=== PATIENT | male | born 1995 | race Caucasian/White ===

== ENCOUNTER 2022-07-11 14:46 | Outpatient (OUT) | payer BC, SELFPAY ==
[2022-07-11 15:29] LABS: Chol HDL Ratio 2.6; Cholesterol 165 mg/dL (<=200); HDL Cholesterol 64 mg/dL (40-60); Thyroid Stimulating Hormone 5.663 uIU/mL (0.358-3.740); Triglycerides 115 mg/dL (<=150)
[2022-07-11 15:39] LABS: Estimated Average Glucose 88 mg/dL; Glycohemoglobin A1C 4.7 % (4.5-6.2)
== END 2022-07-11 14:47 ==
PROVIDERS: PCP Internal Medicine; Visit Provider Internal Medicine
DX: F32.A Depression, unspecified (principal); F41.9 Anxiety disorder, unspecified; Z13.220 Encounter for screening for lipoid disorders; Z13.1 Encounter for screening for diabetes mellitus
CPT/HCPCS: 36415; 80061; 83036; 84443

== ENCOUNTER 2024-03-17 15:34 | Emergency (ER) | payer BC, SELFPAY ==
[2024-03-17 15:44] VITALS: BP 142/84; PULSE 80; PULSE 82; TEMP 36.4; O2SAT 98; O2SAT 99; BMI 37.3
--- NOTE | 2024-03-17 15:51 | ECG_ITS ---
[facility] Test Date: 2024-03-17 Pat Name: JENNIFER VERAS Department: Room: - Gender: Male Color Expert: : 1995 Requested By: SHAIKH EKATERINA Order Number: [id number] Reading MD: DION TINOCO Measurements Intervals [place] Rate: 81 P: 49 VA: 148 QRS: 42 QRSD: 82 T: 57 QT: 366 QTc: 403 Interpretive Statements 1100 Sinus rhythm 9110 normal ECG Compared to ECG 10/22/2021 21:52:03 Sinus bradycardia no longer present Electronically Signed On 03-17-2024 20:23:12 EST by DION TINOCO
--- NOTE | 2024-03-17 15:52 | ED_ITS ---
HPI - Chest Pain General Chief Complaint: Chest Pain Stated Complaint: HEART RACING, DISCOMFORT/PAIN Time Seen by Provider: 03/17/24 15:36 Source: patient Mode of arrival: walk-in Limitations: no limitations History of Present Illness HPI narrative: Patient is a 28-year-old male who presents to the emergency department for evaluation of chest discomfort and palpitations that occurred 2 nights ago. He states he was woken up by multiple episodes of feeling discomfort in his chest and feeling his heart racing. He states it happened several times during the night, he had no symptoms yesterday and today he states he has had headache and some diarrhea. No fevers, cough or congestion. He has no active chest pain, palpitations or shortness of breath. He is noted to be with normal vital signs on arrival. He has no history of heart or lung problems. No sick contacts in the home. He is a former smoker. He denies any peripheral edema, abdominal pain or vomiting. Related Data Home Medications ?Medication ?Instructions ?Recorded ?Confirmed buspirone 30 mg tablet 30 mg PO DAILY 03/17/24 03/17/24 mirtazapine 15 mg tablet 15 mg PO DAILY 03/17/24 03/17/24 omeprazole 40 mg capsule,delayed 40 mg PO DAILY 03/17/24 03/17/24 release Allergies Allergy/AdvReac Type Severity Reaction Status Date / Time No Known Drug Allergies Allergy Verified 03/17/24 15:42 Review of Systems ROS Constitutional Denies: fever or chills Ears, nose, mouth, and throat Denies: throat pain or nasal congestion Cardiovascular Reports: chest pain and palpitations; Denies: edema or swelling of feet/ankles Respiratory Denies: shortness of breath or cough Gastrointestinal Reports: nausea and diarrhea; Denies: vomiting Integumentary/Breast Denies: rash Neurological Reports: headache; Denies: numbness in extremities or weakness in extremities Hematologic/Lymphatic Denies: easy bruising or easy bleeding PFSH PFSH Social History Little interest or pleasure in doing things: not at all Feeling down, depressed, or hopeless: not at all Exam Narrative Exam Narrative: Gen.: Awake, alert, in no distress Head: Normocephalic, atraumatic ENT: Moist mucous membranes Respiratory: No respiratory distress, lungs clear bilaterally Cardio: Regular rate and rhythm Gastrointestinal: Abdomen is soft, nondistended and nontender to palpation Extremities: Moves extremities equally, no pedal edema Psych: Normal mood and affect Neuro: No focal neuro deficit Skin: Warm, dry, intact Constitutional Vital Signs, click to edit/add: Last Vital Signs Temp 97.6 F 03/17/24 15:44 Pulse 77 03/17/24 17:00 Resp 14 03/17/24 17:00 BP 118/69 03/17/24 17:00 Pulse Ox 93 L 03/17/24 17:00 O2 Del Method Room Air 03/17/24 15:44 Course Vital Signs Vital signs: Vital Signs Temperature 97.6 F 03/17/24 15:44 Pulse Rate 82 03/17/24 15:44 Respiratory Rate 16 03/17/24 15:44 Blood Pressure 142/84 H 03/17/24 15:44 Pulse Oximetry 99 03/17/24 15:44 Oxygen Delivery Method Room Air 03/17/24 15:44 Temperature 97.6 F 03/17/24 15:44 Pulse Rate 77 03/17/24 17:00 Respiratory Rate 14 03/17/24 17:00 Blood Pressure 118/69 03/17/24 17:00 Pulse Oximetry 93 L 03/17/24 17:00 Oxygen Delivery Method Room Air 03/17/24 15:44 MDM - Chest Pain MDM Narrative Medical decision making narrative: Laboratory studies reviewed and noted within normal limits including D-dimer and troponin. No EKG changes. Chest x-ray is stable. Patient was given education and reassurance and discharged home to follow-up with primary care. Return to the ER if symptoms change or worsen SUPERVISED APC VISIT, PHYSICIAN ATTESTATION: Based on the medical record the care appears appropriate. ? Medical Records Data Attestation: I reviewed the patient's medical records. Lab Data Attestation: I reviewed the patient's lab results. Labs: Lab Results 03/17/24 Range/Units 15:50 WBC 6.5 (4.0-11.0) 10^3/uL RBC 5.19 (4.70-6.10) 10^6/uL Hgb 16.0 (14.0-18.0) g/dL Hct 46.2 (42.0-54.0) % MCV 89.0 (80.0-94.0) fL MCH 30.8 (25.9-34.0) pg MCHC 34.6 (29.9-35.2) g/dL RDW 12.0 (11.0-15.0) % Plt Count 299 (150-450) 10^3/uL MPV 8.9 L (9.5-13.5) fL Neut % (Auto) 55.2 (43.0-75.0) % Lymph % (Auto) 34.4 (20.5-60.0) % [place] % (Auto) 7.8 (1.7-12.0) % Eos % (Auto) 2.0 (0.9-7.0) % Baso % (Auto) 0.3 (0.2-2.0) % Neut # (Auto) 3.6 (1.4-6.5) 10^3/uL Lymph # (Auto) 2.3 (1.2-3.8) 10^3/uL [place] # (Auto) 0.5 (0.3-0.8) 10^3/uL Eos # (Auto) 0.1 (0.0-0.7) 10^3/uL Baso # (Auto) 0.0 (0.0-0.1) 10^3/uL Abs Immat Gran (auto) 0.02 (0.00-0.03) 10^3/uL Imm/Tot Granulo (auto) 0.3 (0.0-0.5) % D-Dimer <0.19 (<=0.59) mg/L FEU Sodium 141 (136-145) mmol/L Potassium 3.9 (3.5-5.1) mmol/L Chloride 103 (98-107) mmol/L Carbon Dioxide 29.7 (21.0-32.0) mmol/L Anion Gap 12.2 BUN 10.0 (7.0-18.0) mg/dL Creatinine 1.04 (0.70-1.30) mg/dL Est GFR ( Amer) >60 (>=60 mL/min/1.73m^2) Est GFR (Non-Af Amer) >60 (>=60 mL/min/1.73m^2) BUN/Creatinine Ratio 9.6 Glucose 96 (74-106) mg/dL Calcium 9.6 (8.5-10.1) mg/dL Total Bilirubin 1.5 H (0.2-1.0) mg/dL AST 21 (15-37) U/L ALT 55 (16-63) U/L Alkaline Phosphatase 43 L (46-116) U/L Troponin I High Sens 6.9 (4.0-76.1) pg/mL NT-Pro-B Natriuret Pep 28.0 (<=450.0) pg/mL Total Protein 7.4 (6.4-8.2) g/dL Albumin 4.0 (3.4-5.0) g/dL Globulin 3.4 g/dL Albumin/Globulin Ratio 1.2 TSH 2.229 (0.358-3.740) uIU/mL Imaging Data Chest x-ray: Attestation: I have reviewed the pertinent imaging results. ECG Data Attestation: I personally reviewed and interpreted this ECG as follows: (Normal sinus rhythm at a rate of 81, no acute ST elevation or ectopy. EKG reviewed by attending physician) Heart Score History: Slightly/Non-Suspicious ECG: Normal Age: <45 years Risk Factors: 1 or 2 Risk Factors Troponin: <Normal Limit Total Heart Score Recommendations & Risks:: 1 Discharge Plan Discharge Chief Complaint: Chest Pain Clinical Impression: Chest pain Patient Disposition: Home, Self-Care Time of Disposition Decision: 17:09 Condition: Good Prescriptions / Home Meds: No Action buspirone 30 mg tablet 30 mg PO DAILY mirtazapine 15 mg tablet 15 mg PO DAILY omeprazole 40 mg capsule,delayed release(DR/EC) 40 mg PO DAILY Print Language: Austrian Instructions: Noncardiac Chest Pain (ED) Referrals: Shaikh Lehman MD [Primary Care Provider] - 1 week
--- NOTE | 2024-03-17 15:56 | PC.NURSE ---
Patient reports chest pain 2 nights ago, denies chest pain at this time.
[2024-03-17 16:00] VITALS: BP 117/75; PULSE 75; O2SAT 94
[2024-03-17 16:26] LABS: Basophils Percent Auto 0.3 % (0.2-2.0); Eosinophils Absolute Auto 0.1 10^3/uL (0.0-0.7); Hematocrit 46.2 % (42.0-54.0); Immature Granulocytes Abs Auto 0.02 10^3/uL (0.00-0.03); Immature Granulocytes Pct Auto 0.3 % (0.0-0.5); Lymphocytes Absolute Auto 2.3 10^3/uL (1.2-3.8); Lymphocytes Percent Auto 34.4 % (20.5-60.0); Mean Corpuscular HGB Conc 34.6 g/dL (29.9-35.2); Mean Corpuscular Hemoglobin 30.8 pg (25.9-34.0); Mean Platelet Volume 8.9 fL (9.5-13.5); Monocytes Absolute Auto 0.5 10^3/uL (0.3-0.8); Monocytes Percent Auto 7.8 % (1.7-12.0); Neutrophils Absolute Auto 3.6 10^3/uL (1.4-6.5); Neutrophils Percent Auto 55.2 % (43.0-75.0); Platelet Count 299 10^3/uL (150-450); Red Blood Count 5.19 10^6/uL (4.70-6.10); White Blood Count 6.5 10^3/uL (4.0-11.0)
[2024-03-17 16:30] VITALS: BP 133/83; PULSE 75; O2SAT 93
[2024-03-17 16:48] LABS: Alanine Aminotransferase 55 U/L (16-63); Albumin Globulin Ratio 1.2; Alkaline Phosphatase 43 U/L (46-116); Anion Gap 12.2; Aspartate Amino Transferase 21 U/L (15-37); BUN Creatinine Ratio 9.6; Bilirubin Total 1.5 mg/dL (0.2-1.0); Calcium 9.6 mg/dL (8.5-10.1); Carbon Dioxide 29.7 mmol/L (21.0-32.0); Chloride 103 mmol/L (98-107); D Dimer <0.19 mg/L FEU (<=0.59); Estimated GFR (African America >60 (>=60 mL/min/1.73m^2); Estimated GFR (Non-African Ame >60 (>=60 mL/min/1.73m^2); Globulin 3.4 g/dL; Glucose 96 mg/dL (74-106); Potassium 3.9 mmol/L (3.5-5.1); Sodium 141 mmol/L (136-145); Thyroid Stimulating Hormone 2.229 uIU/mL (0.358-3.740); Total Protein 7.4 g/dL (6.4-8.2); Troponin I High Sensitivity 6.9 pg/mL (4.0-76.1)
--- NOTE | 2024-03-17 16:51 | XR_ITS ---
The [address] [address] Patient Name: JENNIFER VERAS MRN: [id number] date: 1995 Sex: M Assigned Patient Location: ER Current Patient Location: ED.MAIN Accession/Order Number: [id number] Exam Date: 03/17/2024 17:00 Report Date: 03/17/2024 18:37 At the request of: ROWENA STRICKLAND Procedure: XR chest 1V EXAM: XR chest 1V HISTORY: Chest pain COMPARISON: 10/22/2021 TECHNIQUE: Chest X-ray AP, 1 view FINDINGS: Support devices: None. Lungs/pleura: No consolidation, effusion, or pneumothorax. Heart and mediastinum: Normal contours. Bones: No acute abnormality identified. XR/XR chest 1V Impression: No radiographic evidence of acute cardiopulmonary process. Electronically authenticated by: JORY GRIFFITH Date: 03/17/2024 18:37
[2024-03-17 17:00] VITALS: BP 118/69; PULSE 77; O2SAT 93
== END 2024-03-17 17:17 | disposition home or self-care (01) ==
PROVIDERS: Physician Assistant; Emergency Provider Emergency Medicine
DX: R07.9 Chest pain, unspecified (principal); Z87.891 Personal history of nicotine dependence; R00.2 Palpitations
CPT/HCPCS: 36415; 71045; 80053; 83880; 84443; 84484; 85025; 85378; 93005; 99285

== ENCOUNTER 2024-05-09 15:21 | Outpatient (OUT) | payer BC, SELFPAY ==
[2024-05-09 15:35] LABS: Basophils Percent Auto 0.5 % (0.2-2.0); Eosinophils Absolute Auto 0.1 10^3/uL (0.0-0.7); Eosinophils Percent Auto 1.2 % (0.9-7.0); Hematocrit 46.7 % (42.0-54.0); Hemoglobin 16.4 g/dL (14.0-18.0); Immature Granulocytes Abs Auto 0.01 10^3/uL (0.00-0.03); Immature Granulocytes Pct Auto 0.2 % (0.0-0.5); Lymphocytes Absolute Auto 2.4 10^3/uL (1.2-3.8); Lymphocytes Percent Auto 36.3 % (20.5-60.0); Mean Corpuscular HGB Conc 35.1 g/dL (29.9-35.2); Mean Corpuscular Hemoglobin 31.1 pg (25.9-34.0); Mean Corpuscular Volume 88.6 fL (80.0-94.0); Mean Platelet Volume 8.9 fL (9.5-13.5); Monocytes Absolute Auto 0.6 10^3/uL (0.3-0.8); Monocytes Percent Auto 8.8 % (1.7-12.0); Neutrophils Absolute Auto 3.5 10^3/uL (1.4-6.5); Platelet Count 306 10^3/uL (150-450); Red Blood Count 5.27 10^6/uL (4.70-6.10); White Blood Count 6.5 10^3/uL (4.0-11.0)
[2024-05-09 16:25] LABS: Alanine Aminotransferase 54 U/L (16-63); Albumin Globulin Ratio 1.2; Albumin Level 4.1 g/dL (3.4-5.0); Alkaline Phosphatase 46 U/L (46-116); Anion Gap 12.3; Aspartate Amino Transferase 21 U/L (15-37); BUN Creatinine Ratio 8.7; Bilirubin Total 1.6 mg/dL (0.2-1.0); Calcium 9.7 mg/dL (8.5-10.1); Chloride 102 mmol/L (98-107); Chol HDL Ratio 2.5; Cholesterol 141 mg/dL (<=200); Estimated GFR (African America >60 (>=60 mL/min/1.73m^2); Estimated GFR (Non-African Ame >60 (>=60 mL/min/1.73m^2); Globulin 3.3 g/dL; Glucose 93 mg/dL (74-106); HDL Cholesterol 57 mg/dL (40-60); LDL Cholesterol Calculated 61.2 mg/dL; Potassium 4.3 mmol/L (3.5-5.1); Sodium 139 mmol/L (136-145); Thyroid Stimulating Hormone 2.541 uIU/mL (0.358-3.740); Total Protein 7.4 g/dL (6.4-8.2); Triglycerides 114 mg/dL (<=150); VLDL CHOLESTEROL 22.8 mg/dL
== END 2024-05-09 15:22 | disposition home or self-care (01) ==
LOC: LAB 15:21
PROVIDERS: PCP Nurse Practitioner; Visit Provider Nurse Practitioner
DX: Z00.00 Encounter for general adult medical examination without abnormal findings (principal)
CPT/HCPCS: 36415; 80053; 80061; 84443; 85025

== ENCOUNTER 2024-05-12 15:04 | Outpatient (REF) | payer BC, SELFPAY ==
[2024-05-12 15:48] LABS: Bilirubin Urine NEGATIVE (NEGATIVE); Blood Urine NEGATIVE (NEGATIVE); Clarity Urine CLEAR (CLEAR); Color Urine LT. YELLOW (YELLOW); Glucose Urine UA NEGATIVE (NEGATIVE); Ketones Urine NEGATIVE (NEGATIVE); Leukocyte Esterase Urine NEGATIVE (NEGATIVE); Nitrite Urine NEGATIVE (NEGATIVE); Protein Urine NEGATIVE (NEG/TRACE); Specific Gravity Urine 1.015 (1.005-1.025); Urobilinogen Urine 0.2 EU/dL (0.2-1.0)
[2024-05-12 15:50] LABS: Urine Microscopic Indicated NO
== END 2024-05-12 15:05 | disposition home or self-care (01) ==
LOC: LAB 15:04
PROVIDERS: PCP Nurse Practitioner; Visit Provider Nurse Practitioner
DX: Z00.00 Encounter for general adult medical examination without abnormal findings (principal)
CPT/HCPCS: 81003

== ENCOUNTER 2024-10-18 15:52 | Emergency (ER) | payer OTHER, BC, SELFPAY ==
--- OUTSIDE RECORDS SUMMARY | 2017-12-31 10:00 | XMS_ITS | Continuity of Care Document ---
Author Organization [facility] Address [address] [place] [address] Phone Care Team Providers Care Artillery Officer Name Role Phone Marco A River Unavailable Unavailable Allergies, Adverse Reactions, Alerts Substance Reaction Status Criticality HYDROCODONE BITARTRATE Active No In formation HOMATROPINE METHYLBROMIDE Active No Information homatropine Active No Information Medications Medication Instructions Dosage Effective Dates (start - stop) Status Comments sertraline 100 mg tablet take 1.5 tablet by oral route every day 150 MG - Active Vistaril 50 mg capsule take 1 capsule by oral route 4 times every day - Active Problems Condition Type Effective Dates (start - stop) Clini tono Status Comments No Known Problems Procedures Procedure Date Prophylaxis Adult Oral Hygiene Instruction Nut[employer] [place] Dis Dec Oral Hygiene Instruction Resin Composite 1s; Posterior 8 Resin Composite 1s; Posterior 8 Oral Hygiene Instruction Oral Hygiene Instruction Resin Composite 2s; Posterior 8 Oral Hygiene Instruction Amalgam 2 Surf Prim/perm IMMUNIZATION ADMIN HPV 9 Valent UDS Exempt Prophylaxis Adult Bitewings Four Films Periodic Oral Eval Estab Patient 2017 [employer] [place] Dis June Oral Hygiene Instruction Resin Composite 2s; Posterior 7 Resin Composite 1s; Posterior 7 Oral Hygiene Instruction Prophylaxis Adult OFFICE/OUTPATIENT VISIT, EST GLYCOSYLATED HEMOGLOBIN TEST URINALYSIS NONAUTO W/O SCOPE OFFICE/OUTPATIENT VISIT, NEW Resin Composite 3s; Posterior 6 Resin Composite 2s; Posterior 6 Prophylaxis Adult Periodic Oral Eval Estab Patient 2015 Bitewings Four Films Prophylaxis Adult Topical Sven Of Flouride Varnish 015 Tobacco Counseling Oral Hygiene Instruction Comp Oral Eval New/estab Patient 2013 Intraoral-complete Series (bw) 14 Prophylaxis Adult Advance Directives Directive Yes / No Effective Date File Name No Information Encounters Encounter Description Practice Location Reason(s) For Visit Diagnoses Date Provider Providers Copied on Encounter [facility], [address] [place] [address], [id number] , tel:[phone] Dental Clinic Encounter for screening for dental disorders 8 Perico Strickland. [address] [place] [address], [id number], [place]. tel:[phone] [address] [place] [address], [address] [place] [address], [id number] , tel:[phone] [facility] Sertraline refill (chief complaint) Body mass index (BMI) 40.0-44.9, adultAnxietyWei ght gain 8 Genesis Acevedo. [address] [place] [address], [id number], [place]. tel:[phone] [address] [place] [address], [address] [place] [address], [id number] , tel:[phone] Dental Clinic filling (chief complaint) Encounter for screening for dental disorders 8 Shiloh DMD Sushaen. [address] [place], [address], [place]. tel:[phone] [facility], [address] [place], [place], [id number] , [place] tel:[phone] Dental Clinic filling (chief complaint) Encounter for screening for dental disorders 8 Shiloh DMD Sushaen. [address] [place], [address], [place]. tel:[phone] [facility], [address] [place], [place], [id number] , [place] tel:[phone] Dental Clinic filling (chief complaint) Encounter for screening for dental disorders 8 Shiloh DMD Sushaen. [address] [place], [address], [place]. tel:[phone] [facility], [address] [place] [address], [id number] , [place] tel:[phone] [facility] No Information 8 Chava Guillen. [address] [place], [place], [id number], [place]. tel:[phone] [facility], [address] [place] [address], [id number] , [place] tel:[phone] Dental Clinic prophy (chief complaint) Encounter for screening for dental disorders 8 Santy pleitez DMD Deepasulochana . [address] [place], [address], [place]. tel:[phone] [facility], [address] [place] [address], [id number] , [place] tel:[phone] [facility] anxiety meds (chief complaint)D ennison: (chief complaint) AnxietyMelanocy tic nevi of trunkBody mass index (BMI) 36.0-36.9, adult Fe 8 Cali Hubbard. [address] [place], [address], [place]. tel:[phone] [facility], [address] [place], [place], [id number] , [place] tel:[phone] Dental Clinic filling (chief complaint) Encounter for screening for dental disorders 7 Aron Moyer. [address] [place], [place], [id number], [place]. tel:[phone] [facility], [address] [place], [place], [id number] , [place] tel: [phone] Dental Clinic prophy (chief complaint) Encounter for screening for dental disorders 7 Arnol DMD Jinbo. [address] [place], [address], [place]. tel:[phone] OFFICE/OUTPA TIENT VISIT, EST [facility], [address] [place] [address], [id number] , [place] tel: [phone] [facility] well check (chief complaint)m edication refill (chief complaint) AnxietyUrinary frequency 7 Freedom Ramos. [address] [place] [address], [id number], [place]. tel:[phone] OFFICE/OUTPA TIENT VISIT, NEW [facility], [address] [place] [address], [id number] , [place] tel: [phone] [facility] est care (chief complaint)a nxiety (chief complaint) Anxiety 6 Freedom Ramos. [address] [place], [place], [id number], [place]. tel:[phone] [facility], [address] [place] [address], [id number] , [place] tel:[phone] Dental Clinic Encounter for screening for dental disorders 0 6 Valeriano DMD Stephanie. [address], [place], [id number], [place]. tel:[phone] [facility], [address] [place] [address], [id number] , [place] tel:[phone] Dental Clinic Encounter for screening for dental disorders 6 [place] DMD May. [address] [place], [place], [id number], [place]. tel:[phone] [facility], [address] [place] [address], [id number] , tel: [phone] Dental Clinic Dental examination 5 [facility] May. [address], [place], [id number], [place]. tel:[phone] [facility], [address] [place] [address], [id number] , tel: [phone] Dental Clinic Dental examinationDent al examination [facility] May. [address], [place], [id number], [place]. tel:[phone] Family History Family Member Type Diagnosis Age At Onset Mother Problem (finding) Alive and well Paternal grandfather Problem (finding) Diabetes mellit Father Problem (finding) Alive and well Father Problem (finding) hypertension Immunizations Vaccine Date Status Comments HPV (9-valent) administered Source: New I mmunization Record Payers Payer name Insurance type Covered green party ID Geri stroud(s) Tisha Medicaid Wrap - [employer] [place] [id number] [employer] Medicaid [place] [id number] Medicaid Wrap - [employer] [place] [id number] Social History Type Description Quantity Date Captured Comments Alcohol Use Details hard liquor Caffeine Use Details soda > 32oz per day Tobacco Use Status Smoking Status Heavy tobacco smoker Sex Male Sexual Orientation Straight or heterosexual Gender Identity Male Vital Signs Date / Time: Height Weight BMI Pulse Rate Blood Pressure Temperature Respiratory Rate Body Surface Area Head Circumference Head Circ. Percentile Wt./Jagdeep. Percentile BMI percentile Pulse Ox Inhaled Ox 2:19 PM 71 /min 134/78 mm[Hg] Chief Complaint And Reason For Visit No Information Reason For Referral Reason For Referral No Information Plan Of Treatment Date Type Action Status Goal Tdap. Due on due Goal Depression screening. Due on due Goal H&P. Due on due Goal Influenza vaccine. Due on due Goal RLP. Due on due Goal Depression screening. Due on due Goal Tdap. Due on due Goal H&P. Due on due Goal RLP. Due on due Goal Influenza vaccine. Due on No due Goal Dietary management education , guidance, and counseling completed Goal RLP. Due on due Goal H&P. Due on due Goal Tdap. Due on due Goal Influenza vaccine. Due on due Goal Depression screening. Due on due Goal Tdap. Due on due Goal RLP. Due on due Goal Depression screening. Due on due Goal H&P. Due on due Goal Influenza vaccine. Due on due Goal Influenza vaccine. Due on due Goal Depression screening. Due on due Goal H&P. Due on due Goal Tdap. Due on due Goal RLP. Due on due Goal RLP. Due on due Goal Influenza vaccine. Due on due Goal Tdap. Due on due Goal Depression screening. Due on due Goal H&P. Due on due Goal H&P. Due on due Goal Influenza vaccine. Due on Ma y due Goal RLP. Due on due Goal Depression screening. Due on due Goal Tdap. Due on due Goal H&P. Due on due Goal Tdap. Due on due Goal RLP. Due on due Goal Depression screening. Due on due Goal Influenza vaccine. Due on due Goal Dietary management education , guidance, and counseling completed Goal H&P. Due on due Goal Influenza vaccine. Due on due Goal Tdap. Due on due Goal TD Vaccine. Due on 17 due Goal Tdap. Due on due Goal TD Vaccine. Due on 17 due Goal Influenza vaccine. Due on due Goal H&P. Due on due Goal Influenza vaccine. Due on due Goal Abdominal ultrasound. Due on due Goal H&P. Due on due Goal Tdap. Due on due Goal TD Vaccine. Due on 17 due Goal Tobacco cessation counseling completed Goal HPV (1st). Due on 6 due Goal Tdap. Due on due Goal H&P. Due on due Goal TD Vaccine. Due on 16 due Goal Depression screening. Due on due Goal H&P. Due on due Goal TD Vaccine. Due on 16 due Goal Tdap. Due on due Goal HPV (). Due on 6 due Goal TD Vaccine. Due on 16 due Goal HPV (). Due on 6 due Goal H&P. Due on due Goal Depression screening. Due on due Goal Tdap. Due on due Goal Depression screening. Due on due Goal Tdap. Due on due Goal TD Vaccine. Due on 15 due Goal HPV (). Due on 5 due Goal H&P. Due on due Goal TD Vaccine. Due on 14 due Goal H&P. Due on due History Of Present Illness Encounter Date Complaint History Of Prese nt Illness Sertraline refill Patient is her e today for his annual exam and a Sertraline refill. Patient states he feels the dose needs to be a little bit stronger. Patient states no other issues/concerns at this time. TGrodi [employer] filling continue with tr eatment filling filling continue with treatment filling continue with tr eatment prophy anxiety meds Pt would like to restart Zoloft. Pt came off a few months ago to see if he could tolerate not being on it. Pt states he realized he does better on this medication and would like to restart it. Seema [place]: Realized he stil l needs Zoloft and he has been off of it for three to four months. He states that he has some difficulty with anxiety. He was on 100 mgm/day. Surgeries were an appendectomy and a benign mass removed from sinus. There is no other past medical Hx and he is not a smoker. filling prophy well check Patient states christiano davidson desires to be checked for diabetes. He has been having frequent urination for a couple months. SUSAN Guevara medication refill He just picked up his last refill of Sertraline. Thinks its working, but could be better. est care Patient here for est care. Has no PCP. SUSAN Guevara anxiety Additional infor osbaldo: Pt has hx of anxiety that he tried a medication for in the past. He stopped taking it because it affected his sex life. He can't remember what it was. He now desires medication again. States he has constant anxiety with panic attacks. SUSAN Guevara. Functional Status Date Functional Assessmen t No Information Instructions Date Instruction Additional Infor osbaldo Giving encouragement to exercise Related to Body mass index (BMI) 40.0-44.9, adult Dietary management e ducation, guidance, and counseling Related to Body mass index (BMI) 40.0-44.9, adult Giving encouragement to exercise Related to Body mass index (BMI) 36.0-36.9, adult Dietary management e ducation, guidance, and counseling Related to Body mass index (BMI) 36.0-36.9, adult Assessments Type Assessment Date assessment Encounter for screening for dent al disorders Patient Care Teams Name Effective Dates (start - stop) Status Members No Information
--- OUTSIDE RECORDS SUMMARY | 2023-08-19 11:30 | XMS_ITS ---
Author Organization [facility] Address [address] [place] [address] Care Team Providers Care Solid State Tester Name Role Phone Sadia [id number] Ruby Simeon [phone] REASON FOR VISIT Tetanus Vaccine Medications Medication SIG (Take, Route, Frequency, Duration) Notes Start Date End Date Status busPIRone HCl 30 MG 1.5 tab(s) orally 2 times a day Active hydrOXYzine HCl does not know dosage *Please review and pick correct strength-formulatio n from LeadiDspan options. If intended option is not shown, discontinue and re-order from Quick Search* Active Venlafaxine HCl does not known dosage *Please review and pick correct strength-formulatio n from Medispan options. If intended option is not shown, discontinue and re-order from Quick Search* Active Ibuprofen prn *Please revi ew and pick correct strength-formulatio n from Medispan options. If intended option is not shown, discontinue and re-order from Quick Search* Active Encounters Encounter Location Date Provider Diagnosis [id number] [place] [address] 08/19/2023 Ruby Mccullough Plan Of Treatment No Information Progress Notes * EDA CbDOB:1995 (29 yo M)Acc No.[id number]:08/19/2023 Progress Note Patient: Cb SAVAGE Provider: DEREK Dumont :1995 A ge:28 Y S ex:Male Date:08/19/2023 External Visit ID:[id number] [id number] Pcp:Declined Subjective: * Chief Complaints: * 1 . Tetanus Vaccine. * Medical History: * Medications: T aking Ibuprofen , Notes to Pharmacist: prn *Please review and pick correct strength-formulation from Medispan options. If intended option is not shown, discontinue and re-order from Quick Search*, Taking Venlafaxine HCl , Notes to Pharmacist: does not known dosage *Please review and pick correct strength-formulation from Medispan options. If intended option is not shown, discontinue and re-order from Quick Search*, Taking hydrOXYzine HCl , Notes to Pharmacist: does not know dosage *Please review and pick correct strength- formulation from Medispan options. If intended option is not shown, discontinue and re-order from Quick Search*, Taking busPIRone HCl 30 MG Tablet 1.5 tab(s) orally 2 times a day Objective: * Vitals: Assessment: Plan: * Treatment: * Billing Information: * Visit Code: * Procedure Codes: Care Plan Details* * Electronic signature of [id number] uRby Mccullough APRN on 10/18/2024 at 03:09 PM CDT Sign off status: Pending * Provider: DEREK Dumont Date: 08/19/2023 Generated for Angel quarles/Carli/Kelley on: 10/18/2024 03:09 PM CDT
--- OUTSIDE RECORDS SUMMARY | 2024-10-18 16:09 | XMS_ITS | Encounter Summary ---
Author Organization [facility] Address [address] [address] Care Team Providers Care Furnace Keeper Name Role Phone Shaikh MICAH Lehman Unavailable [phone] Shaikh MICAH Lehman Primary Care Provider [phone] Diony Horowitz MD Primary Care Provider [phone] Leighann Sweeney NP Unavailable [phone] Encounter Details Date Type Department Care Team (Late st Contact Info) Description 05/21/2023 Orders Only [facility] [address] [place] [address] Shaikh Lehman MD [address] [place] [address] Social History Tobacco Use Types Packs/Day Years Used Date Smoking Tobacco: Former Cigarettes Q uit: 2013 Passive Smoke Exposure: Past Smokeless Tobacco: Never Alcohol Use Standard Drinks/Week Comments Never 0 (1 standard drink = 0.6 oz pur e alcohol) caffeine: soda/pop PHQ-2 Answer Date Recorded Patient Health Questionnaire-2 Score 0 05/01/2023 Sex and Gender Information Value Date Recorded Sex Assigned at Not on file Legal Sex Male 7:29 PM EDT Gender Identity Not on file Sexual Orientation Not on file documented as of this encounter Plan of Treatment Not on file documented as of this encounter Procedures Procedure Name Priority Date/Time Associated Diagnosis Comments SCANNED LABS Routine 05/21/2023 11:11 AM EDT documented in this encounter Results * SCANNED LABS (05/21/2023 11:11 AM EDT) Shaikh Fallon [facility]G PERFORMABLES Final Resu lt documented in this encounter Visit Diagnoses Not on filedocumented in this encounter Care Teams Furnace Keeper Relationship Specialty Start Date End Date Shaikh Lehman MD [address] [place] [id number] [facility]22 Shaikh Lehman MD [address] [place] [phone] PCP - General Internal Medicine 04/30/23 10/09/23 Diony Horowitz MD [address] [place] [phone] PCP - General Family Medicine 10/10/23 Leighann Sweeney NP [address] [place] [id number] Nurse Practitioner Family Medicine 10/10/23 documented as of this encounter
--- OUTSIDE RECORDS SUMMARY | 2024-10-18 16:09 | XMS_ITS | Patient Health Record ---
Author Organization [facility] Address [address] [place] [address] Support Name Relationship Address Phone ÁngelCb meehan Guarantor Unknown [phone] Allergies Allergen (clinical drug ingredient) Drug/Non Drug Allergy documented on EMR Reaction Allergy Type Onset Date Status homatropine / hydrocodone Hycodan hives Drug Allergy Active Reason For Referral No Information Medications Medication SIG (Take, Route, Frequency, Duration) Notes Start Date End Date Status busPIRone HCl 30 MG 1.5 tab(s) orally 2 times a day Active hydrOXYzine HCl does not know dosage *Please review and pick correct strength-formulatio n from Lozoan options. If intended option is not shown, discontinue and re-order from Quick Search* Active Venlafaxine HCl does not known dosage *Please review and pick correct strength-formulatio n from Lozoan options. If intended option is not shown, discontinue and re-order from Quick Search* Active Ibuprofen prn *Please revi ew and pick correct strength-formulatio n from Lozoan options. If intended option is not shown, discontinue and re-order from Quick Search* Active Immunizations Vaccine Route Administration Date Status Comme nts [id number] Fluzone Quad .5mL PFS 3 yrs (0.5mL Admin)NONMEDICARE IM Intramuscular 02/28/2017 Administered z7 Fluzone Quad .5mL PFS 3 yrs (0.5mL Admin)NONMEDICARE IM Intramuscular 11/12/2017 Administered [id number] Quad PFS (0.5mL Admin) 18 y/o & older Unknown 01/12/2021 Refused [id number] Quad PFS (0.5mL Admin) 18 y/o & older Unknown 01/23/2021 Refused Problems Problem Type SNOMED Code ICD Code Onset Dates Problem Status W/U Status Risk Notes Diagnosis Gastroenteritis (65087030) Gastroenteritis (K52.9) Inactive confirmed Finding Body mass index 40+ - morbidly obese (642784378) BMI 40.0-44.9, adult (Z68.41) Active confirmed Diagnosis Diarrhea (06030543) Diarrhea, unspecified type (R19.7) Active confirmed Finding Elevated blood-pressure reading without diagnosis of hypertension (981742312) Elevated blood pressure reading (R03.0) Active confirmed Plan Of Treatment No Information Insurance Providers Payer Name Payer Address Payer Phone Subscriber Number Group Number Insured Name Patient Relationship to Insured Coverage Start Date Coverage End Date [facility] [address] [place] [address] [id number] Cb Velásquez Self - patient is the insured Medical (General) History Medical History History ICD Code anxiety Surgical History Surgery Date(Month/Year) umbilical hernia repair 09/2020
--- OUTSIDE RECORDS SUMMARY | 2024-10-18 16:09 | XMS_ITS | CCD ---
Author Organization [facility] Care Team Providers Care Juvenile Detention Officer Name Role Phone MD Isabela Celeste Attending Provider Dr. KASEY DOMINGUEZ Attending Unavailable DO Memo Martinez Attending Provider [phone] [facility], Services Primary Care Provider DO Brett Mendez Other Provider JENNY Laguerre Attending Provider REQUEST, DR NONE LISTED Primary Care Unavaila ble JOSE J ., NIK Attending Unavailable JOSE J ., NIK Consulting Unavailable JOSE J ., NIK Admitting Unavailable REQUEST, NONE LISTED Primary Care Unavaila ble JOSE J ., NIK Attending Unavailable JOSE J ., NIK Admitting Unavailable JOSE ALEJANDRO, DR KEE Nascimento Consulting Unavailable HANNA BONILLA Consulting Unavailable REQUEST, NONE LISTED Primary Care Unavaila ble MARKER, SONIA Attending Unavailable MARKER, SONIA Consulting Unavailable MARKER, SONIA Admitting Unavailable ANTONY MORALES Consulting Unavailable Terri PAZ Attending Unavailable SHAIKH LEHMAN Primary Care Unavailable Terri PAZ Attending Unavailable DO Terri Cuellar Emergency Provider MD Sade Lehman Primary Care Provider DO Terri Cuellar Emergency Provider MD Sade Lehman Primary Care Provider DO Frederick Schwab Emergency Provider MD Sade Ram Primary Care Provider MD Sade Lehman Attending Provider MD Lily Hennessy Attending Provider Fawwad, Stuart Primary Care Unavailable Terri Cuellar Admitting Unavailable Terri Cuellar Attending Unavailable Fawwad, Stuart Primary Care Unavailable Frederick Schwab Admitting Unavailable Frederick Schwab Attending Unavailable Fawwad, Stuart Primary Care Unavailable Fawwad, Stuart Attending Unavailable Fawwad, Stuart Admitting Unavailable Fawwad, Stuart Attending Unavailable Fawwad, Stuart Admitting Unavailable Fawwad, Stuart Primary Care Unavailable Hennessy, Lily Admitting Unavailable Hennessy Lily Attending Unavailable Fawwad, Stuart Primary Care Unavailable Fawwad, Stuart Primary Care Unavailable Hennessy, Lily Admitting Unavailable Hennessy Lily Attending Unavailable Diony Horowitz MD Primary Care Provider Patel TELETYPESETTER, Suad Unavailable [phone] Patel TELETYPESETTER, Suad Unavailable SUAD SWEENEY Attending Unavailabl e LILIANE DOYLE Attending Unavailable HENNESSY V LILY Attending Unavailable USAD SWEENEY Attending Unavailabl e YANIRA LILAINE Attending Unavailable YANIRA LILIANE Referring Unavailable Allergies Allergy Classification Reported Allergen(s) Allergy Type Date of Onset Reaction(s) Facility (20 sources) homatropine; Translations: [homatropine] Drug Allergy 0 [facility] (20 sources) HYDROcodone; Translations: [hydrocodone] Drug Allergy 0 [facility] (2 sources) homatropine / HYDROcodone; Translations: [homatropine-hyd rocodone] Drug Allergy Weal (disorder) [facility] (1 source) homatropine / HYDROcodone Drug Allergy 3 [facility] (20 sources) Hydrocodone Bit-Homatrop Mbr Drug Allergy 4 Hives, Unknown [facility] Medications Current Medications Medication Drug Class(es) Dates Sig (Normalized) Sig (Original) acetaminophen 325 mg / oxyCODONE hydrochloride 5 mg oral tablet (1 source) Opioid Agonist Start: 06-14-2023 take 1 tablet by mouth every six hours Oxycodone-Acetami nophen Active 1 TAB PO Q6H 01 09June 14, 2023 Start: 06-14-2023 take 1 tablet by calista th every six hours Oxycodone-Acetaminophen Active 1 TAB PO Q6H 28 June 14, 2023 amoxicillin 875 mg / clavulanate 125 mg oral tablet (3 sources) Penicillin-class Antibacterial Start: 09-09-2024 End: 09-19-2024 take 1 tablet by mouth in the morning amoxicillin-clavulanate (Augmentin) 875-125 MG tablet Indications: Lump of scalp Take 1 tablet (875 mg) by mouth in the morning and 1 tablet (875 mg) before bedtime. Do all this for 10 days. Take with food. 20 tablet 09/09/2024 09/19/2024 Active aspirin 81 mg delayed release oral tablet (2 sources) Platelet Aggregation Inhibitor, Nonsteroidal Anti-inflammatory Drug Start: 05-31-2023 take 1 tablet by mouth once daily Aspirin (Adult Aspirin Regimen) 81 mg tablet,delayed release (DR/EC) Active 81 MG PO Daily May 31, 2023 12:00am busPIRone hydrochloride 30 mg oral tablet (20 sources) Start: 05-31-2023 End: 12-17-2024 take 1 tablet by mouth in the morning busPIRone (Buspar) 30 MG tablet Indications: RITA (generalized anxiety disorder) Take 1 tablet (30 mg) by mouth in the morning and 1 tablet (30 mg) before bedtime. 180 tablet 09/18/2024 12/17/2024 Active Start: 11-29-2018 take 1 mg by mouth twice daily busPIRone 7.5 mg oral tablet mg tab(s), Oral, BID, Refills(s) 0 Start Date: 11/29/18 Status: Ordered hydrOXYzine pamoate 25 mg oral capsule (1 source) Antihistamine Start: 11-29-2018 take 1 mg by mouth four times daily Vistaril 25 mg Cap mg cap(s), Oral, QID, Refills(s) 0 Start Date: 11/29/18 Status: Ordered ketoconazole 20 mg/ml topical cream (5 sources) Azole Antifungal Start: 04-23-2024 End: 05-20-2024 ketoconazole (NIZOral) 2 % cream Indications: Balanitis Apply topically Daily for 21 days Apply to affected area of penis once daily, thin layer, use up to 21 days 30 g 04/23/2024 05/20/2024 Active mirtazapine 15 mg oral tablet (20 sources) Start: 05-31-2023 End: 11-05-2024 take 1 tablet by mouth at bedtime mirtazapine (Remeron) 15 MG tablet Indications: RITA (generalized anxiety disorder) Take 1 tablet (15 mg) by mouth at bedtime 90 tablet 08/07/2024 11/05/2024 Active nystatin 100 unt/mg topical ointment (2 sources) Polyene Antifungal Start: 05-20-2024 End: 06-03-2024 nystatin (Mycostatin) ointment Indications: Candidiasis Apply topically in the morning and before bedtime. Do all this for 14 days. 60 g 05/20/2024 06/03/2024 Active omeprazole 40 mg delayed release oral capsule (20 sources) Proton Pump Inhibitor Start: 05-01-2023 End: 11-09-2024 take 1 capsule by mouth before mealtime omeprazole (PriLOSEC) [address] capsule Indications: Epigastric pain Take 1 capsule (40 mg) by mouth in the morning. Take before meals. Do not crush or chew. 90 capsule 08/11/2024 11/09/2024 Active sertraline 100 mg oral tablet (9 sources) Serotonin Reuptake Inhibitor Start: 11-29-2018 take 1 mg by mouth once daily sertraline 100 mg Tab mg tab(s), Oral, Daily, Refills(s) 0 Start Date: 11/29/18 Status: Ordered Start: 01-30-2018 End: 04-02-2018 take 100 mg by mouth once daily Sertraline Discontinued 100 MG PO Daily January 30, 2018 1:00am April 02, 2018 3:26pm Completed/Discontinued Medications Medication Drug Class(es) Dates Sig (Normalized) Sig (Original) cyclobenzaprine hydrochloride 5 mg oral tablet (5 sources) Muscle Relaxant Start: 01-29-2023 End: 05-31-2023 take 5 mg by mouth once daily Cyclobenzaprine Discontinued 5 MG PO Daily 7 January 29, 2023 6:12am May 31, 2023 8:39am FLUoxetine 20 mg oral tablet (8 sources) Serotonin Reuptake Inhibitor Start: 07-20-2019 End: 05-31-2023 take 10 mg by mouth once daily Fluoxetine Discontinued 10 MG PO Daily July 20, 2019 12:00am May 31, 2023 8:40am ondansetron 4 mg disintegrating oral tablet (20 sources) Serotonin-3 Receptor Antagonist Start: 07-20-2019 End: 05-31-2023 take 4 mg by mouth every eight hours Ondansetron Discontinued 4 MG PO Q8H July 20, 2019 12:00am May 31, 2023 8:42am Start: 11-29-2018 take 1 mg by mouth e very eight hours Zofran 4 mg Tab mg tab(s), Oral, q8hr, Refills(s) 0 Start Date: 11/29/18 Status: Ordered Start: 04-02-2018 take 4 mg by mouth t hree times daily Ondansetron Hcl Active 4 MG PO Three times daily April 02, 2018 1:00am Start: 01-30-2018 End: 02-04-2018 take 1 tablet by mouth three times daily Ondansetron Hcl (Zofran) 4 mg tablet Discontinued 4 MG PO Three times daily 15 January 30, 2018 1:00am February 04, 2018 1:02am promethazine hydrochloride 25 mg oral tablet (8 sources) Phenothiazine Start: 01-30-2018 End: 04-02-2018 take 25 mg by mouth every six hours Promethazine Discontinued 25 MG PO Q6H January 30, 2018 1:00am April 02, 2018 3:26pm Problems Active Problems Problem Classification Problem Date Documented Date Episodic/Chronic Adjustment disorders (14 sources) Adjustment disorder with depressed mood; Translations: [Adjustment disorder with depressed mood] Onset: 04-23-2024 04-23-2024 Chronic Anxiety disorders (20 sources) Anxiety disorder, unspecified; Translations: [Generalized anxiety disorder] Onset: 10-25-2021 12-24-2023 Chronic Contraceptive and procreative management (1 source) Contraception status 11-29-2018 Episodic E Codes: Unspecified (1 source) Activity, exercise machines primarily for cardiorespiratory conditioning; Translations: [ACTV EXERCISE MACH PRIM CARDIORESP] Onset: 06-21-2022 Episodic Esophageal disorders (14 sources) Gastroesophageal reflux disease; Translations: [Gastro-esophageal reflux disease without esophagitis] Onset: 04-23-2024 04-23-2024 Chronic Headache; including migraine (20 sources) Cluster headache; Translations: [Cluster headache syndrome, unspecified, not intractable] Onset: 11-05-2023 11-05-2023 Chronic Inflammatory conditions of male genital organs (12 sources) Balanitis; Translations: [Balanitis] Onset: 04-23-2024 04-23-2024 Chronic Other aftercare (1 source) Other care home (current) drug therapy; Translations: [OTH [facility] CURRENT DRUG THERAPY] Onset: 06-21-2022 Episodic Other connective tissue disease (1 source) Other soft tissue disorders related to use, overuse and pressure other site; Translations: [OTH SOFT TISS D/O USE PRSS OTH SITE] Onset: 06-21-2022 Episodic Other nervous system disorders (1 source) Acute postoperative pain; Translations: [Other acute postprocedural pain] 06-14-2023 Episodic Other non-traumatic joint disorders (4 sources) Pain in left knee; Translations: [PAIN IN LEFT KNEE] Onset: 06-20-2022 Episodic Other non-traumatic joint disorders (1 source) Pain in right knee; Translations: [PAIN IN RIGHT KNEE] Onset: 06-21-2022 Episodic Other nutritional; endocrine; and metabolic disorders (20 sources) Obesity caused by energy imbalance; Translations: [Morbid (severe) obesity due to excess calories] Onset: 05-01-2023 05-01-2023 Chronic Other nutritional; endocrine; and metabolic disorders (12 sources) Body mass index 30+ - obesity; Translations: [Body mass index (BMI) 37.0-37.9, adult] Onset: 04-23-2024 04-23-2024 Chronic Residual codes; unclassified (20 sources) Obstructive sleep apnea syndrome; Translations: [Obstructive sleep apnea (adult) (pediatric)] Onset: 05-01-2023 Resolved: 04-23-2024 05-01-2023 Chronic Screening and history of mental health and substance abuse codes (1 source) Personal history of nicotine dependence; Translations: [PERSONAL HISTORY OF NICOTINE DEPEND] Onset: 06-21-2022 Episodic Sprains and strains (2 sources) Strain of other muscle(s) and tendon(s) at lower leg level, left leg, initial encounter; Translations: [Strain of other muscle(s) and tendon(s) at lower leg level, right leg, initial encounter] Onset: 06-21-2022 Episodic Substance-related disorders (1 source) Nicotine dependence, cigarettes, uncomplicated; Translations: [NICOTINE DEPEND CIGARETTES UNCOMP] Onset: 10-25-2021 Chronic Unclassified (6 sources) Patient on antidepressant monitoring plan Onset: 08-07-2024 08-07-2024 Unclassified (6 sources) Baseline PHQ-9 Onset: 08-07-2024 08-07-2024 Past or Other Problems Problem Classification Problem Date Documented Date Episodic/Chronic Abdominal pain (20 sources) Epigastric pain; Translations: [Epigastric pain] Onset: 05-01-2023 05-01-2023 Episodic Biliary tract disease (20 sources) Calculus of gallbladder with chronic cholecystitis without obstruction; Translations: [Biliary calculus] Onset: 05-01-2023 Resolved: 04-23-2024 05-22-2023 Episodic E Codes: Cut/pierceb (1 source) Contact with other sharp object(s), not elsewhere classified, initial encounter; Translations: [CNTC OTH SHRP OB NOT ELSW CLASS INI] Onset: 01-16-2022 Episodic Mycoses (10 sources) Candidiasis; Translations: [Candidiasis, unspecified] Onset: 05-20-2024 05-20-2024 Episodic Nausea and vomiting (20 sources) Nausea and vomiting; Translations: [Nausea with vomiting, unspecified] Onset: 02-07-2023 07-20-2019 Episodic Nonspecific chest pain (20 sources) Chest pain, unspecified; Translations: [Other chest pain] Onset: 10-22-2021 Episodic Open wounds of extremities (4 sources) Laceration without foreign body of right index finger without damage to nail, initial encounter; Translations: [LAC W/O FB RT IF W/O DMG NAIL INIT] Onset: 01-11-2022 Episodic Other circulatory disease (20 sources) Elevated blood-pressure reading without diagnosis of hypertension; Translations: [Elevated blood-pressure reading, without diagnosis of hypertension] Onset: 02-07-2023 02-07-2023 Episodic Other connective tissue disease (20 sources) Spasm; Translations: [Other muscle spasm] Onset: 02-07-2023 01-29-2023 Episodic Other connective tissue disease (1 source) Other muscle spasm; Translations: [Other muscle spasm] Onset: 01-29-2023 Episodic Other ear and sense organ disorders (20 sources) Bilateral hearing loss; Translations: [Impacted cerumen, bilateral] Onset: 02-07-2023 02-07-2023 Episodic Other liver diseases (14 sources) Hyperbilirubinemia; Translations: [Unspecified jaundice] Onset: 05-10-2024 05-10-2024 Episodic Other screening for suspected conditions (not mental disorders or infectious disease) (20 sources) Other specified abnormal findings of blood chemistry; Translations: [Patient encounter status] Onset: 05-01-2023 Resolved: 04-23-2024 05-01-2023 Episodic Other skin disorders (7 sources) Lesion of scalp; Translations: [Disorder of the skin and subcutaneous tissue, unspecified] Onset: 02-07-2023 02-07-2023 Episodic Other skin disorders (20 sources) Disorder of scalp; Translations: [Localized swelling, mass and lump, head] Onset: 02-07-2023 02-26-2024 Episodic Residual codes; unclassified (1 source) Procedure and treatment not carried out because of patient's decision for other reasons; Translations: [PROC AND TX NOT CARRIED OUT PT OTH RSN] Onset: 10-25-2021 Episodic Unclassified (1 source) Patient encounter status Resolved: 11-29-2018 11-29-2018 Results Test Name Value Interpretation Reference Range Facility [facility] 05-22-2024 US LIVER EXAM: Liver Ultrasou nd: REASON FOR EXAM: Elevated LFTs. COMPARISON: 05/22/2023 ultrasound. TECHNIQUE: Real-time ultrasonographic evaluation with color-flow Doppler and spectral analysis is provided. FINDINGS: The gallbladder is not identified compatible with surgical absence. The common bile duct is not dilated. Right renal morphology and echotexture are normal. Negative for hydronephrosis or stone. Hepatic parenchymal echotexture is slightly increased suggesting fatty infiltration. The liver is not enlarged. No space-occupying process is identified in the liver. Negative for ascites. Measurements: CBD: 0.27 cm Right kidney: 11.5 x 5.1 x 5.6 cm Liver: 16.3 cm IMPRESSION: 1. Hepatic steatosis. 2. Cholecystectomy without biliary ductal dilatation. *This report is generated using voice recognition reporting ([email or web address]). On occasion [employer]lass[employer] erroneously drops words from the report or replaces the spoken word with similar sounding words. Please call with any questions/concerns regarding this report.* Dictated and transcribed 05/23/2024/sterling This report has been electronically signed and approved by the interpreting radiologist. Normal Not Available [facility] UA (CLEAN/CATCH) MICROSC OPIC IF INDICATEon 05-12-2024 BILIRUBIN URINE Negative NEGATIVE [facility] BLOOD URINE Negative NEGATIVE [facility] Clarity (U) CLEAR CLEAR [facility] Color (U) LT. YELLOW YELLOW [facility] GLUCOSE URINE UA Negative NEGATIVE mg/dL [facility] Ketones Ql (U) Negative NEGATIVE mg/dL [facility] Leukocyte esterase Test strip Ql (U) Negative NEGATIVE [facility] NITRITE URINE Negative NEGATIVE [facility] pH (U) 6.0 [pH] 5.0 - 9.0 [facility] PROTEIN URINE Negative NEG/TRACE mg/dL [facility] SPECIFIC GRAVITY URINE 1.015 1.005 - 1.025 [facility] URINE MICROSCOPIC INDICATED NO [facility] UROBILINOGEN URINE 0.2 EU/dL 0.2 - 1.0 EU/dL [facility] ALL CBC WITH AUTO DIFFon BASOPHILS ABSOLUTE AUTO 0 [facility] Basophils/100 WBC (Bld) 0.5 % 0.2 - 2.0 % [facility] Eosinophils/100 WBC (Bld) 1.2 % 0.9 - 7.0 % [facility] Erythrocyte distribution width (RBC) [Ratio] 12 % 11.0 - 15.0 % [facility] Hematocrit (Bld) [Volume fraction] 46.7 % 42.0 - 54.0 % [facility] Hemoglobin (Bld) [Mass/Vol] 16.4 g/dL 14.0 - 18.0 g/dL [facility] IMMATURE GRANULOCYTES ABS AUTO 0.01 [facility] Immature granulocytes/100 WBC (Bld) 0.2 % 0.0 - 0.5 % [facility] Interpretation and review of laboratory results Abnormal [facility] LYMPHOCYTES ABSOLUTE AUTO 2.4 [facility] Lymphocytes/100 WBC (Bld) 36.3 % 20.5 - 60.0 % [facility] MCH (RBC) [Entitic mass] 31.1 pg 25.9 - 34.0 pg [facility] MCHC (RBC) [Mass/Vol] 35.1 g/dL 29.9 - 35.2 g/dL [facility] MCV (RBC) [Entitic vol] 88.6 fL 80.0 - 94.0 fL [facility] MONOCYTES ABSOLUTE AUTO 0.6 [facility] Monocytes/100 WBC (Bld) 8.8 % 1.7 - 12.0 % [facility] NEUTROPHILS ABSOLUTE AUTO 3.5 [facility] Neutrophils/100 WBC (Bld) 53 % 43.0 - 75.0 % [facility] Platelet mean volume (Bld) [Entitic vol] 8.9 fL Low 9.5 - 13.5 fL [facility]H EO # 0.1 [facility] TB PLT [address] [facility] RBC 5.27 [facility] WBC 6.5 [facility] Alkaline phosphatase [Enzyma tic activity/volume] in Serum or PlasmaOrdered By: Lily Hennessy on 06-14-2023 ALP [Catalytic activity/Vol] 34 U/L Normal 34-104 [facility] Comment on above: Performed By: #### B ILTD, ARGENIS, ALP, LIPASE #### [facility] [address] Amphetamine Screen Ql (U)Ord ered By: Bakari Akins on 06-14-2023 Amphetamines Ql (U) Negative Negative [facility] Amylase [Enzymatic activity/ volume] in Serum or PlasmaOrdered By: Lily Hennessy on 06-14-2023 Amylase [Catalytic activity/Vol] 24 U/L Low 29-103 [facility] Comment on above: Performed By: #### B ILTD, ARGENIS, ALP, LIPASE #### [facility] [address] [place] [id number] [facility] Barbiturates [Presence] in U rine by Screen methodOrdered By: Bakari Akins on 06-14-2023 Barbiturates Screen Ql (U) Negative Negative [facility] Benzodiazepines Screen Ql (U )Ordered By: Bakari Akins on 06-14-2023 Benzodiazepines Ql (U) Negative Negative [facility] Benzoylecgonine [Presence] i n Urine by Screen methodOrdered By: Bakari Aknis on 06-14-2023 Benzoylecgonine Screen Ql (U) Negative Negative [facility] Bilirubin, Total and Directo n 06-14-2023 Bilirubin,Indirect 1.0 mg/dL Normal [facility] Comment on above: Performed By: #### B ILTD, ARGENIS, ALP, LIPASE #### [facility] [address] Bilirubin.indirect [Mass/Vol] 0.20 mg/dL High 0.03-0.18 [facility] Comment on above: Performed By: #### B ILTD, ARGENIS, ALP, LIPASE #### [facility] [address] Bilirubin.direct [Mass/volum e] in Serum or PlasmaOrdered By: Lily Hennessy on 06-14-2023 Bilirubin.direct [Mass/Vol] 0.20 mg/dL 0.03-0.18 [facility] Bilirubin.total [Mass/volume ] in Serum or PlasmaOrdered By: Lily Hennessy on 06-14-2023 Bilirubin [Mass/Vol] 1.2 mg/dL High 0.3-1.[address] [facility] Comment on above: Performed By: #### B ILTD, ARGENIS, ALP, LIPASE #### [address] Cannabinoids [Presence] in U rine by Screen methodOrdered By: Bakari Akins on 06-14-2023 Cannabinoids Screen Ql (U) Negative Negative [facility] Comment on above: These are unconfirme d results and should not be used for legal purposes. Drug Cut-Off Concentration: AMPH 1000 ng/mL RAMYA 200 ng/mL CONNIE 200 ng/mL COCM 300 ng/mL OP 300 ng/mL PCP 25 ng/mL THC 20 ng/mL Drug Screen,Urineon 06-14-19 24 Amphetamine Screen,Urine Negative Normal Negative [facility] Comment on above: Performed By: #### U RDS ####[facility] [address] Barbiturate Screen,Urine Negative Normal Negative [facility] Comment on above: Performed By: #### U RDS ####[address] Benzodiazepines Screen,Urine Negative Normal Negative [facility] Comment on above: Performed By: #### U RDS ####[address] Cannabinoid Screen,Urine Negative Normal Negative [facility] Comment on above: Result Comment: Thes e are unconfirmed results and should not be used for legal purposes. Drug Cut-Off Concentration: AMPH 1000 ng/mL RAMYA 200 ng/mL CONNIE 200 ng/mL COCM 300 ng/mL OP 300 ng/mL PCP 25 ng/mL THC 20 ng/mL PERFORMED BY: [facility] [address] [facility] [place] [address] PATHOLOGIST ADULT PSYCHIATRIST GEE AYERS M.D. Performed By: #### U RDS ####[address] Cocaine Screen,Urine Negative Normal Negative [facility] Comment on above: Performed By: #### U RDS ####[address] Opiate Screen,Urine Negative Normal Negative [facility] Comment on above: Performed By: #### U RDS ####[address] Phencyclidine Screen,Urine Negative Normal Negative [facility] Comment on above: Performed By: #### U RDS ####[address] Doyle 06-14-2023 L Specimen: [id number] Received: 06/14/23 Status: HUGH Wero Num: [id number] Spec Type: Surgical Subm Dr: Lily Hennessy MD Tissues: A Gallbladder (GALLBLADDER) Procedures: HE/2, Gross/Micro L3 Age/ Patient Sex Location Account Attending Physician Jennifer Velásquez III 27/M [place] [id number] Lily Hennessy MD SPEC NUM: [id number] RECD: 06/14/23 STATUS: HUGH CONTEH NUM: [id number] REBEKA: 06/14/23- SUBM DR: Lily Hennessy MD ENTERED: 06/14/23-[address] [facility] [address]: MURIEL TYPE: Surgical DEPT: S ORDERED: HE/2, Gross/Micro L3 ORDERED: HE/2, Gross/Micro L3 Pathological Diagnosis Gallbladder, cholecystectomy: Chronic cholecystitis and cholelithiasis. Cholesterolosis polyps. Gross Description Received in formalin, labeled with the patient's name, date of and gallbladder is a previously disrupted gallbladder measuring 6.3 cm in length by 2.8 cm in average diameter. The clamped cystic duct (inked black) measures 0.2 cm in diameter. The serosal surface is bile-stained, smooth and glistening. The adjacent hepatic surface is bile-stained, roughened and inked blue. Opening into the specimen reveals velvety eric mucosa expelling viscous eric-green bile and containing a 0.4 cm eric-yellow bosselated stone obstructing the cystic duct. There are 5 yellow mucosal polyps present ranging from 0.3 to 0.1 cm with the closest coming to within 0.8 cm of the cystic duct. No discrete masses are present. The gallbladder wall measures 0.1 cm in maximum thickness. Police Records Clerk sections to include all the mucosal polyps are submitted in A1?A2. Clinical history: Cholelithiasis CPT Codes 79264 Specimen: [id number] Received: 06/14/23 Status: HUGH Conteh Num: [id number] Spec Type: Surgical Subm Dr: Lily Hennessy MD Tissues: A Gallbladder (GALLBLADDER) Procedures: HE/2, Gross/Micro L3 Patient: Jennifer Velásquez III [id number] (Continued) Signed (signature on file) Edilma Gomes MD 06/18/23 1535 Normal [facility] Lipase [Enzymatic activity/v olume] in Serum or PlasmaOrdered By: Lily Hennessy on 06-14-2023 Lipase [Catalytic activity/Vol] 22.0 U/L Normal 11.0-82.0 [facility] Comment on above: Result Comment: PERF ORMED BY: [place] [address] PATHOLOGIST ADULT PSYCHIATRIST GEE AYERS M.D. Performed By: #### B ILTD, ARGENIS, ALP, LIPASE #### [address] Opiates [Presence] in Urine by Screen methodOrdered By: Bakari Akins on 06-14-2023 Opiates Screen Ql (U) Negative Negative [facility] Phencyclidine Screen Ql (U)O rdered By: Bakari Akins on 06-14-2023 Phencyclidine Ql (U) Negative Negative [facility] Serum or plasma non-glucuron idated bilirubin measurement (mass/volume)Ordered By: Lily Hennessy on 06-14-2023 Bilirubin.indirect [Mass/Vol] 1.0 mg/dL [facility] US abdomen limitedon 024 US abdomen limited [facility] [address] [place] [address] Ultrasound Report Signed Patient: Jennifer Velásquez III MR#: [id number] : 1995 Acct:[id number] Age/Sex: 27 / M ADM Date: 05/22/23 Loc: Room: Type: [facility] Attending Dr: Shaikh Fallon OBRIEN Ordering Provider: Shaikh Fallon MD Date of Service: 05/22/23 US/US abdomen limited: R10.13 Copies to: Shaikh Fallon MD LIMITED ABDOMINAL ULTRASOUND: CLINICAL HISTORY: Epigastric and right upper quadrant pain with heartburn. COMPARISON: CT 08/02/2020 Assessment is slightly limited by body habitus, bowel gas and limited acoustic windows. The gallbladder is physiologically distended. There is a stone at the gallbladder neck measuring approximately 5 to 6 mm in size. There are also multiple echogenic foci attached to the gallbladder wall measuring up to 4 mm that may be polyps. No wall thickening or pericholecystic fluid is seen. No intra- or extrahepatic biliary dilatation is evident. The common duct measures 2 - 3 mm. The liver parenchyma shows increased echogenicity that may be fatty infiltration. The pancreas is obscured by bowel gas. There is appropriate hepatopetal flow within the main portal vein. Limited imaging of the right kidney shows no hydronephrosis or fluid within Santoro's pouch. US/US abdomen limited IMPRESSION: SLIGHT LIMITED STUDY. FATTY LIVER. CHOLELITHIASIS AND GALLBLADDER POLYPS. Impression dictated by: Jeanette Burton M.D.05/22/2023 9:57 AM Dictation Location: [place] [address] Tech[facility] Transcribed By: CUONG 05/22/23 0957 Dictated By: Jeanette Burton MD 05/22/23 0954 Signed By: 05/22/23 0957 Normal [facility] Blood lead detectionOrdered By: Shaikh Fallon on 05-18-2023 Lead Ql (Bld) <1.0 ug/dL 0.0-3.4 [facility] Comment on above: Testing performed by Inductively coupled plasma/MassSpectrometry.Analysis by inductively coupled plasma/massspectrometry (ICP/MS)This test was developed and its performance characteristicsdetermined by [employer]. It has not been cleared orapproved by the Food and Drug Administration. Environmental Exposure: WHO Recommendation <5.0 Occupational Exposure: OSHA Lead Std 40.0 [place]LLEY 30.0 Detection Limit = 1.0Performed at: [facility] [address] [id number] Director: Truman Mathews PhD, Phone: [phone] Lead, Adulton 05-18-2023 Lead-Adult Blood <1.0 Normal 0.0-3.4 [facility] Comment on above: Result Comment: Test ing performed by Inductively coupled plasma/Mass Spectrometry. Analysis by inductively coupled plasma/mass spectrometry (ICP/MS) This test was developed and its performance characteristics determined by [facility]. It has not been cleared or approved by the Food and Drug Administration. Environmental Exposure: WHO Recommendation <5.0 Occupational Exposure: OSHA Lead Std 40.0 SHELLEY 30.0 Detection Limit = 1.0 Performed at: [facility] [id number] [place], [place] [id number] Dice Maker: Truman Mathews PhD, Phone: [phone] PERFORMED BY: [facility] [address] [facility] [place] [address] PATHOLOGIST ADULT PSYCHIATRIST GEE AYERS M.D. Performed By: #### L EAD,ADULT ####[facility] ,#### TSH3 wRFLX ####[facility] Thyroid Stim Hormone w/Rflxo n 05-18-2023 Thyroid Stim Hormone w/Rflx 1.24 u[iU]/mL Normal 0.45-5.33 [facility] Comment on above: Result Comment: PERF ORMED BY: [place] [address] PATHOLOGIST ADULT PSYCHIATRIST GEE AYERS M.D. Performed By: #### L EAD,ADULT ####[facility] ,#### TSH3 wRFLX ####[facility] [address] Thyrotropin [Units/volume] i n Serum or PlasmaOrdered By: Shaikh Fallon on 05-18-2023 TSH Qn 1.24 m[IU]/L 0.45-5.33 [facility] Alanine aminotransferase [En zymatic activity/volume] in Serum or PlasmaOrdered By: Frederick Schwab on 01-29-2023 ALT [Catalytic activity/Vol] 25 U/L Normal 7-52 [facility] Comment on above: Performed By: #### M G, PHOS, CBC, CMP #### [facility] [address] [place] [address] [place] Albumin [Mass/volume] in Ser um or Plasma by Bromocresol green (BCG) dye binding methoOrdered By: Frederick Schwab on 01-29-2023 Albumin BCG dye [Mass/Vol] 4.7 g/dL 3.5-5.7 [facility] Alkaline phosphatase [Enzyma tic activity/volume] in Serum or PlasmaOrdered By: Frederick Schwab on 01-29-2023 ALP [Catalytic activity/Vol] 30 U/L Low 34-104 [facility] Comment on above: Performed By: #### M G, PHOS, CBC, CMP #### [facility] [address] [place] [address] [place] Aspartate aminotransferase [ Enzymatic activity/volume] in Serum or PlasmaOrdered By: Frederick Schwab on 01-29-2023 AST [Catalytic activity/Vol] 19 U/L Normal 13-39 [facility] Comment on above: Performed By: #### M G, PHOS, CBC, CMP #### [facility] [address] Automated basophil %Ordered By: Frederick Schwab on 01-29-2023 Basophils/100 WBC (Bld) 0.3 % Normal . [facility] Comment on above: Performed By: #### M G, PHOS, CBC, CMP #### [address] Automated basophil countOrde red By: Frederick Schwab on 01-29-2023 Basophils (Bld) [#/Vol] 0.0 10*3/uL Normal 0.0-0.2 [facility] Comment on above: Result Comment: PERF ORMED BY: [place] [address] PATHOLOGIST ADULT PSYCHIATRIST GEE AYERS M.D. Performed By: #### M G, PHOS, CBC, CMP #### [address] Automated blood monocyte cou ntOrdered By: Frederick Schwab on 01-29-2023 Monocytes (Bld) [#/Vol] 0.6 10*3/uL Normal 0.0-0.8 [facility] Comment on above: Performed By: #### M G, PHOS, CBC, CMP #### [address] Automated eosinophil %Ordere d By: Frederick Schwab on 01-29-2023 Eosinophils/100 WBC (Bld) 0.6 % Normal . [facility] Comment on above: Performed By: #### M G, PHOS, CBC, CMP #### [address] Automated eosinophil countOr dered By: Frederick Schwab on 01-29-2023 Eosinophils (Bld) [#/Vol] 0.0 10*3/uL Normal 0.0-0.45 [facility] Comment on above: Performed By: #### M G, PHOS, CBC, CMP #### [address] Automated monocyte %Ordered By: Frederick Schwab on 01-29-2023 Monocytes/100 WBC (Bld) 7.0 % Normal . [facility] Comment on above: Performed By: #### M G, PHOS, CBC, CMP #### [address] Automated neutrophil %Ordere d By: Frederick Zaheer on 01-29-2023 Neutrophils/100 WBC (Bld) 54.6 % Normal . [facility] Comment on above: Performed By: #### M G, PHOS, CBC, CMP #### [address] Bilirubin.total [Mass/volume ] in Serum or PlasmaOrdered By: Frederick Schwab on 01-29-2023 Bilirubin [Mass/Vol] 1.1 mg/dL High 0.3-1.[address] [facility] Comment on above: Performed By: #### M G, PHOS, CBC, CMP #### [address] Calcium [Mass/volume] in Ser um or PlasmaOrdered By: Frederick Schwab on 01-29-2023 Calcium [Mass/Vol] 9.4 mg/dL Normal 8.6-10.3 [facility] Comment on above: Performed By: #### M G, PHOS, CBC, CMP #### [address] Carbon dioxide, total [Moles /volume] in Serum or PlasmaOrdered By: Frederick Schwab on 01-29-2023 CO2 [Moles/Vol] 26.8 mmol/L Normal 21.0-31.0 [facility] Comment on above: Performed By: #### M G, PHOS, CBC, CMP #### [facility] [address] [place] [address] [place] Chloride [Moles/volume] in S aime or PlasmaOrdered By: Frederick Schwab on 01-29-2023 Chloride [Moles/Vol] 104 mmol/L Normal 98-[address] [facility] Comment on above: Performed By: #### M G, PHOS, CBC, CMP #### [address] Complete Blood Count Auto Di ffon 01-29-2023 Mean Corpuscular HGB Conc 35.0 g/dL Normal 32.5-35.6 [facility] Comment on above: Performed By: #### M G, PHOS, CBC, CMP #### [address] Monocytes/100 WBC (Bld) 15.20 % Normal 0.00-20.00 [facility] Comment on above: Performed By: #### M G, PHOS, CBC, CMP #### [address] NRBC% 0.1 /100{WBC} Normal 0-0.5 [facility] Comment on above: Performed By: #### M G, PHOS, CBC, CMP #### [address] Comprehensive Metabolic Pane doyle 01-29-2023 Albumin [Mass/Vol] 4.7 g/dL Normal 3.5-5.7 [facility] Comment on above: Performed By: #### M G, PHOS, CBC, CMP #### [address] Creatinine Clr Calc Pharmacy 158.72 Normal [facility] Comment on above: Performed By: #### M G, PHOS, CBC, CMP #### [address] GFR/1.73 sq M.predicted MDRD (S/P/Bld) [Vol rate/Area] mL/min/{1.73_m2} Normal [facility] Comment on above: Performed By: #### M G, PHOS, CBC, CMP #### [address] Creatinine [Mass/volume] in Serum or PlasmaOrdered By: Frederick Schwab on 01-29-2023 Creatinine [Mass/Vol] 0.88 mg/dL Normal 0.70-1.30 [facility] Comment on above: Performed By: #### M G, PHOS, CBC, CMP #### [facility] [address] Erythrocyte distribution wid th [Ratio] by Automated countOrdered By: Frederick Schwab on 01-29-2023 Erythrocyte distribution width (RBC) [Ratio] 12.6 % Normal 12.0-14.8 [facility] Comment on above: Performed By: #### M G, PHOS, CBC, CMP #### [address] Erythrocytes [#/volume] in B lood by Automated countOrdered By: Frederick Schwab on 01-29-2023 RBC (Bld) [#/Vol] 4.79 10*6/uL Normal 3.90-5.60 [facility] Comment on above: Performed By: #### M G, PHOS, CBC, CMP #### [address] Glucose [Mass/volume] in Ser um or PlasmaOrdered By: Frederick Schwab on 01-29-2023 Glucose [Mass/Vol] 86 mg/dL Normal 70-100 [facility] Comment on above: ADA recommended refe rence rangeRandom Glucose Reference Range is dependent on time and content of last meal. Glucose of more than 200 mg/dL in a nonstressed, ambulatory subject supports the diagnosis of Diabetes Mellitus. Result Comment: [place] om Glucose Reference Range is dependent on time and content of last meal. Glucose of more than 200 mg/dL in a nonstressed, ambulatory subject supports the diagnosis of Diabetes Mellitus. ADA recommended reference range Performed By: #### M G, PHOS, CBC, CMP #### [address] Hematocrit [Volume Fraction] of Blood by Automated countOrdered By: Frederick Schwab on 01-29-2023 Hematocrit (Bld) [Volume fraction] 42.6 % Normal 38.8-50.0 [facility] Comment on above: Performed By: #### M G, PHOS, CBC, CMP #### [address] Hemoglobin [Mass/volume] in BloodOrdered By: Frederick Schwab on 01-29-2023 Hemoglobin (Bld) [Mass/Vol] 14.9 g/dL Normal 13.0-17.0 [facility] Comment on above: Performed By: #### M G, PHOS, CBC, CMP #### [address] Leukocytes [#/volume] correc chang for nucleated erythrocytes in Blood by Automated counOrdered By: Frederick Schwab on 01-29-2023 WBC corrected for nucl RBC Auto (Bld) [#/Vol] 8.0 10*3/uL 4.1-10.5 [facility] Leukocytes [#/volume] in Blo od by Automated countOrdered By: Frederick Schwab on 01-29-2023 WBC (Bld) [#/Vol] 8.0 10*3/uL Normal 4.1-10.5 [facility] Comment on above: Performed By: #### M G, PHOS, CBC, CMP #### [place] [address] [place] Lymphocytes [#/volume] in Bl ood by Automated countOrdered By: Frederick Schwab on 01-29-2023 Lymphocytes (Bld) [#/Vol] 3.0 10*3/uL Normal 1.00-4.8 [facility] Comment on above: Performed By: #### M G, PHOS, CBC, CMP #### [place] [address] [place] Lymphocytes/100 leukocytes i n Blood by Automated countOrdered By: Frederick Schwab on 01-29-2023 Lymphocytes/100 WBC (Bld) 37.5 % Normal . [facility] Comment on above: Performed By: #### M G, PHOS, CBC, CMP #### [place] [address] [place] MCH [Entitic mass] by Automa chang countOrdered By: Frederick Schwab on 01-29-2023 MCH (RBC) [Entitic mass] 31.1 pg Normal 27.5-35.2 [facility] Comment on above: Performed By: #### M G, PHOS, CBC, CMP #### [facility] [address] [place] [address] MCHC Auto (RBC) [Mass/Vol]Or dered By: Frederick Schwab on 01-29-2023 MCHC (RBC) [Mass/Vol] 35.0 g/dL 32.5-35.6 [facility] MCV [Entitic volume] by Auto mated countOrdered By: Frederick Schwab on 01-29-2023 MCV (RBC) [Entitic vol] 89.0 fL Normal 83.5-101 [facility] Comment on above: Performed By: #### M G, PHOS, CBC, CMP #### [facility] [address] [place] [address] Magnesium [Mass/volume] in S aime or PlasmaOrdered By: Frederick Schwab on 01-29-2023 Magnesium [Mass/Vol] 2.1 mg/dL Normal 1.9-2.[address] [facility] Comment on above: Result Comment: PERF ORMED BY: [place] [address] PATHOLOGIST ADULT PSYCHIATRIST GEE AYERS M.D. Performed By: #### M G, PHOS, CBC, CMP ####[facility] [address] [place] [address] Monocyte distribution width [Entitic volume] in Blood by AutomatedOrdered By: Frederick Schwab on 01-29-2023 Monocyte distribution width Auto (Bld) [Entitic vol] 15.20 % 0.00-20.00 [facility] Neutrophils [#/volume] in Bl ood by Automated countOrdered By: Frederick Schwab on 01-29-2023 Neutrophils (Bld) [#/Vol] 4.4 10*3/uL Normal 1.8-7.7 [facility] Comment on above: Performed By: #### M G, PHOS, CBC, CMP #### [facility] [address] [place] [address] No Panel InformationOrdered By: Frederickangy Schwab on 01-29-2023 Estimated GFR (CKD-EPI) > 60.0 mL/Min [facility] Creatinine Clearance (Chem 158.72 [facility] Nucleated erythrocytes [Pres ence] in Blood by Automated countOrdered By: Frederick Schwab on 01-29-2023 Nucleated RBC Auto Ql (Bld) 0.1 /100{WBC} 0-0.5 [facility] Phosphate [Mass/volume] in S aime or PlasmaOrdered By: Frederick Schwab on 01-29-2023 Phosphate [Mass/Vol] 3.1 mg/dL Normal 2.5-4.[address] [facility] Comment on above: Performed By: #### M G, PHOS, CBC, CMP ####[facility] [address] Platelet mean volume [Entiti c volume] in Blood by Automated countOrdered By: Frederick Schwab on 01-29-2023 Platelet mean volume (Bld) [Entitic vol] 7.1 fL Normal 6.6-10.1 [facility] Comment on above: Performed By: #### M G, PHOS, CBC, CMP #### [facility] [address] [place] [address] [place] Platelets [#/volume] in Bloo d by Automated countOrdered By: Frederick Schwab on 01-29-2023 Platelets (Bld) [#/Vol] 287 10*3/uL Normal 150-450 [facility] Comment on above: Performed By: #### M G, PHOS, CBC, CMP #### [facility] [address] [place] [address] [place] Potassium [Moles/volume] in Serum or PlasmaOrdered By: Frederick Schwab on 01-29-2023 Potassium [Moles/Vol] 3.6 mmol/L Normal 3.5-5.1 [facility] Comment on above: Performed By: #### M G, PHOS, CBC, CMP #### [facility] [address] [place] [address] [place] Protein [Mass/volume] in Ser um or PlasmaOrdered By: Frederick Schwab on 01-29-2023 Protein [Mass/Vol] 7.1 g/dL Normal 6.4-8.9 [facility] Comment on above: Performed By: #### M Shaylee, PHOS, CBC, CMP #### [address] Serum globulin measurement b y calculation (mass/volume)Ordered By: Frederick Schwab on 01-29-2023 Globulin (S) [Mass/Vol] 2.4 g/dL Normal [facility] Comment on above: Performed By: #### M Shaylee, PHOS, CBC, CMP #### [address] Serum or plasma albumin/glob ulin mass ratioOrdered By: Frederick Schwab on 01-29-2023 Albumin/Globulin [Mass ratio] 2.0 {ratio} [facility] Comment on above: Performed By: #### M Shaylee, PHOS, CBC, CMP #### [address] Serum or plasma anion gap de terminationOrdered By: Frederick Schwab on 01-29-2023 Anion gap [Moles/Vol] 11.8 mmol/L Normal 6.0-15.0 [facility] Comment on above: Performed By: #### M Shaylee, PHOS, CBC, CMP #### [address] Sodium [Moles/volume] in Ser um or PlasmaOrdered By: Frederick Schwab on 01-29-2023 Sodium [Moles/Vol] 139 mmol/L Normal 136-145 [facility] Comment on above: Performed By: #### M Shaylee, PHOS, CBC, CMP #### [address] Urea nitrogen [Mass/volume] in Serum or PlasmaOrdered By: Frederick Schwab on 01-29-2023 Urea nitrogen [Mass/Vol] 9 mg/dL Normal 7-25 [facility] Comment on above: Performed By: #### M G, PHOS, CBC, CMP #### [facility] [address] [place] [id number] [facility] XR chest 2V*on 12-04-2022 XR chest 2V* [facility] [address] [place] [id number] XRay Report Signed Patient: Jennifer Velásquez III MR#: [id number] : 1995 Acct:[id number] Age/Sex: 27 / M ADM Date: 12/03/22 Loc: ER Room: Type: [facility] ER Attending Dr: Copies to: Terri Cuellar DO Ordering Provider: Terri Cuellar DO Date of Service: 12/03/22 XR/XR chest 2V*: Chest Pain Plain film chest 2 view HISTORY: Mid and RIGHT chest pain. COMPARISON: 09/08/12 FINDINGS: SUPPORT DEVICES: None POSTSURGICAL CHANGES: None HEART: Within normal limits PULMONARY ANASTASIIA: Within normal limits MEDIASTINUM: Unremarkable LUNGS AND PLEURA: No acute lung process, pleural effusion or pneumothorax identified. BONY STRUCTURES: Intact ADDITIONAL FINDINGS None XR/XR chest 2V* IMPRESSION: No acute process. Impression dictated by: Jean Kohler M.D.12/04/2022 8:36 AM Dictation Location: [place] [address] Transcribed By: [facility] 12/04/22 0836 Dictated By: Jean Kohler DO 12/04/22 0835 Signed By: 12/04/22 0836 Normal [facility] Activated partial thrombopla stin time (aPTT) in platelet poor plasma by coagulation aOrdered By: Terri Cuellar on 12-03-2022 aPTT Coag (PPP) [Time] 31.4 s 25.1-36.5 [facility] Comment on above: A hematocrit value g reater than 55% may lead to inaccurate results in coagulation testing. Patients having hematocrit values >55% require a special collection tube for coagulation studies. Please contact the laboratory at [phone] for redraw instructions. Automated basophil %Ordered By: Terri Cuellar on 12-03-2022 Basophils/100 WBC (Bld) 0.2 % Normal . [facility] Comment on above: Performed By: #### P TT, BMP, PT, HS TROP, CK, CBC, BNP ####[address] Automated basophil countOrde red By: Terri Cuellar on 12-03-2022 Basophils (Bld) [#/Vol] 0.0 10*3/uL Normal 0.0-0.2 [facility] Comment on above: Result Comment: PERF ORMED BY: [facility] [address] [facility] [place] [address] PATHOLOGIST ADULT PSYCHIATRIST GEE AYERS M.D. Performed By: #### P TT, BMP, PT, HS TROP, CK, CBC, BNP ####[address] Automated blood monocyte cou ntOrdered By: Terri Cuellar on 12-03-2022 Monocytes (Bld) [#/Vol] 0.6 10*3/uL Normal 0.0-0.8 [facility] Comment on above: Performed By: #### P TT, BMP, PT, HS TROP, CK, CBC, BNP ####[address] Automated eosinophil %Ordere d By: Terri Cuellar on 12-03-2022 Eosinophils/100 WBC (Bld) 1.4 % Normal . [facility] Comment on above: Performed By: #### P TT, BMP, PT, HS TROP, CK, CBC, BNP ####[address] Automated eosinophil countOr dered By: Terri Cuellar on 12-03-2022 Eosinophils (Bld) [#/Vol] 0.1 10*3/uL Normal 0.0-0.45 [facility] Comment on above: Performed By: #### P TT, BMP, PT, HS TROP, CK, CBC, BNP ####[address] Automated monocyte %Ordered By: Terri Cuellar on 12-03-2022 Monocytes/100 WBC (Bld) 7.9 % Normal . [facility] Comment on above: Performed By: #### P TT, BMP, PT, HS TROP, CK, CBC, BNP ####[place] [id number] [facility] Automated neutrophil %Ordere d By: Terri Cuellar on 12-03-2022 Neutrophils/100 WBC (Bld) 52.1 % Normal . [facility] Comment on above: Performed By: #### P TT, BMP, PT, HS TROP, CK, CBC, BNP ####[address] BNP ser/plasOrdered By: Shiva Cuellar on 12-03-2022 Natriuretic peptide B (Bld) [Mass/Vol] 9.0 pg/mL Normal 5-100 [facility] Comment on above: Result Comment: PERF ORMED BY: [facility] [address] [facility] [place] [address] PATHOLOGIST ADULT PSYCHIATRIST GEE AYERS M.D. Performed By: #### P TT, BMP, PT, HS TROP, CK, CBC, BNP ####[place] [id number] [facility] Basic Metabolic Panelon 11-06 Creatinine Clr Calc Pharmacy 148.31 Normal [facility] Comment on above: Result Comment: PERF ORMED BY: [facility] [address] [place] [address] PATHOLOGIST ADULT PSYCHIATRIST GEE AYERS M.D. Performed By: #### P TT, BMP, PT, HS TROP, CK, CBC, BNP ####[place] [id number] [facility] GFR/1.73 sq M.predicted MDRD (S/P/Bld) [Vol rate/Area] mL/min/{1.73_m2} Normal [facility] Comment on above: Performed By: #### P TT, BMP, PT, HS TROP, CK, CBC, BNP ####[address] Calcium [Mass/volume] in Ser um or PlasmaOrdered By: Terri Alisa on 12-03-2022 Calcium [Mass/Vol] 9.4 mg/dL Normal 8.6-10.3 [facility] Comment on above: Performed By: #### P TT, BMP, PT, HS TROP, CK, CBC, BNP ####[address] Carbon dioxide, total [Moles /volume] in Serum or PlasmaOrdered By: Terrikarla Cuellar on 12-03-2022 CO2 [Moles/Vol] 26.5 mmol/L Normal 21.0-31.0 [facility] Comment on above: Performed By: #### P TT, BMP, PT, HS TROP, CK, CBC, BNP ####[address] Chloride [Moles/volume] in S aime or PlasmaOrdered By: Terri Cuellar on 12-03-2022 Chloride [Moles/Vol] 107 mmol/L Normal 98-[address] [facility] Comment on above: Performed By: #### P TT, BMP, PT, HS TROP, CK, CBC, BNP ####[address] Complete Blood Count Auto Di ffon 12-03-2022 Mean Corpuscular HGB Conc 34.9 g/dL Normal 32.5-35.6 [facility] Comment on above: Performed By: #### P TT, BMP, PT, HS TROP, CK, CBC, BNP ####[address] Monocytes/100 WBC (Bld) 16.70 % Normal 0.00-20.00 [facility] Comment on above: Performed By: #### P TT, BMP, PT, HS TROP, CK, CBC, BNP ####[address] NRBC% 0.1 /100{WBC} Normal 0-0.5 [facility] Comment on above: Performed By: #### P TT, BMP, PT, HS TROP, CK, CBC, BNP ####[facility] [address] [place] [id number] [facility] Creatine kinase [Enzymatic a ctivity/volume] in Serum or PlasmaOrdered By: Terri Cuellar on 12-03-2022 CK [Catalytic activity/Vol] 75 U/L Normal 30-223 [facility] Comment on above: Performed By: #### P TT, BMP, PT, HS TROP, CK, CBC, BNP ####[place] [id number] [address] Creatinine [Mass/volume] in Serum or PlasmaOrdered By: Terri Cuellar on 12-03-2022 Creatinine [Mass/Vol] 0.96 mg/dL Normal 0.70-1.30 [facility] [facility] Comment on above: Performed By: #### P TT, BMP, PT, HS TROP, CK, CBC, BNP ####[place] [id number] [place] [id number] [facility] ECG 12 lead ECGon 12-03-2022 ECG 12 lead ECG [facility] [place] [address] Electrocardiograph Report Signed Patient: Jennifer Velásquez III MR#: [id number] : 1995 Acct:[id number] Age/Sex: 27 / M ADM Date: 12/03/22 Loc: ER Room: Type: [facility] ER Attending Dr: Ordering Provider: Terri Cuellar DO Date of Service: 12/03/22 ECG/ECG 12 lead ECG: Chest Pain Copies to: Test Reason : Blood Pressure : 154/085 mmHG Vent. Rate : 070 BPM Atrial Rate : 070 BPM P-R Int : 144 ms QRS Dur : 088 ms QT Int : 374 ms P-R-T Axes : 034 026 031 degrees QTc Int : 403 ms Normal sinus rhythm with sinus arrhythmia Normal ECG When compared with ECG of 09-MAY-2022 09:37, No significant change was found Confirmed by TERRI CUELLAR DO ([id number]) on 12/03/2022 11:48:32 PM Referred By: Electronically Signed By:TERRI CUELLAR DO Transcribed By: MUS Signed By Terri Cuellar DO 2348 Normal [facility] Erythrocyte distribution wid th [Ratio] by Automated countOrdered By: Terri Alisa on 12-03-2022 Erythrocyte distribution width (RBC) [Ratio] 12.9 % Normal 12.0-14.8 [facility] Comment on above: Performed By: #### P TT, BMP, PT, HS TROP, CK, CBC, BNP ####[place] [id number] [place] [id number] [facility] Erythrocytes [#/volume] in B lood by Automated countOrdered By: Terri Cuellar on 12-03-2022 RBC (Bld) [#/Vol] 4.65 10*6/uL Normal 3.90-5.60 [facility] Comment on above: Performed By: #### P TT, BMP, PT, HS TROP, CK, CBC, BNP ####[place] [id number] [facility] Glucose [Mass/volume] in Ser um or PlasmaOrdered By: Terri Cuellar on 12-03-2022 Glucose [Mass/Vol] 101 mg/dL High 70-100 [facility] Comment on above: ADA recommended refe rence rangeRandom Glucose Reference Range is dependent on time and content of last meal. Glucose of more than 200 mg/dL in a nonstressed, ambulatory subject supports the diagnosis of Diabetes Mellitus. Result Comment: [place] om Glucose Reference Range is dependent on time and content of last meal. Glucose of more than 200 mg/dL in a nonstressed, ambulatory subject supports the diagnosis of Diabetes Mellitus. ADA recommended reference range Performed By: #### P TT, BMP, PT, HS TROP, CK, CBC, BNP ####[address] [address] [facility] Hematocrit [Volume Fraction] of Blood by Automated countOrdered By: Terri Cuellar on 12-03-2022 Hematocrit (Bld) [Volume fraction] 41.6 % Normal 38.8-50.0 [facility] Comment on above: Performed By: #### P TT, BMP, PT, HS TROP, CK, CBC, BNP ####[place] [id number] [place] Hemoglobin [Mass/volume] in BloodOrdered By: Terri Cuellar on 12-03-2022 Hemoglobin (Bld) [Mass/Vol] 14.5 g/dL Normal 13.0-17.0 [facility] Comment on above: Performed By: #### P TT, BMP, PT, HS TROP, CK, CBC, BNP ####[facility] [place] [id number] [facility] INR in Platelet poor plasma by Coagulation assayOrdered By: Terri Cuellar on 12-03-2022 INR Coag (PPP) [Relative time] 1.0 {INR} Normal [facility] Comment on above: INR Therapeutic Rang e A) Pre- and Peroperative OAT started two weeks before surgery. NOT HIP SURGERY: 1.5 - 2.5 HIP SURGERY: 2 - 3B) Primary and secondary prevention of venous THROMBOSIS: 2 - 3C) Active venous thrombosis, pulmonary embolismand prevention of recurrent venous thrombosis: 2 - 3D) Prevention of arterial thromboembolismincluding patients with mechanical heart valves: 3 - 4.5 Result Comment: INR Therapeutic Range A) Pre- and Peroperative OAT started two weeks before surgery. NOT HIP SURGERY: 1.5 - 2.5 HIP SURGERY: 2 - 3 B) Primary and secondary prevention of venous THROMBOSIS: 2 - 3 C) Active venous thrombosis, pulmonary embolism and prevention of recurrent venous thrombosis: 2 - 3 D) Prevention of arterial thromboembolism including patients with mechanical heart valves: 3 - 4.5 Performed By: #### P TT, BMP, PT, HS TROP, CK, CBC, BNP ####[facility] [address] Leukocytes [#/volume] correc chang for nucleated erythrocytes in Blood by Automated counOrdered By: Terri Cuellar on 12-03-2022 WBC corrected for nucl RBC Auto (Bld) [#/Vol] 7.8 10*3/uL 4.1-10.5 [facility] Leukocytes [#/volume] in Blo od by Automated countOrdered By: Terri Cuellar on 12-03-2022 WBC (Bld) [#/Vol] 7.8 10*3/uL Normal 4.1-10.5 [facility] Comment on above: Performed By: #### P TT, BMP, PT, HS TROP, CK, CBC, BNP ####[address] Lymphocytes [#/volume] in Bl ood by Automated countOrdered By: Terri Cuellar on 12-03-2022 Lymphocytes (Bld) [#/Vol] 3.0 10*3/uL Normal 1.00-4.8 [facility] Comment on above: Performed By: #### P TT, BMP, PT, HS TROP, CK, CBC, BNP ####[address] Lymphocytes/100 leukocytes i n Blood by Automated countOrdered By: Terri Cuellar on 12-03-2022 Lymphocytes/100 WBC (Bld) 38.4 % Normal . [facility] Comment on above: Performed By: #### P TT, BMP, PT, HS TROP, CK, CBC, BNP ####[address] MCH [Entitic mass] by Automa chang countOrdered By: Terri Cuellar on 12-03-2022 MCH (RBC) [Entitic mass] 31.3 pg Normal 27.5-35.2 [facility] Comment on above: Performed By: #### P TT, BMP, PT, HS TROP, CK, CBC, BNP ####[address] MCHC Auto (RBC) [Mass/Vol]Or dered By: Terri Cuellar on 12-03-2022 MCHC (RBC) [Mass/Vol] 34.9 g/dL 32.5-35.6 [facility] MCV [Entitic volume] by Auto mated countOrdered By: Terri Cuellar on 12-03-2022 MCV (RBC) [Entitic vol] 89.6 fL Normal 83.5-101 [facility] Comment on above: Performed By: #### P TT, BMP, PT, HS TROP, CK, CBC, BNP ####[address] Monocyte distribution width [Entitic volume] in Blood by AutomatedOrdered By: Terri Salcidolobo on 12-03-2022 Monocyte distribution width Auto (Bld) [Entitic vol] 16.70 % 0.00-20.00 [facility] Neutrophils [#/volume] in Bl ood by Automated countOrdered By: Terri Alisa on 12-03-2022 Neutrophils (Bld) [#/Vol] 4.0 10*3/uL Normal 1.8-7.7 [facility] Comment on above: Performed By: #### P TT, BMP, PT, HS TROP, CK, CBC, BNP ####[facility] [address] [place] [address] [facility] No Panel InformationOrdered By: Terri Cuellar on 12-03-2022 Estimated GFR (CKD-EPI) > 60.0 mL/Min [facility] Creatinine Clearance (Chem 148.31 [facility] Nucleated erythrocytes [Pres ence] in Blood by Automated countOrdered By: Terri Cuellar on 12-03-2022 Nucleated RBC Auto Ql (Bld) 0.1 /100{WBC} 0-0.5 [facility] Partial Thromboplastin Timeo n 12-03-2022 aPTT Coag (Bld) [Time] 31.4 s Normal 25.1-36.5 [facility] Comment on above: Result Comment: A he matocrit value greater than 55% may lead to inaccurate results in coagulation testing. Patients having hematocrit values >55% require a special collection tube for coagulation studies. Please contact the laboratory at [phone] for redraw instructions. PERFORMED BY: [facility] [address] [place] [id number] PATHOLOGIST ADULT PSYCHIATRIST GEE AYERS M.D. Performed By: #### P TT, BMP, PT, HS TROP, CK, CBC, BNP ####[facility] [address] [place] [id number] [facility] Platelet mean volume [Entiti c volume] in Blood by Automated countOrdered By: Terri Cuellar on 12-03-2022 Platelet mean volume (Bld) [Entitic vol] 7.4 fL Normal 6.6-10.1 [facility] Comment on above: Performed By: #### P TT, BMP, PT, HS TROP, CK, CBC, BNP ####[place] [id number] Platelets [#/volume] in Bloo d by Automated countOrdered By: Terri Cuellar on 12-03-2022 Platelets (Bld) [#/Vol] 298 10*3/uL Normal 150-450 [facility] Comment on above: Performed By: #### P TT, BMP, PT, HS TROP, CK, CBC, BNP ####[place] [address] Potassium [Moles/volume] in Serum or PlasmaOrdered By: Terri Cuellar on 12-03-2022 Potassium [Moles/Vol] 3.9 mmol/L Normal 3.5-5.1 [facility] Comment on above: Performed By: #### P TT, BMP, PT, HS TROP, CK, CBC, BNP ####[place] [id number] [facility] Prothrombin time (PT)Ordered By: Terri Cuellar on 12-03-2022 PT Coag (PPP) [Time] 11.6 s Normal 9.0-12.[address] [facility] Comment on above: A hematocrit value g reater than 55% may lead to inaccurate results in coagulation testing. Patients having hematocrit values >55% require a special collection tube for coagulation studies. Please contact the laboratory at [phone] for redraw instructions. Result Comment: A he matocrit value greater than 55% may lead to inaccurate results in coagulation testing. Patients having hematocrit values >55% require a special collection tube for coagulation studies. Please contact the laboratory at [phone] for redraw instructions. Performed By: #### P TT, BMP, PT, HS TROP, CK, CBC, BNP ####[place] [address] [facility] Serum or plasma anion gap de terminationOrdered By: Terri Cuellar on 12-03-2022 Anion gap [Moles/Vol] 10.4 mmol/L Normal 6.0-15.0 [facility] Comment on above: Performed By: #### P TT, BMP, PT, HS TROP, CK, CBC, BNP ####[place] [id number] [place] [id number] [facility] Sodium [Moles/volume] in Ser um or PlasmaOrdered By: Terri Cuellar on 12-03-2022 Sodium [Moles/Vol] 140 mmol/L Normal 136-145 [facility] Comment on above: Performed By: #### P TT, BMP, PT, HS TROP, CK, CBC, BNP ####[place] [address] [place] [id number] [facility] Troponin I High Sensitivityo n 12-03-2022 Troponin I High Sensitivity < 2.3 Normal 0.0-20.0 [facility] Comment on above: Result Comment: PERF ORMED BY: [facility] [address] [facility] [place] [address] PATHOLOGIST ADULT PSYCHIATRIST GEE AYERS M.D. Performed By: #### P TT, BMP, PT, HS TROP, CK, CBC, BNP ####[place] [id number] [facility] Troponin I.cardiac [Mass/vol ume] in Serum or Plasma by Detection limit <= 0.01 ng/Ordered By: Terri Cuellar on 12-03-2022 Troponin I.cardiac DL <= 0.01 ng/mL [Mass/Vol] < 2.3 pg/mL 0.0-20.0 [facility] Urea nitrogen [Mass/volume] in Serum or PlasmaOrdered By: Terri Cuellar on 12-03-2022 Urea nitrogen [Mass/Vol] 14 mg/dL Normal 7-25 [facility] Comment on above: Performed By: #### P TT, BMP, PT, HS TROP, CK, CBC, BNP ####[place] [address] [place] [id number] [facility] Physician Referralon 023 Physician Referral [id number]:127 Normal [facility] Formson 08-22-2022 Forms [id number]:127 Normal [facility] Ambulatory Visit Summaryon 0 08-21-2022 Ambulatory Visit Summary JENNIFER VELÁSQUEZ III :1995 Visit Date:08/21/2022 Ambulatory Visit Instructions Your Diagnosis Encounter for vasectomy counseling Former smoker Your Care Team Attending Physician - CHEO OBRIEN, Terri Nascimento Primary Care Physician - SHAIKH LEHMAN This Is Your Medications List cephalexin (Keflex 500 mg Cap) Contact prescribing physician if questions or concerns busPIRone (busPIRone 7.5 mg oral tablet) hydrOXYzine (Vistaril 25 mg Cap) mirtazapine (mirtazapine 15 mg Tab) prazosin (prazosin 2 mg oral capsule) Procedures Performed Appendectomy, Extraction of wisdom tooth, Mass removed from nasal cavity. Discharge Vitals Heart Rate (Peripheral) 95 Respiratory Rate 16 Blood Pressure 130/86 Height 178 cm Height 70 in Weight 109 kg Weight 239.8 lb BMI 34.4 What to do next You Need to Schedule the Following Appointments Follow Up with CHEO OBRIEN, Terri Nascimento, VICTOR MANUEL When: Comments: schedule vasectomy Where: [facility] [address], [place] [phone] Medications What How Much When Instructions New cephalexin (Keflex 500 mg Cap) 1 Capsules By Mouth 2 times a day Duration: 5 Days start with first meal after procedure Pickup at [facility] [id number] Unchanged busPIRone (busPIRone 7.5 mg oral tablet) By Mouth 2 times a day Contact prescribing physician if questions or concerns Unchanged hydrOXYzine (Vistaril 25 mg Cap) By Mouth 4 times a day Contact prescribing physician if questions or concerns Unchanged mirtazapine (mirtazapine 15 mg Tab) Contact prescribing physician if questions or concerns Unchanged prazosin (prazosin 2 mg oral capsule) Contact prescribing physician if questions or concerns Pharmacy Information [facility] [id number]: [address] [place], [place] [id number] [phone] Allergies Hycodan (Hives) Problems Ongoing - Any problem that you are currently receiving treatment for. Encounter for vasectomy counseling Former smoker Historical - Any problem that you are no longer receiving treatment for. Vasectomy evaluation Education Materials Contraception Choices Contraception refers to things you do or use to prevent . It is also called control. There are several methods of control. Talk to your doctor about the best method for you. Hormonal control This kind of control uses hormones. Here are some types of hormonal control: ? A tube that is put under the skin of your arm (implant). The tube can stay in for up to 3 years. ? Shots you get every 3 months. ? Pills you take every day. ? A patch you change 1 time each week for 3 weeks. After that, the patch is taken off for 1 week. ? A ring you put in the vagina. The ring is left in for 3 weeks. Then it is taken out of the vagina for 1 week. Then a new ring is put in. ? Pills you take after unprotected sex. These are called emergency control pills. Barrier control Here are some types of barrier control: ? A thin covering that is put on the penis before sex (male condom). The covering is thrown away after sex. ? A soft, loose covering that is put in the vagina before sex (female condom). The covering is thrown away after sex. ? A rubber bowl that sits over the cervix (diaphragm). The bowl must be made for you. The bowl is put into the vagina before sex. The bowl is left in for 6?8 hours after sex. It is taken out within 24 hours. ? A small, soft cup that fits over the cervix (cervical cap). The cup must be made for you. The cup should be left in for 6?8 hours after sex. It is taken out within 48 hours. ? A sponge that is put into the vagina before sex. It must be left in for at least 6 hours after sex. It must be taken out within 30 hours and thrown away. ? A chemical that kills or stops sperm from getting into the womb (uterus). This chemical is called a spermicide. It may be a pill, cream, jelly, or foam to put in the vagina. The chemical should be used at least 10?15 minutes before sex. IUD control IUD means intrauterine device. It is put inside the womb. There are two kinds: ? Hormone IUD. This kind can stay in the womb for 3?5 years. ? Copper IUD. This kind can stay in the womb for 10 years. Permanent control Here are some types of permanent control: ? Surgery to block the fallopian tubes. ? Having an insert put into each fallopian tube. This method takes 3 months to work. Other forms of control must be used for 3 months. ? Surgery to tie off the tubes that carry sperm in men (vasectomy). This method takes 3 months to work. Other forms of control must be used for 3 months. Natural planning control Here are some types of natural planning control: ? Not having sex on the days the woman could get . ? Using a calendar: ? To k (more content not included)... Normal [facility] Ambulatory Visit Summary JENNIFER VELÁSQUEZ III :1995 Visit Date:08/21/2022 Ambulatory Visit Instructions Your Diagnosis Encounter for vasectomy counseling Former smoker Your Care Team Attending Physician - Terri PAZ MD Primary Care Physician - SHAIKH LEHMAN This Is Your Medications List Contact prescribing physician if questions or concerns busPIRone (busPIRone 7.5 mg oral tablet) hydrOXYzine (Vistaril 25 mg Cap) mirtazapine (mirtazapine 15 mg Tab) prazosin (prazosin 2 mg oral capsule) Procedures Performed Appendectomy, Extraction of wisdom tooth, Mass removed from nasal cavity. Discharge Vitals Heart Rate (Peripheral) 95 Respiratory Rate 16 Blood Pressure 130/86 Height 178 cm Height 70 in Weight 109 kg Weight 239.8 lb BMI 34.4 What to do next You Need to Schedule the Following Appointments Follow Up with Terri PAZ MD, VICTOR MANUEL When: Comments: schedule vasectomy Where: [facility] [address] , [place] [phone] Medications What How Much When Instructions Unchanged busPIRone (busPIRone 7.5 mg oral tablet) 2 times a day Contact prescribing physician if questions or concerns Unchanged hydrOXYzine (Vistaril 25 mg Cap) 4 times a day Contact prescribing physician if questions or concerns Unchanged mirtazapine (mirtazapine 15 mg Tab) Contact prescribing physician if questions or concerns Unchanged prazosin (prazosin 2 mg oral capsule) Contact prescribing physician if questions or concerns Allergies Hycodan (Hives) Problems Ongoing - Any problem that you are currently receiving treatment for. Encounter for vasectomy counseling Former smoker Historical - Any problem that you are no longer receiving treatment for. Vasectomy evaluation Education Materials Contraception Choices Contraception refers to things you do or use to prevent . It is also called control. There are several methods of control. Talk to your doctor about the best method for you. Hormonal control This kind of control uses hormones. Here are some types of hormonal control: ? A tube that is put under the skin of your arm (implant). The tube can stay in for up to 3 years. ? Shots you get every 3 months. ? Pills you take every day. ? A patch you change 1 time each week for 3 weeks. After that, the patch is taken off for 1 week. ? A ring you put in the vagina. The ring is left in for 3 weeks. Then it is taken out of the vagina for 1 week. Then a new ring is put in. ? Pills you take after unprotected sex. These are called emergency control pills. Barrier control Here are some types of barrier control: ? A thin covering that is put on the penis before sex (male condom). The covering is thrown away after sex. ? A soft, loose covering that is put in the vagina before sex (female condom). The covering is thrown away after sex. ? A rubber bowl that sits over the cervix (diaphragm). The bowl must be made for you. The bowl is put into the vagina before sex. The bowl is left in for 6?8 hours after sex. It is taken out within 24 hours. ? A small, soft cup that fits over the cervix (cervical cap). The cup must be made for you. The cup should be left in for 6?8 hours after sex. It is taken out within 48 hours. ? A sponge that is put into the vagina before sex. It must be left in for at least 6 hours after sex. It must be taken out within 30 hours and thrown away. ? A chemical that kills or stops sperm from getting into the womb (uterus). This chemical is called a spermicide. It may be a pill, cream, jelly, or foam to put in the vagina. The chemical should be used at least 10?15 minutes before sex. IUD control IUD means intrauterine device. It is put inside the womb. There are two kinds: ? Hormone IUD. This kind can stay in the womb for 3?5 years. ? Copper IUD. This kind can stay in the womb for 10 years. Permanent control Here are some types of permanent control: ? Surgery to block the fallopian tubes. ? Having an insert put into each fallopian tube. This method takes 3 months to work. Other forms of control must be used for 3 months. ? Surgery to tie off the tubes that carry sperm in men (vasectomy). This method takes 3 months to work. Other forms of control must be used for 3 months. Natural planning control Here are some types of natural planning control: ? Not having sex on the days the woman could get . ? Using a calendar: ? To keep track of the length of each menstrual cycle. ? To find out what days can happen. ? To plan to not have sex on days when can happen. ? Watching for signs of ovulation and not having sex during this time. One way the woman can check for ovulation is to check her temperature. ? Waiti (more content not included)... Normal [facility] Patient Educationon 08-22-19 Patient Education Obstetrics and Gynec ology Contraception Choices Contraception refers to things you do or use to prevent . It is also called control. There are several methods of control. Talk to your doctor about the best method for you. Hormonal control This kind of control uses hormones. Here are some types of hormonal control: ? A tube that is put under the skin of your arm (implant). The tube can stay in for up to 3 years. ? Shots you get every 3 months. ? Pills you take every day. ? A patch you change 1 time each week for 3 weeks. After that, the patch is taken off for 1 week. ? A ring you put in the vagina. The ring is left in for 3 weeks. Then it is taken out of the vagina for 1 week. Then a new ring is put in. ? Pills you take after unprotected sex. These are called emergency control pills. Barrier control Here are some types of barrier control: ? A thin covering that is put on the penis before sex (male condom). The covering is thrown away after sex. ? A soft, loose covering that is put in the vagina before sex (female condom). The covering is thrown away after sex. ? A rubber bowl that sits over the cervix (diaphragm). The bowl must be made for you. The bowl is put into the vagina before sex. The bowl is left in for 6?8 hours after sex. It is taken out within 24 hours. ? A small, soft cup that fits over the cervix (cervical cap). The cup must be made for you. The cup should be left in for 6?8 hours after sex. It is taken out within 48 hours. ? A sponge that is put into the vagina before sex. It must be left in for at least 6 hours after sex. It must be taken out within 30 hours and thrown away. ? A chemical that kills or stops sperm from getting into the womb (uterus). This chemical is called a spermicide. It may be a pill, cream, jelly, or foam to put in the vagina. The chemical should be used at least 10?15 minutes before sex. IUD control IUD means intrauterine device. It is put inside the womb. There are two kinds: ? Hormone IUD. This kind can stay in the womb for 3?5 years. ? Copper IUD. This kind can stay in the womb for 10 years. Permanent control Here are some types of permanent control: ? Surgery to block the fallopian tubes. ? Having an insert put into each fallopian tube. This method takes 3 months to work. Other forms of control must be used for 3 months. ? Surgery to tie off the tubes that carry sperm in men (vasectomy). This method takes 3 months to work. Other forms of control must be used for 3 months. Natural planning control Here are some types of natural planning control: ? Not having sex on the days the woman could get . ? Using a calendar: ? To keep track of the length of each menstrual cycle. ? To find out what days can happen. ? To plan to not have sex on days when can happen. ? Watching for signs of ovulation and not having sex during this time. One way the woman can check for ovulation is to check her temperature. ? Waiting to have sex until after ovulation. Where to find more information ? Centers for Disease Control and Prevention: www.cdc.gov Summary ? Contraception, also called control, refers to things you do or use to prevent . ? Hormonal methods of control include implants, injections, pills, patches, vaginal rings, and emergency control pills. ? Barrier methods of control can include male condoms, female condoms, diaphragms, cervical caps, sponges, and spermicides. ? There are two types of IUD (intrauterine device) control. An IUD can be put in a woman's womb to prevent for several years. ? Permanent control can be done through a procedure for males, females, or both. Natural planning means not having sex when the woman could get . This information is not intended to replace advice given to you by your health care provider. Make sure you discuss any questions you have with your health care provider. Document Revised: 06/28/2020 Document Reviewed: 06/28/2020 [email or web address] Patient Education ? 2022 [employer]. Urology Vasectomy Vasectomy is a procedure in which the vas deferens is cut and then tied or burned (cauterized). The vas deferens is a tube that carries sperm from the testicle to the part of the body that drains urine from the bladder (urethra). This procedure blocks sperm from going through the vas deferens and penis during ejaculation. This ensures that sperm does not go into the vagina during sex. Vasectomy does not affect sexual desire or performance and does not prevent sexually transmitted infections. Vasectomy is considered a permanent and very effective form of control (contraception). The decision to have a vasectomy should not be made during a stressful time, such as after the loss of a or a d (more content not included)... [facility] Office/Clinic Noteon 08-21-2022 Urology Office/Clinic Note Chief Complaint vasectomy consult HPI Staff New pt vasectomy consult. Last seen by Dr. Sharp 11/29/2018 for a vasectomy consult. Pt has no children and desires sterilization. Dysuria: no Incomplete bladder emptying: no Hematuria: no Frequency: no Urgency: no Nocturia: no Stream: good strong Leaking: no Post void dripping: no Wearing pads/ Depends: no Urge incontinence: no Stress incontinence: no Incontinence without Sensory Awareness: no Abdominal pain: no Flank pain: no Sexual complaints: no History of Present Illness Tests reviewed: none I have reviewed the previous health record information and history for this patient from Dr. Sharp. I have reviewed and verified the staff HPI to be accurate for this encounter. There have been no associated fever, chills, flank pain, or blood in the urine. Denies any urinary infections since last encounter. Review of Systems PHQ Score Initial Depression Screen Score: 0 ROS - Provider Constitutional: denies weight loss, denies hot flashes. Eyes: denies eye problems. Gastrointestinal: denies nausea, denies vomiting. Cardiovascular: denies chest pain or angina. Integumentary: no dryness Musculoskeletal: denies musculoskeletal symptoms. ENMT: denies otolaryngeal symptoms. Respiratory: no shortness of breath. Heme/Lymph: denies easy bleeding tendency, denies easy bruising tendency. Psychiatric: no confusion, no anxiety. Genitourinary: See HPI. Physical Exam Vitals & Measurements HR: 95(Peripheral) RR: 16 BP: 130/86 HT: 70 in HT: 178 cm WT: 109 kg WT: 239.8 lb BMI: 34.4 General Appearance: alert, no distress, well nourished, well developed male. Head: normocephalic . Eyes: normal orbit and globe. ENMT: normal examination of external ears. Chest: Lungs CTA, respirations non labored. Cardiovascular: regular rate and rhythm. Abdomen: soft, non distended, no tenderness, no mass or organomegaly, no hernia. Genitourinary: normal scrotum, normal testes, normal urethra, normal epididymis, normal vas deferens/spermatic cord. Flank Pain: none. Bladder: nonpalpable. Penis: normal shaft, normal glans. Lymph Nodes: unremarkable palpation of the cervical area. Skin: warm, dry, no bruising. Psychiatric: cooperative, affect appropriate for age, normal judgement, euthymic mood. Assessment/Plan 1. Encounter for vasectomy counseling (Z30.09: Encounter for other general counseling and advice on contraception) Pt was last seen by Dr. Sharp in 2019 for vasectomy counseling. Pt does not have any children and desires sterilization. No sample provided for UA today. Will schedule Vasectomy. The procedural risks, benefits, details, and treatment alternatives of sterilization have been discussed with the patient today. He understands this procedure is considered permanent, even though vasectomy reversals can be performed. There is no guarantee of successful reversal resulting in , however. Risks discussed include bleeding, infection, failure with in about 1:2500, post-vasectomy syndrome (chronic pain in the testicle or scrotum), possible association with prostate cancer development in the future, and erection problems, among others. Despite these risks, he wishes to proceed. He also understands that he is not considered sterile until a negative semen sample has been received after about 2-3 months after the vasectomy. Full informed consent has been obtained. Will order Local anesthesia. 2. Former smoker (Z87.891: Personal history of nicotine dependence) Quit in 2012. Pt understands increased risk for urothelial cancer. Follow-up With When Contact Information CHEO OBRIEN, Terri Nascimento, [facility] [address], [place] [address]- [phone] Additional Instructions: schedule vasectomy Patient Education Contraception Choices, [id number] Vasectomy I, Jelly Syed, personally scribed for Dr. Paz on 08/21/2022 14:16:55. . Documentation recorded by the scribe, Jelly Syed, accurately reflects the services(s) I performed and decisions made by me. Authenticated by Dr. Paz on 08/21/2022 14:18:24. Problem List/Past Medical History Ongoing Encounter for vasectomy counseling Former smoker Historical Vasectomy evaluation Procedure/Surgical History Appendectomy, Extraction of wisdom tooth, Mass removed from nasal cavity. Medications busPIRone 7.5 mg oral tablet, Oral, BID mirtazapine 15 mg Tab prazosin 2 mg oral capsule Vistaril 25 mg Cap, Oral, QID Allergies Hycodan (Hives) Social History Tobacco Former smoker, quit more than 30 days ago Tobacco Use:., 11/29/2018 [facility] Comment on above: Result Comment: Elec tronically Signed By: Terri PAZ MD\.br\Date and Time Signed: 08/21/22 14:18 EDT\.br\Electronically Co-Signed By: Jelly Syed\Date and Time Co-Signed: 08/21/22 14:17 EDT XR KNEE KAREN 4V or >on 2022 XR KNEE KAREN 4V or > EXAM: XR KNEE KAREN 4V or > HISTORY: The patient is a 26-year-old male with Pain in left knee COMPARISON: None. FINDINGS: The left knee and right knee are both radiographically negative with no evidence of fracture, dislocation, joint space narrowing, osteophytes, or other osseous or articular abnormalities. The widths and alignment of all 3 compartments are maintained bilaterally. IMPRESSION: Negative bilateral knees. Electronically authenticated by: ANTONY MORALES Date: 2022-06-20 00:46 Normal [facility] Basophils Auto (Bld) [#/Vol] Ordered By: Brett Mendez on 02-24-2022 Basophils (Bld) [#/Vol] 0.0 10*3/uL 0.0-0.2 [facility] Basophils/100 WBC Auto (Bld) Ordered By: Brett Mendez on 02-24-2022 Basophils/100 WBC (Bld) 0.2 % . [facility] Calcium [Mass/volume] in Ser um or PlasmaOrdered By: Brett Mendez on 02-24-2022 Calcium [Mass/Vol] 9.9 mg/dL 8.2-10.2 [facility] Carbon dioxide, total [Moles /volume] in Serum or PlasmaOrdered By: Brett Mendez on 02-24-2022 CO2 [Moles/Vol] 27.2 mmol/L 22.0-30.0 [facility] Chloride [Moles/volume] in S aime or PlasmaOrdered By: Brett Mendez on 02-24-2022 Chloride [Moles/Vol] 100 mmol/L 95-[address] [facility] Cholesterol [Mass/volume] in Serum or PlasmaOrdered By: Brett Mendez on 02-24-2022 Cholesterol [Mass/Vol] 149 mg/dL 140-200 [facility] Comment on above: Chol less than 200 m g/dl low riskChol 201-239 mg/dl borderline riskChol 240 mg/dl and greater high risk Cholesterol in LDL Calc [Mas s/Vol]Ordered By: Brett Mendez on 02-24-2022 Cholesterol in LDL [Mass/Vol] 87 mg/dL 0-100 [facility] Comment on above: LDL ATP III CLASSIFI CATIONLDL less than 100 mg/dL OptimalLDL 100-129 mg/dL Near or above optimalLDL 130-159 mg/dL Borderline highLDL 160-189 mg/dL HighLDL greater than 189 mg/dL Very high Cholesterol in VLDL Calc [Ma ss/Vol]Ordered By: Brett Mendez on 02-24-2022 Cholesterol in VLDL [Mass/Vol] 15 mg/dL [facility] Creatinine and Glomerular fi ltration rate.predicted panel (S/P/Bld)Ordered By: Brett Mendez on 02-24-2022 Creatinine [Mass/Vol] 0.92 mg/dL 0.64-1.27 [facility] Eosinophils Auto (Bld) [#/Vo l]Ordered By: Brett Mendez on 02-24-2022 Eosinophils (Bld) [#/Vol] 0.1 10*3/uL 0.0-0.45 [facility] Eosinophils/100 WBC Auto (Bl d)Ordered By: Brett Mendez on 02-24-2022 Eosinophils/100 WBC (Bld) 1.4 % . [facility] Erythrocyte distribution wid th Auto (RBC) [Ratio]Ordered By: Brett Mendez on 02-24-2022 Erythrocyte distribution width (RBC) [Ratio] 13.1 % 12.0-14.8 [facility] Estimated glomerular filtrat ion rate (GFR) non- AmericanOrdered By: Brett Mendez on 02-24-2022 GFR/1.73 sq M.predicted among non-blacks MDRD (S/P/Bld) [Vol rate/Area] > 60 mL/Min [facility] Glucose [Mass/volume] in Ser um or PlasmaOrdered By: Brett Mendez on 02-24-2022 Glucose [Mass/Vol] 84 mg/dL 70-100 [facility] Comment on above: ADA recommended refe rence rangeRandom Glucose Reference Range is dependent on time and content of last meal. Glucose of more than 200 mg/dL in a nonstressed, ambulatory subject supports the diagnosis of Diabetes Mellitus. Hematocrit Auto (Bld) [Volum e fraction]Ordered By: Brett Mendez on 02-24-2022 Hematocrit (Bld) [Volume fraction] 45.2 % 38.8-50.0 [facility] Hemoglobin [Mass/volume] in BloodOrdered By: Brett Mendez on 02-24-2022 Hemoglobin (Bld) [Mass/Vol] 15.4 g/dL 13.0-17.0 [facility] Leukocytes [#/volume] correc chang for nucleated erythrocytes in Blood by Automated counOrdered By: Brett Mendez on 02-24-2022 WBC corrected for nucl RBC Auto (Bld) [#/Vol] 6.8 10*3/uL 4.1-10.5 [facility] Lymphocytes Auto (Bld) [#/Vo l]Ordered By: Brett Mendez on 02-24-2022 Lymphocytes (Bld) [#/Vol] 2.7 10*3/uL 1.00-4.8 [facility] Lymphocytes/100 WBC Auto (Bl d)Ordered By: Brett Mendez on 02-24-2022 Lymphocytes/100 WBC (Bld) 39.0 % . [facility] MCH Auto (RBC) [Entitic mass ]Ordered By: Brett Mendez on 02-24-2022 MCH (RBC) [Entitic mass] 30.4 pg 27.5-35.2 [facility] MCHC Auto (RBC) [Mass/Vol]Or dered By: Brett Mendez on 02-24-2022 MCHC (RBC) [Mass/Vol] 34.0 g/dL 32.5-35.6 [facility] MCV Auto (RBC) [Entitic vol] Ordered By: Brett Mendez on 02-24-2022 MCV (RBC) [Entitic vol] 89.2 fL 83.5-101 [facility] Monocytes Auto (Bld) [#/Vol] Ordered By: Brett Mendez on 02-24-2022 Monocytes (Bld) [#/Vol] 0.6 10*3/uL 0.0-0.8 [facility] Monocytes/100 WBC Auto (Bld) Ordered By: Brett Mendez on 02-24-2022 Monocytes/100 WBC (Bld) 8.2 % . [facility] Neutrophils Auto (Bld) [#/Vo l]Ordered By: Brett Mendez on 02-24-2022 Neutrophils (Bld) [#/Vol] 3.5 10*3/uL 1.8-7.7 [facility] Neutrophils/100 WBC Auto (Bl d)Ordered By: Brett Mendez on 02-24-2022 Neutrophils/100 WBC (Bld) 51.2 % . [facility] No Panel InformationOrdered By: Brett Mendez on 02-24-2022 25-Hydroxy Vitamin D Total 11.5 ng/mL 30-100 [facility] Comment on above: VITAMIN D STATUS 25( [place])VITAMIN D RANGE (ng/mL) Deficient <20 Insufficient 20 to <30Sufficient 30 to 100Reference: Wendy MF,Shu NC, Smooth JACOBO, et al. Evaluation,treatment, and prevention of vitamin D deficiency; an Endocrine Society clinical practice guideline. JCEM. 2010; 96(7):1911-30. Estimated GFR () > 60 mL/Min [facility] Comment on above: GFR estimated refere nce range: According to KDOQI guidelines, <60 ml/min/1.73m2 is sufficient to diagnose a patient with chronic kidney disease. Pharmacy Creatinine Clearance (Chem N/A [facility] Nucleated erythrocytes [Pres ence] in Blood by Automated countOrdered By: Brett Mendez on 02-24-2022 Nucleated RBC Auto Ql (Bld) 0.1 /100{WBC} 0-0.5 [facility] Platelet mean volume Auto (B ld) [Entitic vol]Ordered By: Brett Mendez on 02-24-2022 Platelet mean volume (Bld) [Entitic vol] 8.1 fL 6.6-10.1 [facility] Platelets Auto (Bld) [#/Vol] Ordered By: Brett Mendez on 02-24-2022 Platelets (Bld) [#/Vol] 301 10*3/uL 150-450 [facility] Potassium [Moles/volume] in Serum or PlasmaOrdered By: Brett Mendez on 02-24-2022 Potassium [Moles/Vol] 4.0 mmol/L 3.5-5.1 [facility] RBC Auto (Bld) [#/Vol]Ordere d By: Brett Mendez on 02-24-2022 RBC (Bld) [#/Vol] 5.07 10*6/uL 3.90-5.60 [facility] Serum or plasma anion gap de terminationOrdered By: Brett Mendez on 02-24-2022 Anion gap [Moles/Vol] 14.8 mmol/L 6.0-15.0 [facility] Serum or plasma high density lipoprotein (HDL) cholesterol measurementOrdered By: Brett Mendez on 02-24-2022 Cholesterol in HDL [Mass/Vol] 47 mg/dL [facility] Comment on above: HDL CHOL ATP-III CLA SSIFICATION Cardiovascular RiskHDL > or equal to 60 mg/dL LOWHDL < 40 mg/dL HIGH Serum or plasma total choles terol/high density lipoprotein (HDL) cholesterol mass ratOrdered By: Brett Mendez on 02-24-2022 Cholesterol.total/Chol esterol in HDL [Mass ratio] 3.2 {ratio} <5.0 [facility] Sodium [Moles/volume] in Ser um or PlasmaOrdered By: Brett Mendez on 02-24-2022 Sodium [Moles/Vol] 138 mmol/L 136-146 [facility] TSH DL <= 0.005 mIU/L QnOrde red By: Brett Mendez on 02-24-2022 TSH Qn 3.42 m[IU]/L 0.45-5.33 [facility] Triglyceride [Mass/volume] i n Serum or PlasmaOrdered By: Brett Mendez on 02-24-2022 Triglyceride [Mass/Vol] 77 mg/dL 35-149 [facility] Comment on above: TRIG ATP III CLASSIF ICATIONTRIG less than 150 mg/dL NormalTRIG 150-199 mg/dL Borderline highTRIG 200-500 mg/dL High TRIG greater than 500 mg/dL Very highStandard traceable to the Center for Disease Conrtrol and Prevention (CDC) test method. Urea nitrogen [Mass/volume] in Serum or PlasmaOrdered By: Brett Mendez on 02-24-2022 Urea nitrogen [Mass/Vol] 9 mg/dL 10-28 [facility] WBC Auto (Bld) [#/Vol]Ordere d By: Brett Mendez on 02-24-2022 WBC (Bld) [#/Vol] 6.8 10*3/uL 4.1-10.5 [facility] Cholesterol [Mass/volume] in Serum or PlasmaOrdered By: Isabela Celeste on 10-25-2021 Cholesterol [Mass/Vol] 178 mg/dL 140-200 [facility] Comment on above: Chol less than 200 m g/dl low risk Chol 201-239 mg/dl borderline risk Chol 240 mg/dl and greater high risk Cholesterol in LDL Calc [Mas s/Vol]Ordered By: Isabela Celeste on 10-25-2021 Cholesterol in LDL [Mass/Vol] 115 mg/dL 0-100 [facility] Comment on above: LDL ATP III CLASSIFI CATION LDL less than 100 mg/dL Optimal LDL 100-129 mg/dL Near or above optimal LDL 130-159 mg/dL Borderline high LDL 160-189 mg/dL High LDL greater than 189 mg/dL Very high Cholesterol in VLDL Calc [Ma ss/Vol]Ordered By: Isabela Celeste on 10-25-2021 Cholesterol in VLDL [Mass/Vol] 17 mg/dL [facility] Serum or plasma cholesterol in LDL measurement (mass/volume)Ordered By: Isabela Celeste on 10-25-2021 Cholesterol in LDL [Mass/Vol] 112 mg/dL 0-100 [facility] Comment on above: LDL ATP III CLASSIFI CATION LDL less than 100 mg/dL Optimal LDL 100-129 mg/dL Near or above optimal LDL 130-159 mg/dL Borderline high LDL 160-189 mg/dL High LDL greater than 189 mg/dL Very high Serum or plasma high density lipoprotein (HDL) cholesterol measurementOrdered By: Isabela Celeste on 10-25-2021 Cholesterol in HDL [Mass/Vol] 46 mg/dL 29-71 [facility] Comment on above: HDL CHOL ATP-III CLA SSIFICATION Cardiovascular Risk HDL > or equal to 60 mg/dL LOW HDL < 40 mg/dL HIGH Serum or plasma total choles terol/high density lipoprotein (HDL) cholesterol mass ratOrdered By: Isabela Celeste on 10-25-2021 Cholesterol.total/Chol esterol in HDL [Mass ratio] 3.9 {ratio} <5.0 [facility] TSH DL <= 0.005 mIU/L QnOrde red By: Isabela Celeste on 10-25-2021 TSH Qn 1.73 m[IU]/L 0.45-5.33 [facility] Thyroxine (T4) free [Mass/vo lume] in Serum or PlasmaOrdered By: Isabela Celeste on 10-25-2021 Free T4 [Mass/Vol] 1.08 ng/dL 0.61-1.12 [facility] Triglyceride [Mass/volume] i n Serum or PlasmaOrdered By: Isabela Celeste on 10-25-2021 Triglyceride [Mass/Vol] 87 mg/dL 35-149 [facility] Comment on above: TRIG ATP III CLASSIF ICATION TRIG less than 150 mg/dL Normal TRIG 150-199 mg/dL Borderline high TRIG 200-500 mg/dL High TRIG greater than 500 mg/dL Very high Standard traceable to the Center for Disease Conrtrol and Prevention (CDC) test method. CBC AUTO DIFFon 10-22-2021 BASO # 0.0 103/ul Normal 0.0-0.1 [facility] Comment on above: Performed By: #### C BC #### [facility] [address] [address] [address] Alexei May Basophils/100 WBC (Bld) 0.3 % Normal 0.2-2.0 [facility] Comment on above: Performed By: #### C BC #### [facility] [address] [address] [address] Alexei May EO # 0.1 103/ul Normal 0.0-0.7 [facility] Comment on above: Performed By: #### C BC #### [facility] [address] [address] [address] Alexei May Eosinophils/100 WBC (Bld) 1.2 % Normal 0.9-7.0 [facility] Comment on above: Performed By: #### C BC #### [facility] [address] [address] [address] Alexei May Erythrocyte distribution width (RBC) [Ratio] 12.7 % Normal 11.0-15.0 [facility] Comment on above: Performed By: #### C BC #### [facility] [address] [place] [address] Dr. Alexei May Hematocrit (Bld) [Volume fraction] 43.7 % Normal 42.0-54.0 [facility] Comment on above: Performed By: #### C BC #### [facility] [address] [place] [address] Dr. Alexei May Hemoglobin (Bld) [Mass/Vol] 14.9 g/dL Normal 14.0-18.0 [facility] Comment on above: Performed By: #### C BC #### [facility] [address] [place] [address] Dr. Alexei May IG # 0.02 10e3/ul Normal 0.00-0.03 [facility] Comment on above: Performed By: #### C BC #### [facility] [address] [place] [address] Dr. Alexei May IG % 0.3 % Normal 0.0-0.5 [facility] Comment on above: Performed By: #### C BC #### [facility] [address] [place] [address] Dr. Alexei May LYMPH # 1.8 103/ul Normal 1.2-3.8 [facility] Comment on above: Performed By: #### C BC #### [facility] [address] [place] [address] Dr. Alexei May Lymphocytes/100 WBC (Bld) 23.8 % Normal 20.5-60.0 [facility] Comment on above: Performed By: #### C BC #### [facility] [address] [place] [address] Dr. Alexei May MANUAL DIFF REQ NO Normal [facility] Comment on above: Performed By: #### C BC #### [facility] [address] [place] [address] Dr. Alexei May MCH (RBC) [Entitic mass] 30.4 pg Normal 25.9-34.0 [facility] Comment on above: Performed By: #### C BC #### [facility] [address] [address] [address] Alexei May MCHC (RBC) [Mass/Vol] 34.1 g/dL Normal 29.9-35.2 [facility] Comment on above: Performed By: #### C BC #### [facility] [address] [address] [address] Alexei May MCV (RBC) [Entitic vol] 89.2 fL Normal 80.0-94.0 [facility] Comment on above: Performed By: #### C BC #### [facility] [address] [address] [address] Alexei May MONO # 0.6 103/ul Normal 0.3-0.8 [facility] Comment on above: Performed By: #### C BC #### [facility] [address] [place] [address] Dr. Alexei May Monocytes/100 WBC (Bld) 7.5 % Normal 1.7-12.0 [facility] Comment on above: Performed By: #### C BC #### [facility] [address] [address] [address] Alexei May NEUT # 5.1 103/ul Normal 1.4-6.5 [facility] Comment on above: Performed By: #### C BC #### [facility] [address] [address] [address] Alexei May Neutrophils/100 WBC (Bld) 66.9 % Normal 43.0-75.0 [facility] Comment on above: Performed By: #### C BC #### [facility] [address] [address] [address] Alexei May Platelet mean volume (Bld) [Entitic vol] 9.2 fL Critically low 9.5-13.5 [facility] Comment on above: Performed By: #### C BC #### [facility] [address] [address] [address] Alexei May PLT 284 103/ul Normal 150-450 [facility] Comment on above: Performed By: #### C BC #### [facility] [address] [place] [address] Dr. Alexei May RBC 4.90 106/ul Normal 4.70-6.10 [facility] Comment on above: Performed By: #### C BC #### [facility] [address] [place] [address] Dr. Alexei May WBC 7.6 103/ul Normal 4.0-11.0 [facility] Comment on above: Performed By: #### C BC #### [facility] [address] [place] [address] Dr. Alexei May PROF 14(COMP METB)on 022 Albumin [Mass/Vol] 4.4 g/dL Normal 3.4-5.0 [facility] Comment on above: Performed By: #### C NICOLE, HSTROPN #### [facility] [address] [place] [address] Dr. Alexei May Albumin/Globulin [Mass ratio] 1.4 {ratio} Normal [facility] Comment on above: Performed By: #### C NICOLE, HSTROPN #### [facility] [address] [place] [address] Dr. Alexei May ALP [Catalytic activity/Vol] 43 U/L Critically low 46-116 [facility] Comment on above: Performed By: #### C MP, HSTROPN #### [facility] [address] [place] [address] Dr. Alexei May ALT [Catalytic activity/Vol] 34 U/L Normal 16-63 [facility] Comment on above: Performed By: #### C MP, HSTROPN #### [facility] [address] [place] [address] Dr. Alexei May Anion gap [Moles/Vol] 11.0 mmol/L Normal [facility] Comment on above: Performed By: #### C MP, HSTROPN #### [facility] [address] [place] [address] Dr. Alexei May AST [Catalytic activity/Vol] 16 U/L Normal 15-37 [facility] Comment on above: Performed By: #### C MP, HSTROPN #### [facility] [address] [place] [address] Dr. Alexei May Bilirubin [Mass/Vol] 0.9 mg/dL Normal 0.2-1.0 [facility] Comment on above: Performed By: #### C MP, HSTROPN #### [facility] [address] [place] [address] Dr. Alexei May Calcium [Mass/Vol] 9.8 mg/dL Normal 8.5-10.1 [facility] [facility] Comment on above: Performed By: #### C MP, HSTROPN #### [facility] [address] [place] [address] Dr. Alexei May Chloride [Moles/Vol] 106 mmol/L Normal 98-107 [facility] Comment on above: Performed By: #### C MP, HSTROPN #### [facility] [address] [place] [address] Dr. Alexei May CO2 [Moles/Vol] 24.7 mmol/L Normal 21.0-32.0 [facility] Comment on above: Performed By: #### C MP, HSTROPN #### [facility] [address] [place] [address] Dr. Alexei May Creatinine [Mass/Vol] 0.95 mg/dL Normal 0.70-1.30 [facility] Comment on above: Performed By: #### C MP, HSTROPN #### [facility] [address] [place] [address] Dr. Alexei Mya EGFR-AF INDIAN >60 Normal >=60 [facility] Comment on above: Performed By: #### C MP, HSTROPN #### [facility] [address] [place] [address] Dr. Alexei May EGFR-NON AF INDIAN >60 Normal >=60 [facility] Comment on above: Performed By: #### C MP, HSTROPN #### [facility] [address] [place] [address] Dr. Alexei May Globulin (S) [Mass/Vol] 3.1 g/dL Normal [facility] Comment on above: Performed By: #### C MP, HSTROPN #### [facility] [address] [address] [address] Alexei May Glucose [Mass/Vol] 100 mg/dL Normal 74-106 [facility] Comment on above: Performed By: #### C MP, HSTROPN #### [facility] [address] [place] [address] Dr. Alexei May Potassium [Moles/Vol] 3.7 mmol/L Normal 3.5-5.1 [facility] Comment on above: Performed By: #### C MP, HSTROPN #### [facility] [address] [place] [address] Dr. Alexei May Protein [Mass/Vol] 7.5 g/dL Normal 6.4-8.2 [facility] Comment on above: Performed By: #### C MP, HSTROPN #### [facility] [address] [place] [address] Dr. Alexei May Sodium [Moles/Vol] 138 mmol/L Normal 136-145 [facility] Comment on above: Performed By: #### C MP, HSTROPN #### [facility] [address] [place] [address] Dr. Alexei May Urea nitrogen [Mass/Vol] 9.0 mg/dL Normal 7.0-18.0 [facility] Comment on above: Performed By: #### C MP, HSTROPN #### [facility] [address] [place] [address] Dr. Alexei May Urea nitrogen/Creatinine [Mass ratio] 9.5 mg/mg Normal [facility] Comment on above: Performed By: #### C MP, HSTROPN #### [facility] [address] [place] [address] Dr. Alexei May TROPONIN, HIGH SENSITIVITYon 10-22-2021 HSTROP <4.0 Normal 4.0-76.1 [facility] Comment on above: Result Comment: CUT- OFF POINTS HAVE BEEN ESTABLISHED BASED ON THE FOURTH UNIVERSAL DEFINITIONS OF MYOCARDIAL INFARCTION. THE UPPER REFERENCE LIMIT (URL) OF TROPONIN, DEFINED THE 99TH PERCENTILE OF cTnI DISTRIBUTION IN A REFERENCE POPULATION, HAS BEEN CONFIRMED THE DECISION THRESHOLD FOR [place] DIAGNOSIS. Performed By: #### C NICOLE, HSTROPAmparo #### [facility] [address] [address] [address] Alexei May XR CHEST 1 Von 10-22-2021 XR CHEST 1 V EXAM: XR CHEST 1 V COMPARISON: None available. CLINICAL INDICATION: Chest pain. FINDINGS: The cardiomediastinal silhouette is within normal limits. No focal consolidation. No pleural effusion. No pneumothorax. No evidence of acute osseous abnormality. IMPRESSION: No radiographic evidence of acute abnormality. Electronically authenticated by: HANNA BONILLA Date: 2021-10-22 20:20 Normal [facility] Vital Signs Date Time Vital Sign Value Performing Clinician Jon penn 09-09-2024 15:54-0400 Body mass index (BMI) [Ratio] 38.45 kg/m2 Liliane Yanira TELETYPESETTER Work Phone: [facility] 09-09-2024 15:54-0400 Body temperature 99 [degF] Liliane Yanira TELETYPESETTER Work Phone: [facility] 09-09-2024 15:54-0400 Body weight 121.56 kg Liliane Yanira TELETYPESETTER Work Phone: [facility] 09-09-2024 15:54-0400 Diastolic blood pressure 94 mm[Hg] Liliane Yanira TELETYPESETTER Work Phone: [facility] 09-09-2024 15:54-0400 Heart rate 89 /min Liliane Yanira TELETYPESETTER Work Phone: [facility] 09-09-2024 15:54-0400 Respiratory rate 18 /min Liliane Yanira TELETYPESETTER Work Phone: [facility] 09-09-2024 15:54-0400 SaO2% (BldA) [Mass fraction] 98 % Liliane Doyle TELETYPESETTER Work Phone: [facility] 09-09-2024 15:54-0400 Systolic blood pressure 130 mm[Hg] Liliane Aichholz TELETYPESETTER Work Phone: [facility] 05-20-2024 13:28-0400 Body mass index (BMI) [Ratio] 38.25 kg/m2 Liliane Doyle TELETYPESETTER Work Phone: [facility] 05-20-2024 13:28-0400 Body temperature 97.81 [degF] Liliane Doyle TELETYPESETTER Work Phone: [facility] 05-20-2024 13:28-0400 Body weight 120.93 kg Liliane Doyle TELETYPESETTER Work Phone: [facility] 05-20-2024 13:28-0400 Diastolic blood pressure 90 mm[Hg] Liliane Doyle TELETYPESETTER Work Phone: [facility] 05-20-2024 13:28-0400 Heart rate 77 /min Liliane Doyle TELETYPESETTER Work Phone: [facility] 05-20-2024 13:28-0400 Respiratory rate 18 /min Liliane Doyle TELETYPESETTER Work Phone: [facility] 05-20-2024 13:28-0400 SaO2% (BldA) [Mass fraction] 99 % Liliane Doyle TELETYPESETTER Work Phone: [facility] 05-20-2024 13:28-0400 Systolic blood pressure 126 mm[Hg] Liliane Doyle TELETYPESETTER Work Phone: [facility] 02-26-2024 10:26-0500 Body height 177.8 cm Suad Wagnerpatrick TELETYPESETTER Work Phone: [facility] 02-26-2024 10:26-0500 Body mass index (BMI) [Ratio] 38.02 kg/m2 Suad Wagnerpatrick TELETYPESETTER Work Phone: [facility] 02-26-2024 10:26-0500 Body temperature 97.2 [degF] Suad Wagnerpatrick TELETYPESETTER Work Phone: [facility] 02-26-2024 10:26-0500 Body weight 120.2 kg Suad Sweeney TELETYPESETTER Work Phone: [facility] 02-26-2024 10:26-0500 Diastolic blood pressure 86 mm[Hg] Suad Sweeney TELETYPESETTER Work Phone: [facility] 02-26-2024 10:26-0500 Heart rate 84 /min Suad Sweeney TELETYPESETTER Work Phone: [facility] 02-26-2024 10:26-0500 Respiratory rate 16 /min Suad Sweeney TELETYPESETTER Work Phone: [facility] 02-26-2024 10:26-0500 SaO2% (BldA) [Mass fraction] 99 % Suad Sweeney TELETYPESETTER Work Phone: [facility] 02-26-2024 10:26-0500 Systolic blood pressure 136 mm[Hg] Suad Sweeney TELETYPESETTER Work Phone: [facility] 11-05-2023 09:25-0400 Body mass index (BMI) [Ratio] 38.31 kg/m2 Suad Sweeney TELETYPESETTER Work Phone: [facility] 11-05-2023 09:25-0400 Body temperature 98.01 [degF] Suad Sweeney TELETYPESETTER Work Phone: [facility] 11-05-2023 09:25-0400 Body weight 121.11 kg Suad Sweeney TELETYPESETTER Work Phone: [facility] 11-05-2023 09:25-0400 Diastolic blood pressure 68 mm[Hg] Suad Sweeney TELETYPESETTER Work Phone: [facility] 11-05-2023 09:25-0400 Heart rate 83 /min Suad Sweeney TELETYPESETTER Work Phone: [facility] 11-05-2023 09:25-0400 Respiratory rate 17 /min Suad Sandhuzpatrick TELETYPESETTER Work Phone: [facility] 11-05-2023 09:25-0400 SaO2% (BldA) [Mass fraction] 98 % Suad Sweeney TELETYPESETTER Work Phone: [facility] 11-05-2023 09:25-0400 Systolic blood pressure 122 mm[Hg] Suad Sweeney TELETYPESETTER Work Phone: [facility] 06-14-2023 11:20-0400 Diastolic blood pressure 88 mm[Hg] MD Shaikh Lehman Work Phone: [facility] 06-14-2023 11:20-0400 Heart rate 95 /min MD Shaikh Lehman Work Phone: [facility] 06-14-2023 11:20-0400 Respiratory rate 16 /min MD Shaikh Lehman Work Phone: [facility] 06-14-2023 11:20-0400 SaO2% (BldA) [Mass fraction] 95 % MD Shaikh Lehman Work Phone: [facility] 06-14-2023 11:20-0400 Systolic blood pressure 148 mm[Hg] MD Shaikh Lehman Work Phone: [facility] 06-14-2023 10:50-0400 Inhaled oxygen flow rate 2 L/min MD Shaikh Lehman Work Phone: [facility] 06-14-2023 09:56-0400 Body temperature 98.9 [degF] MD Shaikh Lehman Work Phone: [facility] 06-14-2023 06:48-0400 Body height 179.07 cm MD Shaikh Lehman Work Phone: [facility] 06-14-2023 06:48-0400 Body mass index (BMI) [Ratio] 38 kg/m2 MD Shaikh Lehman Work Phone: [facility] 06-14-2023 06:48-0400 Body weight 122 kg MD Shaikh Lehman Work Phone: [facility] 01-29-2023 04:59-0500 Body height 177.8 cm DO Terri Tupa Work Phone: [facility] 01-29-2023 04:59-0500 Body temperature 98.3 [degF] DO Terri Tupa Work Phone: [facility] 01-29-2023 04:59-0500 Body weight 117 kg DO Terri Tupa Work Phone: [facility] 01-29-2023 04:59-0500 Diastolic blood pressure 86 mm[Hg] DO Terri Tupa Work Phone: [facility] 01-29-2023 04:59-0500 Heart rate 68 /min DO Terri Tupa Work Phone: [facility] 01-29-2023 04:59-0500 Respiratory rate 18 /min DO Terri Tupa Work Phone: [facility] 01-29-2023 04:59-0500 SaO2% (BldA) [Mass fraction] 99 % DO Terri Tupa Work Phone: [facility] 01-29-2023 04:59-0500 Systolic blood pressure 142 mm[Hg] DO Terri Tupa Work Phone: [facility] 12-03-2022 20:36-0400 Diastolic blood pressure 70 mm[Hg] DO Terri Tupa Work Phone: [facility] 12-03-2022 20:36-0400 Heart rate 66 /min DO Terri Tupa Work Phone: [facility] 12-03-2022 20:36-0400 Respiratory rate 18 /min DO Terri Tupa Work Phone: [facility] 12-03-2022 20:36-0400 SaO2% (BldA) [Mass fraction] 95 % DO Terri Cuellar Work Phone: [facility] 12-03-2022 20:36-0400 Systolic blood pressure 118 mm[Hg] DO Terri Cuellar Work Phone: [facility] 12-03-2022 19:49-0400 Body height 180.34 cm DO Terri Cuellar Work Phone: [facility] 12-03-2022 19:49-0400 Body temperature 97.9 [degF] DO Terri Cuellar Work Phone: [facility] 12-03-2022 19:49-0400 Body weight 117.93 kg DO Terrikarla Cuellar Work Phone: [facility] Encounters Encounter Date Encounter Type Care Provider Facility Start: 09-18-2024 End: 09-18-2024 Refill Diony Horowitz MD Work Phone: [facility] Comment on above: RITA (generalized anx iety disorder) Start: 09-09-2024 End: 09-09-2024 Office outpatient visit 25 minutes Liliane Doyle NP Work Phone: [facility] Comment on above: RITA (generalized anx iety disorder) (Primary Dx); Gastroesophageal reflux disease, unspecified whether esophagitis present; Morbid (severe) obesity due to excess calories ([facility]); Lump of scalp; Obsessive-compulsive disorder, unspecified type Start: 09-09-2024 End: 09-09-2024 Bamboo flowsheet Liliane Doyle NP Work Phone: [facility] Start: 09-09-2024 End: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 not included. Jennifer Velásquez is a 28 y.o. male presents with chief complaint of No chief complaint on file. HPI: RUQ pain radiates to the back, sharp pain, comes and goes, random, and possibly related to eating. No NV. No bloating. No urine discoloration, had diarrhea a few days ago that was more yellowish Has been trying to eat better food options then processed Gallbladder removed: last year, dr hennessy Also having drainage from umbilical region, noted since having hernia surgery (2 years ago) looks bloody and has odor. Noted usually the day after having intercourse. SUBJECTIVE: MEDICATIONS: Current Outpatient Medications Medication Instructions busPIRone (BUSPAR) 30 mg, Oral, 2 times daily mirtazapine (REMERON) 15 mg, Oral, Daily omeprazole (PRILOSEC) 40 mg, Oral, Daily before breakfast, Do not crush or chew. ondansetron ODT (Zofran-ODT) 4 MG disintegrating tablet Every 8 hours PRN ALLERGIES: Allergies Allergen Reactions Homatropine Other Reaction(s): Hives Hycodan [Hydrocodone Bit-Homatrop Mbr] Hives and Unknown Hydrocodone Hives REVIEW OF SYMPTOMS: Review of Systems Constitutional: Negative for activity change, appetite change and unexpected weight change. HENT: Negative for ear pain, nosebleeds, sneezing, trouble swallowing and voice change. Eyes: Negative for pain, discharge and visual disturbance. Respiratory: Negative for apnea, chest tightness and wheezing. Cardiovascular: Negative for leg swelling. Gastrointestinal: Positive for abdominal distention. Negative for blood in stool, constipation and diarrhea. Genitourinary: Negative for decreased urine volume, difficulty urinating, dysuria and hematuria. Skin: Negative for color change. Neurological: Negative for dizziness, tremors and seizures. Psychiatric/Behavioral: Negative for agitation, decreased concentration, hallucinations, self-injury and suicidal ideas. The patient is not nervous/anxious. Hematological: Negative for adenopathy. Does not bruise/bleed easily. Endocrine: Negative for cold intolerance, heat intolerance, polydipsia and polyuria. Allergic/Immunologic: Negative for environmental allergies and food allergies. PAST MEDICAL HISTORY Past Medical History: Diagnosis Date Anxiety Anxiety and depression (CMS/HCC) Long standing hx of RITA w/mild depressive symptoms.Reports excessive worrying, associated heart palpitations,& poor sleep due to constant worry & anxiety.Doesn't typically experience full blown panic attacks.On Buspirone 30 q12 for 2 years now.Its working for him but not quite & still struggles with anxiety more or less on daily basis.Used Zoloft in the past & remembers it was DC'd D/T sexual S/E. Appendicitis Bronchitis Elevated TSH Elevated TSH, asymptomatic Family history of cancer Headache, cervicogenic Reports acute onset left sided occipital JACOBO radiating up from his neck when he was using an exercise equipment. Pain was sharp, acute with no associated symptoms. Getting better progressively, experiences 1-2 episodes a day, short lived. No specific aggravating or relieving factors. HTN (hypertension) (CMS/HCC) Impacted cerumen, bilateral PTSD (post-traumatic stress disorder) (CMS/HCC) Concomitant PTSD with RITA. Has nightmares, flashbacks that interfere with his sleep. Right-sided thoracic back pain Right sided thoracic pain, intermittent, on going for 5-6 months now. No injury. Was told by previous PCP that its likely muscular Muscular tenderness on right side. Suspect muscular spasm/sprain. XR no sig abnormality. Still suspect this is postural related, muscular sprain Sleep difficulties sleep issues Umbilical hernia Past Surgical History: Procedure Laterality Date APPENDECTOMY roughly 11 years old SINUS SURGERY UMBILICAL HERNIA REPAIR 09/15/2020 family history includes Cancer in his maternal grandfather and paternal grandfather; Colon cancer in his paternal grandfather; Diabetes in his paternal grandfather; Hypertension in his father. OBJECTIVE: Visit Vitals BP 126/90 (BP Location: Left arm, Patient Position: Sitting, BP Cuff Size: Large adult) Pulse 77 Temp 97.8 F (Temporal) Resp 18 Wt 266 lb 9.6 oz SpO2 99% BMI 38.25 kg/m Smoking Status Former BSA 2.44 m Physical Exam Vitals and nursing note reviewed. Constitutional: Appearance: Normal appearance. HENT: Head: Normocephalic. Right Ear: External ear normal. Left Ear: External ear normal. Nose: Nose normal. Mouth/Throat: Mouth: Mucous membranes are moist. Pharynx: Oropharynx is clear. Eyes: Extraocular Movements: Extraocular movements intact. Conjunctiva/sclera: Conjunctivae normal. Cardiovascular: Rate and Rhythm: Normal rate and regular rhythm. Pulses: Normal pulses. Heart sounds: Normal heart sounds. Pulmonary: Effort: Pulmonary effort is normal. Breath sounds: Normal breath sounds. No wheezing or rhonchi. Abdominal: General: Bowel sounds are normal. Palpations: Abdomen is soft. Tenderness: There is no abdominal tenderness. Comments: Umbilical area, no active drainage, q tip sm amount of bloody/brown colored discharge Musculoskeletal: Cervical back: Neck supple. Right lower leg: No edema. Left lower leg: No edema. Skin: General: Skin is warm and dry. Capillary Refill: Capillary refill takes 2 to 3 seconds. Neurological: General: No focal deficit present. Mental Status: He is alert. Psychiatric: Mood and Affect: Mood normal. Behavior: Behavior normal. Thought Content: Thought content normal. Judgment: Judgment normal. ASSESSMENT AND PLAN: No follow-ups on file. Problem List Items Addressed This Visit RITA (generalized anxiety disorder) (CMS/HCC) RITA 7=13 Morbid (severe) obesity due to excess calories (CMS/HCC) - Primary Discussed with patient their BMI (actual, verses recommended). We have also discussed lifestyle modifications: attempts to perform physical activity as chronic conditions allow, also to monitor dietary intake: increasing protein/fruits/veggies and lowering carb intake (unless contraindicated). Limit sodas, juices, and sugary drinks. Adjustment disorder with depressed mood (CMS/HCC) PHQ 9=12 Candidiasis Relevant Medications nystatin (Mycostatin) ointment Associated Problem(s): Morbid (severe) obesity due to excess calories (CMS/HCC) Discussed with patient their BMI (actual, verses recommended). We have also discussed lifestyle modifications: attempts to perform physical activity as chronic conditions allow, also to monitor dietary intake: increasing protein/fruits/veggies and lowering carb intake (unless contraindicated). Limit sodas, juices, and sugary drinks. documented in this encounter [facility] 05-20-2024 Instructions Liliane Doyle NP - 05/20/2024 1:20 PM EDT Nystatin ointment to affected area: twice a day 14 days Clean belly button area with q tip, keep clean and dry US: liver will wait for results and go from there we may need to refer to GI possibly pending the results documented in this encounter [facility] 03-18-2024 Telephone encounter Note LUL:02/26/2024 NOV:04/01/2024 [facility] 03-18-2024 Miscellaneous Notes LUL:02/26/2024 NOV:04/01/2024 documented in this encounter [facility] 02-26-2024 History of Present illness Narrative Associated Problem(s): Lump of scalp Noticed lump on right lateral aspect of skull X 2 days ago. Denies Blurry vision Headaches Dizziness Loss of balance or coordination Memory loss Firm immoveable growth, quarter in size Painless. Will continue to monitor size over next month. Return to office in one month- if any changes will order CT scan. Images from the original note were not included. Subjective Patient ID: Jennifer Velásquez is a 28 y.o. male who presents for Mass (Lump behind Right ear noticed it 2 day ago). HPI Feels like he has a lump in skull, is immoveable, painless. Denies drainage form lump. Noticed lump 2 days ago. Denies Blurry vision Headaches Dizziness Loss of balance or coordination Memory loss Firm immoveable growth, quarter in size Pianless. Will continue to monitor size over next month. Return to office in one month- if any changes will order CT scan. Review of Systems Constitutional: Negative for activity change, appetite change, chills, diaphoresis, fatigue, fever and unexpected weight change. HENT: Negative for congestion, ear pain, rhinorrhea, sinus pressure, sinus pain, sneezing, sore throat, trouble swallowing and voice change. Eyes: Negative for visual disturbance. Respiratory: Negative for cough, chest tightness, shortness of breath and wheezing. Cardiovascular: Negative for chest pain, palpitations and leg swelling. Gastrointestinal: Negative for abdominal distention, abdominal pain, blood in stool, constipation, diarrhea and vomiting. Genitourinary: Negative for decreased urine volume, dysuria, flank pain, frequency, hematuria and urgency. Musculoskeletal: Negative for arthralgias, gait problem, joint swelling and myalgias. Skin: Negative for rash. Lump on right lateral aspect of scalp, Neurological: Negative for dizziness, tremors, syncope, weakness, light-headedness and headaches. Psychiatric/Behavioral: Negative for decreased concentration and suicidal ideas. The patient is not nervous/anxious. Hematological: Does not bruise/bleed easily. Endocrine: Negative for cold intolerance, heat intolerance, polydipsia, polyphagia and polyuria. Objective Physical Exam Vitals reviewed. Constitutional: Appearance: Normal appearance. HENT: Right Ear: Tympanic membrane normal. Left Ear: Tympanic membrane normal. Nose: Nose normal. Mouth/Throat: Mouth: Mucous membranes are moist. Pharynx: Oropharynx is clear. Eyes: Pupils: Pupils are equal, round, and reactive to light. Cardiovascular: Rate and Rhythm: Normal rate and regular rhythm. Pulses: Normal pulses. Heart sounds: Normal heart sounds. Pulmonary: Effort: Pulmonary effort is normal. Breath sounds: Normal breath sounds. Abdominal: General: Abdomen is flat. Bowel sounds are normal. Palpations: Abdomen is soft. Musculoskeletal: General: Normal range of motion. Skin: General: Skin is warm and dry. Capillary Refill: Capillary refill takes less than 2 seconds. Comments: Quarter sized firm immoveable lump on right lateral side of scalp. Neurological: Mental Status: He is alert and oriented to person, place, and time. Assessment/Plan Problem List Items Addressed This Visit Lump of scalp - Primary Noticed lump on right lateral aspect of skull X 2 days ago. Denies Blurry vision Headaches Dizziness Loss of balance or coordination Memory loss Firm immoveable growth, quarter in size Painless. Will continue to monitor size over next month. Return to office in one month- if any changes will order CT scan. documented in this encounter [facility] 02-26-2024 Instructions Suad Sweeney NP - 02/26/2024 10:30 AM EST Return in one month for follow up of lump. If you notice Blurry vision, Headaches, Dizziness, Loss of balance or coordination or Memory loss GO TO ER! documented in this encounter [facility] 11-05-2023 History of Present illness Narrative Images from the original note were not included. Subjective Patient ID: Jennifer Velásquez is a 28 y.o. male who presents for Headache. Headache Pertinent negatives include no abdominal pain, coughing, dizziness, ear pain, fever, rhinorrhea, sinus pressure, sore throat, vomiting or weakness. Ongoing X1 month Back of head Admits: Daytime drowsiness Fatigue Does not feel well rested Anxiety Denies: blurry vision Aura Sensitivity to light Hx of migraines Neck pain Back pain. snoring [place]: Tylenol PRN infrequently. No consistencies noted Unable to determine trigger. Declines wanting any medication regimen at this time; Had sleep study ordered but did not have done; Review of Systems Constitutional: Positive for fatigue. Negative for activity change, appetite change, chills, diaphoresis, fever and unexpected weight change. HENT: Negative for congestion, ear pain, rhinorrhea, sinus pressure, sinus pain, sneezing, sore throat, trouble swallowing and voice change. Eyes: Negative for visual disturbance. Respiratory: Negative for cough, chest tightness, shortness of breath and wheezing. Cardiovascular: Negative for chest pain, palpitations and leg swelling. Gastrointestinal: Negative for abdominal distention, abdominal pain, blood in stool, constipation, diarrhea and vomiting. Genitourinary: Negative for decreased urine volume, dysuria, flank pain, frequency, hematuria and urgency. Musculoskeletal: Negative for arthralgias, gait problem, joint swelling and myalgias. Skin: Negative for rash. Neurological: Positive for headaches. Negative for dizziness, tremors, syncope, weakness and light-headedness. Psychiatric/Behavioral: Negative for decreased concentration and suicidal ideas. The patient is not nervous/anxious. Hematological: Does not bruise/bleed easily. Endocrine: Negative for cold intolerance, heat intolerance, polydipsia, polyphagia and polyuria. Objective Physical Exam Vitals reviewed. Constitutional: Appearance: Normal appearance. HENT: Head: Normocephalic and atraumatic. Right Ear: Tympanic membrane normal. Left Ear: Tympanic membrane normal. Nose: Nose normal. Mouth/Throat: Mouth: Mucous membranes are moist. Pharynx: Oropharynx is clear. Eyes: Pupils: Pupils are equal, round, and reactive to light. Cardiovascular: Rate and Rhythm: Normal rate and regular rhythm. Pulses: Normal pulses. Heart sounds: Normal heart sounds. Pulmonary: Effort: Pulmonary effort is normal. Breath sounds: Normal breath sounds. Abdominal: General: Abdomen is flat. Bowel sounds are normal. Palpations: Abdomen is soft. Musculoskeletal: General: Normal range of motion. Cervical back: Normal range of motion. Skin: General: Skin is warm and dry. Capillary Refill: Capillary refill takes less than 2 seconds. Neurological: General: No focal deficit present. Mental Status: He is alert and oriented to person, place, and time. Psychiatric: Mood and Affect: Mood normal. Behavior: Behavior normal. Assessment/Plan Problem List Items Addressed This Visit REYES (obstructive sleep apnea) - Primary Relevant Orders Ambulatory referral to Sleep Studies documented in this encounter [facility] 11-05-2023 Instructions Suad Sweeney NP - 11/05/2023 9:30 AM EDT Referral sent to sleep medicine for sleep study; They will call you! documented in this encounter [facility] 01-11-2022 Hospital Discharge instructions Follow Up Care 01/11/2022 15:04:03 With:CHEO OBRIEN, Terri Nascimento, URL Address: [address] [place] [phone] When: Unknown [facility] Evaluation + Plan note No data available for this section [facility] Evaluation note No assessment inform ation available [facility] Work Phone: Evaluation note Diagnosis Elevated blood pressure reading in office without diagnosis of hypertension- Primary Muscle spasm Spasm of muscle RITA (generalized anxiety disorder) (CMS/HCC) Generalized anxiety disorder Lesion of skin of scalp Nausea in adult REYES (obstructive sleep apnea)- Primary Obstructive sleep apnea (adult) (pediatric) Screening for lead exposure Screening for chemical poisoning and other contamination Morbid (severe) obesity due to excess calories (CMS/HCC) RITA (generalized anxiety disorder) (CMS/HCC) Generalized anxiety disorder Elevated TSH Other abnormal blood chemistry Epigastric pain Abdominal pain, epigastric Right upper quadrant abdominal pain Right upper quadrant abdominal pain- Primary Symptomatic cholelithiasis RITA (generalized anxiety disorder) (CMS/HCC)- Primary Generalized anxiety disorder [facility] Diagnosis Elevated blood pressure reading in office without diagnosis of hypertension- Primary Muscle spasm Spasm of muscle RITA (generalized anxiety disorder) (CMS/HCC) Generalized anxiety disorder Lesion of skin of scalp Nausea in adult REYES (obstructive sleep apnea)- Primary Obstructive sleep apnea (adult) (pediatric) Screening for lead exposure Screening for chemical poisoning and other contamination Morbid (severe) obesity due to excess calories (CMS/HCC) RITA (generalized anxiety disorder) (CMS/HCC) Generalized anxiety disorder Elevated TSH Other abnormal blood chemistry Epigastric pain Abdominal pain, epigastric Right upper quadrant abdominal pain Right upper quadrant abdominal pain- Primary Symptomatic cholelithiasis RITA (generalized anxiety disorder) (CMS/HCC)- Primary Generalized anxiety disorder [facility] Diagnosis Epigastric pain Abdominal pain, epigastric [facility] Diagnosis REYES (obstructive sleep apnea)- Primary Obstructive sleep apnea (adult) (pediatric) [facility] Diagnosis Elevated blood pressure reading in office without diagnosis of hypertension- Primary Muscle spasm Spasm of muscle RITA (generalized anxiety disorder) (CMS/HCC) Generalized anxiety disorder Lesion of skin of scalp Nausea in adult REYES (obstructive sleep apnea)- Primary Obstructive sleep apnea (adult) (pediatric) Screening for lead exposure Screening for chemical poisoning and other contamination Morbid (severe) obesity due to excess calories (CMS/HCC) RITA (generalized anxiety disorder) (CMS/HCC) Generalized anxiety disorder Elevated TSH Other abnormal blood chemistry Epigastric pain Abdominal pain, epigastric Right upper quadrant abdominal pain Right upper quadrant abdominal pain- Primary Symptomatic cholelithiasis Lump of scalp- Primary [facility] Diagnosis Elevated blood pressure reading in office without diagnosis of hypertension- Primary Muscle spasm Spasm of muscle RITA (generalized anxiety disorder) (CMS/HCC) Generalized anxiety disorder Lesion of skin of scalp Nausea in adult REYES (obstructive sleep apnea)- Primary Obstructive sleep apnea (adult) (pediatric) Screening for lead exposure Screening for chemical poisoning and other contamination Morbid (severe) obesity due to excess calories (CMS/HCC) RITA (generalized anxiety disorder) (CMS/HCC) Generalized anxiety disorder Elevated TSH Other abnormal blood chemistry Epigastric pain Abdominal pain, epigastric Right upper quadrant abdominal pain Right upper quadrant abdominal pain- Primary Symptomatic cholelithiasis Lump of scalp- Primary RITA (generalized anxiety disorder) (CMS/HCC) Generalized anxiety disorder [facility] Diagnosis Elevated blood pressure reading in office without diagnosis of hypertension- Primary Muscle spasm Spasm of muscle RITA (generalized anxiety disorder) (CMS/HCC) Generalized anxiety disorder Lesion of skin of scalp Nausea in adult REYES (obstructive sleep apnea)- Primary Obstructive sleep apnea (adult) (pediatric) Screening for lead exposure Screening for chemical poisoning and other contamination Morbid (severe) obesity due to excess calories (CMS/HCC) RITA (generalized anxiety disorder) (CMS/HCC) Generalized anxiety disorder Elevated TSH Other abnormal blood chemistry Epigastric pain Abdominal pain, epigastric Right upper quadrant abdominal pain Right upper quadrant abdominal pain- Primary Symptomatic cholelithiasis Lump of scalp- Primary RITA (generalized anxiety disorder) (CMS/HCC) Generalized anxiety disorder Epigastric pain Abdominal pain, epigastric [facility] Diagnosis Elevated blood pressure reading in office without diagnosis of hypertension- Primary Muscle spasm Spasm of muscle RITA (generalized anxiety disorder) (CMS/HCC) Generalized anxiety disorder Lesion of skin of scalp Nausea in adult REYES (obstructive sleep apnea)- Primary Obstructive sleep apnea (adult) (pediatric) Screening for lead exposure Screening for chemical poisoning and other contamination Morbid (severe) obesity due to excess calories (CMS/HCC) RITA (generalized anxiety disorder) (CMS/HCC) Generalized anxiety disorder Elevated TSH Other abnormal blood chemistry Epigastric pain Abdominal pain, epigastric Right upper quadrant abdominal pain Lump of scalp- Primary Lump of scalp- Primary Morbid (severe) obesity due to excess calories (CMS/HCC) Obstructive sleep apnea (adult) (pediatric) Body mass index (BMI) 37.0-37.9, adult REYES (obstructive sleep apnea) Obstructive sleep apnea (adult) (pediatric) Gastroesophageal reflux disease, unspecified whether esophagitis present Encounter for wellness examination Balanitis Balanoposthitis Serum total bilirubin elevated- Primary Disorders of bilirubin excretion [facility] Diagnosis Elevated blood pressure reading in office without diagnosis of hypertension- Primary Muscle spasm Spasm of muscle RITA (generalized anxiety disorder) (CMS/HCC) Generalized anxiety disorder Lesion of skin of scalp Nausea in adult REYES (obstructive sleep apnea)- Primary Obstructive sleep apnea (adult) (pediatric) Screening for lead exposure Screening for chemical poisoning and other contamination Morbid (severe) obesity due to excess calories (CMS/HCC) RITA (generalized anxiety disorder) (CMS/HCC) Generalized anxiety disorder Elevated TSH Other abnormal blood chemistry Epigastric pain Abdominal pain, epigastric Right upper quadrant abdominal pain Lump of scalp- Primary Lump of scalp- Primary Morbid (severe) obesity due to excess calories (CMS/HCC) Obstructive sleep apnea (adult) (pediatric) Body mass index (BMI) 37.0-37.9, adult REYES (obstructive sleep apnea) Obstructive sleep apnea (adult) (pediatric) Gastroesophageal reflux disease, unspecified whether esophagitis present Encounter for wellness examination Balanitis Balanoposthitis Serum total bilirubin elevated- Primary Disorders of bilirubin excretion Morbid (severe) obesity due to excess calories (CMS/HCC) Adjustment disorder with depressed mood (CMS/HCC) Adjustment disorder with depressed mood RITA (generalized anxiety disorder) (CMS/HCC) Generalized anxiety disorder Candidiasis [facility] Diagnosis Elevated blood pressure reading in office without diagnosis of hypertension- Primary Muscle spasm Spasm of muscle RITA (generalized anxiety disorder) Generalized anxiety disorder Lesion of skin of scalp Nausea in adult REYES (obstructive sleep apnea)- Primary Obstructive sleep apnea (adult) (pediatric) Screening for lead exposure Screening for chemical poisoning and other contamination Morbid (severe) obesity due to excess calories (CMS-HCC) RITA (generalized anxiety disorder) Generalized anxiety disorder Elevated TSH Other abnormal blood chemistry Epigastric pain Abdominal pain, epigastric Right upper quadrant abdominal pain Lump of scalp- Primary Lump of scalp- Primary Morbid (severe) obesity due to excess calories (CMS-HCC) Obstructive sleep apnea (adult) (pediatric) Body mass index (BMI) 37.0-37.9, adult REYES (obstructive sleep apnea) Obstructive sleep apnea (adult) (pediatric) Gastroesophageal reflux disease, unspecified whether esophagitis present Encounter for wellness examination Balanitis Balanoposthitis Serum total bilirubin elevated- Primary Disorders of bilirubin excretion Morbid (severe) obesity due to excess calories (CMS-HCC) Adjustment disorder with depressed mood Adjustment disorder with depressed mood RITA (generalized anxiety disorder) Generalized anxiety disorder Candidiasis RITA (generalized anxiety disorder) Generalized anxiety disorder [facility] Diagnosis Elevated blood pressure reading in office without diagnosis of hypertension- Primary Muscle spasm Spasm of muscle RITA (generalized anxiety disorder) Generalized anxiety disorder Lesion of skin of scalp Nausea in adult REYES (obstructive sleep apnea)- Primary Obstructive sleep apnea (adult) (pediatric) Screening for lead exposure Screening for chemical poisoning and other contamination Morbid (severe) obesity due to excess calories ([facility]) RITA (generalized anxiety disorder) Generalized anxiety disorder Elevated TSH Other abnormal blood chemistry Epigastric pain Abdominal pain, epigastric Right upper quadrant abdominal pain Lump of scalp- Primary Lump of scalp- Primary Morbid (severe) obesity due to excess calories (CMS-HCC) Obstructive sleep apnea (adult) (pediatric) Body mass index (BMI) 37.0-37.9, adult REYES (obstructive sleep apnea) Obstructive sleep apnea (adult) (pediatric) Gastroesophageal reflux disease, unspecified whether esophagitis present Encounter for wellness examination Balanitis Balanoposthitis Serum total bilirubin elevated- Primary Disorders of bilirubin excretion Morbid (severe) obesity due to excess calories ([facility]) Adjustment disorder with depressed mood Adjustment disorder with depressed mood RITA (generalized anxiety disorder) Generalized anxiety disorder Candidiasis Epigastric pain Abdominal pain, epigastric [facility] Diagnosis Elevated blood pressure reading in office without diagnosis of hypertension- Primary Muscle spasm Spasm of muscle RITA (generalized anxiety disorder) Generalized anxiety disorder Lesion of skin of scalp Nausea in adult REYES (obstructive sleep apnea)- Primary Obstructive sleep apnea (adult) (pediatric) Screening for lead exposure Screening for chemical poisoning and other contamination Morbid (severe) obesity due to excess calories (CMS-HCC) RITA (generalized anxiety disorder) Generalized anxiety disorder Elevated TSH Other abnormal blood chemistry Epigastric pain Abdominal pain, epigastric Right upper quadrant abdominal pain Lump of scalp- Primary Lump of scalp- Primary Morbid (severe) obesity due to excess calories (CMS-HCC) Obstructive sleep apnea (adult) (pediatric) Body mass index (BMI) 37.0-37.9, adult REYES (obstructive sleep apnea) Obstructive sleep apnea (adult) (pediatric) Gastroesophageal reflux disease, unspecified whether esophagitis present Encounter for wellness examination Balanitis Balanoposthitis Serum total bilirubin elevated- Primary Disorders of bilirubin excretion Morbid (severe) obesity due to excess calories (CMS-HCC) Adjustment disorder with depressed mood Adjustment disorder with depressed mood RITA (generalized anxiety disorder) Generalized anxiety disorder Candidiasis RITA (generalized anxiety disorder)- Primary Generalized anxiety disorder Gastroesophageal reflux disease, unspecified whether esophagitis present Morbid (severe) obesity due to excess calories (CMS-HCC) Lump of scalp Obsessive-compulsive disorder, unspecified type [facility] Diagnosis Elevated blood pressure reading in office without diagnosis of hypertension- Primary Muscle spasm Spasm of muscle RITA (generalized anxiety disorder) Generalized anxiety disorder Lesion of skin of scalp Nausea in adult REYES (obstructive sleep apnea)- Primary Obstructive sleep apnea (adult) (pediatric) Screening for lead exposure Screening for chemical poisoning and other contamination Morbid (severe) obesity due to excess calories (CMS-HCC) RITA (generalized anxiety disorder) Generalized anxiety disorder Elevated TSH Other abnormal blood chemistry Epigastric pain Abdominal pain, epigastric Right upper quadrant abdominal pain Lump of scalp- Primary Lump of scalp- Primary Morbid (severe) obesity due to excess calories (CMS-HCC) Obstructive sleep apnea (adult) (pediatric) Body mass index (BMI) 37.0-37.9, adult REYES (obstructive sleep apnea) Obstructive sleep apnea (adult) (pediatric) Gastroesophageal reflux disease, unspecified whether esophagitis present Encounter for wellness examination Balanitis Balanoposthitis Serum total bilirubin elevated- Primary Disorders of bilirubin excretion Morbid (severe) obesity due to excess calories (CMS-HCC) Adjustment disorder with depressed mood Adjustment disorder with depressed mood RITA (generalized anxiety disorder) Generalized anxiety disorder Candidiasis RITA (generalized anxiety disorder)- Primary Generalized anxiety disorder Gastroesophageal reflux disease, unspecified whether esophagitis present Morbid (severe) obesity due to excess calories (CMS-HCC) Lump of scalp Obsessive-compulsive disorder, unspecified type RITA (generalized anxiety disorder) Generalized anxiety disorder [facility] Additional Instructions Take Flexeril as prescribed for muscle spasm. Make sure you are getting at least 7-8 hours of sleep a day. Increase your intake of fluids make sure you are well-hydrated. Take a multivitamin daily.[facility] Work Phone: Hospital Discharge instructions Additional Instructions 1. No driving if taking narcotic pain medication. 2. No lifting more than 20 pounds for 2 weeks. 3. May shower.[facility] Work Phone: Progress note No data available for this section [facility] reason for referral (narrative)* Consultation (Routine) - Pending Review Specialty Diagnoses / Procedures Referred By Lamonte de santiago Referred To Contact Sleep Medicine Diagnoses REYES (obstructive sleep apnea) Procedures NC OFFICE/OUTPATIENT NEW HIGH MDM 60 MINUTES Suad Sweeney NP [address] [place] [address] Juan Zuleta MD [address] [place] [id number] Referral ID Status Reason Start Date Expiration Date Visits Requested Visits Authorized [id number] Pending Review Specialty Services Required 11/05/2023 05/03/2024 1 1 [facility] Chief Complaint and Reason for Visit Chief Complaint Anxiety Encounter fo r screening for lipoid disorde Chief Complaint R61 Z13.6 F41.9 S29.011A Chief Complaint chest pain Chief Complaint chest pain Bilat Leg & Arm Pain - NKI Chief Complaint Z13.88 R79.89 Chief Complaint Z13.88 R79.89 R10.13 Chief Complaint Z13.88 R79.89 R10.13 Cholelithiasis Chief Complaint Z13.88 R79.89 R10.13 Cholelithiasis Cholelithiasis Advance Directives Advance Directive Response Recorded Date/ Time Advance Directives No January 8:30am Advance Directive Response Recorded Date/ Time Advance Directives No January 7:30am Summary Purpose Family History Relationship Condition Age at Onset Recorded Date/T mary father Hypertension Unknown Additional Source Comments Care Teams (unrecognized sec tion and content) Team Status: Inactive Member Role Status Dates Isabela Celeste MD RES Attending Provider Active Team Status: Active Member Role Status Dates Services Family Health Primary Care Provider Active Team Status: Inactive Member Role Status Dates Memo Martinez DO Attending Provider Active Services Family [facility] Primary Care Provider Active Brett Mendez , RES Other Provider Active Team Status: Inactive Member Role Status Dates Services Family [facility] Primary Care Provider Active Ramirez Laguerre , RENE-C Attending Provider Active Team Status: Active Member Role Status Dates Shaikh Fallon MD Primary Care Provider Active Team Status: Inactive Member Role Status Dates Terri Cuellar DO Emergency Provider Active Shaikh Fallon MD Primary Care Provider Active Team Status: Inactive Member Role Status Dates Shaikh Fallon MD Primary Care Provider Active Frederick Schwab , Emergency Provider Active Team Status: Inactive Member Role Status Dates Shaikh Fallon MD Primary Care Provide r, Attending Provider Active Start: May 18, 2023 End: May 18, 2023 Team Status: Inactive Member Role Status Char Lehman MD Primary Care Provide r, Attending Provider Active Start: May 22, 2023 End: May 22, 2023 Team Status: Inactive Member Role Status Char Lehman MD Primary Care Provider Active Start: May 31, 2023 End: May 31, 2023 Lily Hennessy MD Attending Provider Active Sta rt: May 31, 2023 End: May 31, 2023 Team Status: Inactive Member Role Status Char Lehman MD Primary Care Provider Active Start: June 14, 2023 End: June 14, 2023 Lily Hennessy MD Attending Provider Active Sta rt: June 14, 2023 End: June 14, 2023 Juvenile Detention Officer Relationship Specialty Start Date End Date Diony Horowitz MD [address] [place] [address] PCP - General Family Medicine 10/10/23 Suad Sweeney NP [address] [place] [id number] Nurse Practitioner Family Medicine 10/10/23 Juvenile Detention Officer Relationship Specialty Start Date End Date Diony Horowitz MD [address] [place] [address] PCP - General Family Medicine 10/10/23 Suad Sweeney NP [address] [place] [address] Nurse Practitioner Family Medicine 10/10/23 Juvenile Detention Officer Relationship Specialty Start Date End Date Diony Horowitz MD [address] [place] [address] PCP - General Family Medicine 10/10/23 Suad Sweeney NP [address] [place] [address] Nurse Practitioner Family Medicine 10/10/23 Juvenile Detention Officer Relationship Specialty Start Date End Date Diony Horowitz MD [address] [place] [address] PCP - General Family Medicine 10/10/23 Suad Sweeney NP [address] [place] [address] Nurse Practitioner Family Medicine 10/10/23 Juvenile Detention Officer Relationship Specialty Start Date End Date Diony Horowitz MD [address] [place] [address] PCP - General Family Medicine 10/10/23 Suad Sweeney NP [address] [place] [address] Nurse Practitioner Family Medicine 10/10/23 Juvenile Detention Officer Relationship Specialty Start Date End Date Diony Horowitz MD [address] [place] [address] PCP - General Family Medicine 10/10/23 Suad Sweeney NP [address] [place] [address] Nurse Practitioner Family Medicine 10/10/23 Juvenile Detention Officer Relationship Specialty Start Date End Date Diony Horowitz MD [address] [place] [address] PCP - General Family Medicine 10/10/23 Suad Sweeney NP [address] [place] [address] Nurse Practitioner Family Medicine 10/10/23 Juvenile Detention Officer Relationship Specialty Start Date End Date Diony Horowitz MD [address] [place] [address] PCP - General Family Medicine 10/10/23 Suad Sweeney NP [address] [place] [address] Nurse Practitioner Family Medicine 10/10/23 Juvenile Detention Officer Relationship Specialty Start Date End Date Diony Horowitz MD [address] [place] [address] PCP - General Family Medicine 10/10/23 Suad Sweeney NP [address] [place] [address] Nurse Practitioner Family Medicine 10/10/23 Juvenile Detention Officer Relationship Specialty Start Date End Date Diony Horowitz MD [address] [place] [address] PCP - General Family Medicine 10/10/23 Suad Sweeney NP [address] [place] [address] Nurse Practitioner Family Medicine 10/10/23 Juvenile Detention Officer Relationship Specialty Start Date End Date Diony Horowitz MD [address] [place] [address] PCP - General Family Medicine 10/10/23 Suad Sweeney NP [address] [place] [address] Nurse Practitioner Family Medicine 10/10/23 Juvenile Detention Officer Relationship Specialty Start Date End Date Diony Horowitz MD [address] [place] [address] PCP - General Family Medicine 10/10/23 Suad Sweeney NP [address] [place] [address] Nurse Practitioner Family Medicine 10/10/23 Juvenile Detention Officer Relationship Specialty Start Date End Date Diony Horowitz MD [address] [place] [address] PCP - General Family Medicine 10/10/23 Suad Sweeney NP [address] [place] [address] Nurse Practitioner Family Medicine 10/10/23 Juvenile Detention Officer Relationship Specialty Start Date End Date Diony Horowitz MD [address] [place] [address] PCP - General Family Medicine 10/10/23 Suad Sweeney NP [address] [place] [address] Nurse Practitioner Family Medicine 10/10/23 Juvenile Detention Officer Relationship Specialty Start Date End Date Diony Horowitz MD [address] [place] [address] PCP - General Family Medicine 10/10/23 Suad Sweeney NP [address] [place] [address] Nurse Practitioner Family Medicine 10/10/23 Juvenile Detention Officer Relationship Specialty Start Date End Date Diony Horowitz MD [address] [place] [address] PCP - General Family Medicine 10/10/23 Suad Sweeney NP [address] [place] [address] Nurse Practitioner Family Medicine 10/10/23 Juvenile Detention Officer Relationship Specialty Start Date End Date Diony Horowitz MD [address] [place] [address] PCP - General Family Medicine 10/10/23 Suad Sweeney NP [address] [place] [address] Nurse Practitioner Family Medicine 10/10/23 Juvenile Detention Officer Relationship Specialty Start Date End Date Diony Horowitz MD [address] [place] [address] PCP - General Family Medicine 10/10/23 Suad Sweeney NP [address] [place] [address] Nurse Practitioner [facility] 10/10/23 Goals (unrecognized section and content) Goals may be documented in a n alternate section No data available for this sectionGoals may be documented in an alternate sectionGoals may be documented in an alternate sectionGoals may be documented in an alternate sectionGoals may be documented in an alternate sectionGoals may be documented in an alternate sectionGoals may be documented in an alternate section (unrecognized sect ion and content) No Status Records FoundNo Status Records FoundNo Status Records FoundNo Status Records FoundNo Status Records Found INFORMATION SOURCE (unrecogn ized section and content) DATE CREATED AUTHOR 03/07/2022 [facility] DATE CREATED AUTHOR AUTHOR'S ORGANIZ ATION 06/21/2022 [facility] DATE CREATED AUTHOR AUTHOR'S ORGANIZ ATION 10/29/2022 [facility] DATE CREATED AUTHOR AUTHOR'S ORGANIZ ATION 07/27/2023 [facility] DATE CREATED AUTHOR AUTHOR'S ORGANIZ ATION 05/26/2024 [facility] EPIC Reason for Visit (unrecogniz ed section and content) Reason Onset Date Comments Med Refill 12/24/2023 Reason Onset Date Comments Med Refill 10/31/2023 Reason Comments Headache Reason Comments Mass Lump behind Right ea r noticed it 2 day ago Reason Onset Date Comments Med Refill 03/18/2024 Reason Onset Date Comments Med Refill 08/07/2024 Reason Onset Date Comments Med Refill 08/11/2024 Reason Onset Date Comments Med Refill 09/18/2024 FOR RECORDS PERTAINING TO PATIENTS WHO ARE OR HAVE BEEN ENROLLED IN A CHEMICAL DEPENDENCY/SUBSTANCEABUSE PROGRAM, SOME INFORMATION MAY BE OMITTED. This clinical summary was aggregated from multiple sources. Caution should be exercised in using it in the provision of clinical care. This summary normalizes information from multiple sources, and as a consequence, information in this document may materially change the coding, format and clinical context of patient data. In addition, data may be omitted in some cases. CLINICAL DECISIONS SHOULD BE BASED ON THE PRIMARY CLINICAL RECORDS. [facility]. provides no warranty or guarantee of the accuracy or completeness of information in this document.
--- OUTSIDE RECORDS SUMMARY | 2024-10-18 16:09 | XMS_ITS | Encounter Summary ---
Author Organization [facility] Address [address] [place] [address] Phone Care Team Providers Care Campaign Manager Name Role Phone Unavailable Primary Care Provider Unavailabl e Encounter Details Date Type Department Care Team (Late st Contact Info) Description 02/24/2022 Orders Only [facility] [address] [place] [address] Conversion, Onbase Social History Tobacco Use Types Packs/Day Years Used Date Smoking Tobacco: Never Assessed Sex and Gender Information Value Date Recorded Sex Assigned at Not on file Legal Sex Male 1:29 PM EST Gender Identity Not on file Sexual Orientation Not on file documented as of this encounter Plan of Treatment Scheduled Orders Name Type Priority Associated Diagnoses Orde r Schedule OUTSIDE LAB SCAN Lab Ordered: 02/24/2022 documented as of this encounter Visit Diagnoses Not on filedocumented in this encounter
--- OUTSIDE RECORDS SUMMARY | 2024-10-18 16:09 | XMS_ITS | Patient Health Record ---
Author Organization [facility] Address [address] [place] [address] Care Team Providers Care Nickel Plant Operator Name Role Phone Gurmeet Hubbard Primary Care Provider [phone] Allergies Allergen (clinical drug ingredient) Drug/Non Drug Allergy documented on EMR Reaction Allergy Type Onset Date Status homatropine / hydrocodone Hycodan hives Drug Allergy Active Reason For Referral No Information Medications Medication SIG (Take, Route, Frequency, Duration) Notes Start Date End Date Status hydrOXYzine Pamoate 50 MG 1 capsule as n eeded Orally every 8 hrs Active Cyclobenzaprine HCl 5 MG 1-2 tablets as needed Orally TID PRN 05/09/2022 Active Omeprazole 20 MG 1 capsule 30-60 minutes before morning meal Orally Once a day 10/25/2021 Active Zofran 4 MG 1 tablet Orally ever y 4 hrs; Duration: 90 days Active methylPREDNISolone 4 MG as directed Orally 023 Active Escitalopram Oxalate 5 MG 1 tablet Orall y Once a day; Duration: 30 day(s) 01/09/2022 Not-Taking busPIRone HCl 15 MG 2 tabs Orally Twice a day; Duration: 90 days Active Social History Tobacco Use: Social History Observation Description Date Details (start date - stop date) Former Smoker NA - NA Tobacco Screen: Question Answer Notes Are you a: former smoker How long has it been since you last smoked? 1-5 years Alcohol Screening: Question Answer Notes Did you have a drink contain ing alcohol in the past year? Yes How often did you have a dri nk containing alcohol in the past year? Monthly or less (1 point) How many drinks did you have on a typical day when you were drinking in the past year? 1 or 2 (0 points) How often did you have six o r more drinks on one occasion in the past year? Less than monthly (1 point) Points 2 Interpretation Negative PRAPARE Question Answer Notes Date Completed/Updated: 09/23/2021 What is your current housing situation? I have h ousing Are you worried about losing your housing? No What is the highest level of school that you have finished? 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 Check all that apply I do not have problems meeting my needs Has lack of transportation k ept you from medical appointments, meetings, work or from getting things needed for daily living? No How often do you see or talk to people that you care about and feel close to? (For example: talking to friends on the phone, visiting friends or family, going to advent or club meetings) 3 to 5 times a week How stressed are you? Stress is when someone feels tense, nervous, anxious, or cant sleep at night because their mind is troubled A little bit In the past year have you sp ent more than 2 nights in a row in a mcc, care home, group home center, or juvenile correctional facility? No Are you a refugee? No What country are you from? [place] Do you feel physically and e motionally safe where you currently live? Yes In the past year, have you b een afraid of your partner or ex-partner? No PRAPARE Score: 3 Problems Problem Type SNOMED Code ICD Code Onset Dates Problem Status W/U Status Risk Notes Problem Morbid obesity (disorder) (844611650) Morbid (severe) obesity due to excess calories (E66.01) Active confirmed Problem Anxiety (09850412) Anxiety (F41.9) Active confi rmed Problem Panic attack (518897056) Panic attack (F41.0) Active confirmed Problem Constipation (97062917) Constipation, unspecified constipation type (K59.00) Active confirmed Problem Gastroesophageal reflux disease (253742855) Gastroesophageal reflux disease, esophagitis presence not specified (K21.9) Active confirmed Problem Insomnia (549157787) Insomnia, unspecified type (G47.00) Active confirmed Problem Insomnia (351064279) Insomnia, unspecified type (G47.00) Active confirmed Problem Obsessive-compulsiv e disorder (743796804) Obsessive-compulsi ve disorder, unspecified (F42.9) Active confirmed Problem Adjustment disorder with depressed mood (29028298) Adjustment disorder with depressed mood (F43.21) Active confirmed Problem Body mass index 40+ - severely obese (741331169) Body mass index [BMI]40.0-44.9, adult (Z68.41) Active confirmed Plan Of Treatment No Information Medical (General) History Medical History History ICD Code Anxiety Surgical History Surgery Date(Month/Year) HERNIA 09/2020 wisdom teeth removed 01/2016 mass removed from nasal cavity 2009 appendectomy 07/2007
--- OUTSIDE RECORDS SUMMARY | 2024-10-18 16:09 | XMS_ITS | Clinical Summary ---
Author Organization [facility] Address [address] [place] [address] Phone Care Team Providers Care Charger Operator Helper Name Role Phone Unavailable Primary Care Provider Unavailabl e Social History Tobacco Use Types Packs/Day Years Used Date Smoking Tobacco: Never Assessed Sex and Gender Information Value Date Recorded Sex Assigned at Not on file Legal Sex Male 1:29 PM EST Gender Identity Not on file Sexual Orientation Not on file Plan of Treatment Health Maintenance Due Date Last Done Comments HIV Screening 1993 Lipid Panel 1993 Yearly Adult Physical 1993 MMR Vaccines (1 of 1 - Stand roberto carlos series) 1994 Hepatitis C Screening 07/02/2011 Hepatitis B Vaccines (1 of 3 - 19+ 3-dose series) 2012 DTaP/Tdap/Td Vaccines (1 - Tdap) 07/02/2015 HPV Vaccines (1 - 3-dose sta ndard series) 2020 COVID-19 Vaccine (1 - 2023-2 5 season) 2024 Influenza Vaccine (#1) 2024 Zoster Vaccines (1 of 2) 07/02/2043 HIB Vaccines Aged Out No longer eligi ble based on patient's age to complete this topic Hepatitis A Vaccines Aged Out No long er eligible based on patient's age to complete this topic IPV Vaccines Aged Out No longer eligi ble based on patient's age to complete this topic Meningococcal Vaccine Aged Out No alf aimee eligible based on patient's age to complete this topic Pneumococcal Vaccine: Pediat rics and At-Risk Adult Patients Aged Out No longer rosalie gible based on patient's age to complete this topic Rotavirus Vaccines Aged Out No longer eligible based on patient's age to complete this topic
--- OUTSIDE RECORDS SUMMARY | 2024-10-18 16:09 | XMS_ITS | Encounter Summary ---
Author Organization [facility] Address [address] [facility] [place] [address] Care Team Providers Care Teacher Selection Specialist Name Role Phone Diony Horowitz MD Primary Care Provider [phone] Leighann Sweeney PRIVATE SECURITY GUARD Unavailable [phone] Encounter Details Date Type Department Care Team (Late st Contact Info) Description 05/28/2024 Results Follow-Up [facility] [address] [place] [address] [facility] L[facility] Social History Tobacco Use Types Packs/Day Years [...] on file documented as of this encounter Visit Diagnoses Not on filedocumented in this encounter Care Teams Teacher Selection Specialist Relationship Specialty Start Date End Date Diony Horowitz MD PCP - General Family Medicine 10/10/23 Leighann Sweeney NP Nurse Practitioner Family Medicine 10/10/23 documented as of this encounter
--- OUTSIDE RECORDS SUMMARY | 2024-10-18 16:09 | XMS_ITS | Encounter Summary ---
Author Organization [facility] Address [address] [place] [address] Phone Care Team Providers Care Inspector Air Carrier Name Role Phone Unavailable Primary Care Provider Unavailabl e Encounter Details Date Type Department Care Team (Late st Contact Info) Description 10/25/2021 Orders Only [facility] [address] [place] [address] Conversion, Onbase Social History Tobacco Use Types [...] r Schedule OUTSIDE LAB SCAN Lab Ordered: 10/25/2021 documented as of this encounter Visit Diagnoses Not on filedocumented in this encounter
--- OUTSIDE RECORDS SUMMARY | 2024-10-18 16:10 | XMS_ITS | Encounter Summary ---
Author Organization [facility] Address [address] [facility] [place] [address] Care Team Providers Care Honing Machine Set Up Operator Name Role Phone Shaikh MICAH Lehman Unavailable [phone] Shaikh MICAH Lehman Primary Care Provider [phone] Diony Horowitz MD Primary Care Provider [phone] Leighann Sweeney NP Unavailable [phone] Encounter Details Date Type Department Care Team (Late st Contact Info) Description 05/22/2023 External Result Encounter [facility] External Department Unsolicited Shaikh Lehman MD [address] [place] [address] Social History Tobacco Use Types Packs/Day Years [...] Procedure Name Priority Date/Time Associated Diagnosis Comments US ABDOMEN LIMITED 05/22/2023 9: 54 AM EDT documented in this encounter Results * US abdomen limited (05/22/2023 9:54 AM EDT) Anatomical Region Laterality Modality Abdomen Ultrasound 05/22/2023 9:54 AM EDT Impressions 05/22/2023 9:59 AM EDT SLIGHT LIMITED STUDY. FATTY LIVER. CHOLELITHIASIS AND GALLBLADDER POLYPS. Impression dictated by: Jeanette Burton M.D.05/22/2023 9:57 AM Dictation Location: [place] [address] Tech: Yoselyn Elise Transcribed By: CUONG 05/22/23 0957 Dictated By: Jeanette Burton MD 05/22/23 0954 Signed By: <Electronically signed by MD Jeanette Burton in OV> 05/22/23 0957 Narrative 05/22/2023 9:59 AM EDT [facility] Main Thicket [address] [place] [address] Ultrasound Report Signed Patient: Cb Velásquez III MR#: [id number] : 1995 Acct:[id number] Age/Sex: 27 / M ADM Date: 05/22/23 Loc: Room: Type: [facility] Attending Dr: Shaikh Fallon OBRIEN Ordering Provider: [...] fluid within Santoro's pouch. US/US abdomen limited Procedure Note Radiology, Radiologist, - 05/22/2023 [facility] Main Thicket [address] [place] [address] Ultrasound Report Signed Patient: Cb Velásquez IIIMR#: [id number] : 1995Acct:[id number] Age/Sex: 27 / MADM Date: 05/22/23 Loc: Room:Type: [facility] Attending Dr: Shaikh Fallon OBRIEN Ordering Provider: Shaikh Fallon MD Date of Service: 05/22/23 US/US abdomen limited: R10.13 Copies to: Shaikh Fallon MD LIMITED ABDOMINAL ULTRASOUND: CLINICAL HISTORY: Epigastric and right upper quadrant pain withheartburn. COMPARISON: CT 08/02/2020 Assessment is slightly limited by body habitus, bowel gas and limitedacoustic windows. The gallbladder is physiologically distended. There is a stone at thegallbladder neck measuring approximately 5 to 6 mm in size. There are also multiple echogenic fociattached to the gallbladder wall measuring up to 4 mm that may be polyps. No wall thickening orpericholecystic fluid is seen. No intra- or extrahepatic biliary dilatation is evident. The common ductmeasures 2 - 3 mm. The liver parenchyma shows increased echogenicity that may be fattyinfiltration. The pancreas is obscured by bowel gas. There is appropriate hepatopetal flow within themain portal vein. Limited imaging of the right kidney shows no hydronephrosis or fluid withinMorrison's pouch. US/US abdomen limited IMPRESSION: SLIGHT LIMITED STUDY. FATTY LIVER. CHOLELITHIASIS AND GALLBLADDER POLYPS. Impression dictated by: Jeanette Burton M.D.05/22/2023 9:57 AM Dictation Location: [place] [address] Tech: [facility]elyn [facility] Transcribed By: CUONG 05/22/23 0957 Dictated By: Jeanette Burton MD 05/22/23 0954 Signed By: <Electronically signed by MD Jeanette Burton in OV> 05/22/23 0957 us Shaikh Fallon OBRIEN IMG US PROCEDURES Final Result documented in this encounter Visit Diagnoses Not on filedocumented in this encounter Care Teams Honing Machine Set Up Operator Relationship Specialty Start Date End Date Shaikh Lehman MD [address] [place] [address] PCP - [facility] 12/06/22 Shaikh Lehman MD [address] [place] [address] PCP - General Internal Medicine 04/30/23 10/09/23 Diony Horowitz MD [address] [place] [address] PCP - General Family Medicine 10/10/23 Leighann Sweeney NP [address] [place] [address] Nurse Practitioner Family Medicine 10/10/23 documented as of this encounter
--- OUTSIDE RECORDS SUMMARY | 2024-10-18 16:10 | XMS_ITS | Clinical Summary ---
Author Organization [facility] Address [address] [place] [address] Care Team Providers [employer] Name Role Phone Diony Horowitz MD Primary Care Provider [phone] Leighann Sweeney CHEMICAL PRODUCTION TECHNICIAN Unavailable [phone] Allergies Active Allergy Reactions Criticality Noted Date Comments Homatropine 01/29/2023 Other Reaction(s): Hives Hydrocodone Bit-Homatrop Mbr Hives,Unknown 02/06/2023 Hydrocodone Hives 05/31/2023 Medications ondansetron ODT (Zofran-ODT) 4 MG disintegrating tablet Take by mouth every 8 (eight) hours if needed Active mirtazapine (Remeron) 15 MG tabletIndications:G AD (generalized anxiety disorder) Take 1 tablet (15 mg) by mouth at bedtime 90 tablet 5 11/06/19 25 Active omeprazole (PriLOSEC) [address] capsuleIndications: Epigastric pain Take 1 capsule (40 mg) by mouth in the morning. Take before meals. Do not crush or chew. 90 capsule 5 11/10/19 25 Active busPIRone (Buspar) 30 MG tabletIndications:G AD (generalized anxiety disorder) Take 1 tablet (30 mg) by mouth in the morning and 1 tablet (30 mg) before bedtime. 180 tablet 5 12/18/19 25 Active amoxicillin-clavula milagros (Augmentin) 875-125 MG tabletIndications:L ump of scalp Take 1 tablet (875 mg) by mouth in the morning and 1 tablet (875 mg) before bedtime. Do all this for 10 days. Take with food. 20 tablet 5 09/20/19 Active Problems Problem Noted Date Diagnosed Date Candidiasis 05/20/2024 Assessment & Plan (05/20/2024 2:05 PM EDT): Discussed skin care, will trial nystatin Serum total bilirubin elevated 05/10/2024 Assessment & Plan (05/20/2024 2:06 PM EDT): Has US this week Hx of gallbladder removal, however he is having similar sxs as to when had stones Checking US, if normal consider GI Obstructive sleep apnea (adult) (pediatric) 04/05 Assessment & Plan (04/23/2024 3:15 PM EDT): Never had done, has lost job , cannot afford this at this time Body mass index (BMI) 37.0-37.9, adult Obsessive-compulsive disorder 04/23/2024 Assessment & Plan (09/09/2024 4:58 PM EDT): Would like to wean off mitrazapine 1/2 tablet daily for 2 weeks, then every other day for 2 weeks then stop Fu in 2 months Keep buspar Gastroesophageal reflux disease 04/23/2024 Assessment & Plan (09/09/2024 7:19 AM EDT): Recommendations: freq small meals, nothing to eat or drink at least 2 hours prior to bed, limit caffeine, alcohol, as well as spicy foods Meds to limit or avoid if possible: NSAIDS Elevate HOB if possible Current med: omeprazole Assessment & Plan (04/23/2024 7:36 AM EDT): Recommendations: freq small meals, nothing to eat or drink at least 2 hours prior to bed, limit caffeine, alcohol, as well as spicy foods Meds to limit or avoid if possible: NSAIDS Elevate HOB if possible Current med: omeprazole Adjustment disorder with depressed mood 04/24/19 Assessment & Plan (05/20/2024 1:44 PM EDT): PHQ 9=12 Encounter for wellness examination 04/23/2024 Assessment & Plan (04/23/2024 3:56 PM EDT): No exam, just ordering labs Balanitis 04/23/2024 Assessment & Plan (04/23/2024 4:13 PM EDT): Trial ketoconozole Headaches, cluster 11/05/2023 Atypical chest pain 05/25/2023 Morbid (severe) obesity due to excess calories 0 05/01/2023 Assessment & Plan (09/09/2024 4:57 PM EDT): Discussed with patient their BMI (actual, verses recommended). We have also discussed lifestyle modifications: attempts to perform physical activity as chronic conditions allow, also to monitor dietary intake: increasing protein/fruits/veggies and lowering carb intake (unless contraindicated). Limit sodas, juices, and sugary drinks. Wants to look into zepbound or wegovy No contraindications Assessment & Plan (05/20/2024 6:48 AM EDT): Discussed with patient their BMI (actual, verses recommended). We have also discussed lifestyle modifications: attempts to perform physical activity as chronic conditions allow, also to monitor dietary intake: increasing protein/fruits/veggies and lowering carb intake (unless contraindicated). Limit sodas, juices, and sugary drinks. Assessment & Plan (04/23/2024 7:37 AM EDT): Discussed with patient their BMI (actual, verses recommended). We have also discussed lifestyle modifications: attempts to perform physical activity as chronic conditions allow, also to monitor dietary intake: increasing protein/fruits/veggies and lowering carb intake (unless contraindicated). Limit sodas, juices, and sugary drinks. Assessment & Plan (05/01/2023 2:36 PM EDT): Patient educated on risks of increased cardiovascular morbidity/mortality and poor health outcomes associated with unhealthy bodyweight. Elevated TSH 05/01/2023 Assessment & Plan (05/01/2023 2:40 PM EDT): Mild elevation noted previously. Order TSH Epigastric pain 05/01/2023 Assessment & Plan (05/01/2023 2:40 PM EDT): Reports intermittent discomfort in epigastric and RUQ region. Symptoms are usually worse with food intake. He could not tell me if certain kind of foods made his pain worse. Possibly GERD but could be symptomatic cholelithiasis too. Will start on omeprazole. Get RUQ US. RITA (generalized anxiety disorder) 02/07/2023 Assessment & Plan (09/09/2024 7:19 AM EDT): Current med: buspar Assessment & Plan (05/20/2024 1:44 PM EDT): RITA 7=13 Assessment & Plan (05/01/2023 2:36 PM EDT): Overall it is reasonably controlled. He is currently on Buspirone and mirtazapine. Assessment & Plan (02/07/2023 1:01 PM EST): Usually well controlled on current regimen. He stopped using his medications after he was experiencing muscle spasm thinking that this could be due to his medications. He is asking me if he should resume his medications since his muscles spasms persistent even after stopping his medications. He reports poorly controlled anxiety, restlessness, poor sleep. He was educated on importance of never stopping medications on his own and that he could have had a terrible withdrawal reaction. He understood and will resume his medications as before. Muscle spasm 02/07/2023 Assessment & Plan (02/07/2023 12:59 PM EST): Reports for past few weeks, he has noticed intermittent muscle spasm, sporadically, all over his body, without any aggravating or alleviating factors, short lives, not painful. He is worried that he could have ALS or some other underlying neurological disorder. His symptoms - frequency, severity has decreased and improved. Patient asked for a Neurology referral. Order placed. I suspect his symptoms are from underlying anxiety disorder. Elevated blood pressure read ing in office without diagnosis of hypertension 02/07/2023 Assessment & Plan (02/07/2023 12:57 PM EST): Usually well controlled and below 120/80 Elevated in office today but likely due to poorly controlled anxiety. Patient encouraged to continue with home BP monitoring and call office if he experiences orthostatic symptoms or persistently elevated BP. Monitor for now. Lump of scalp 02/07/2023 Assessment & Plan (09/09/2024 4:57 PM EDT): Will try atb in case node Has fu in 2 months will recheck Assessment & Plan (04/23/2024 3:57 PM EDT): Suspect a sebaceous cyst No evidence of infection or inflammation noted No other surrounding lumps to think this could be a node Recommend if changes size, more tender notify provider Assessment & Plan (02/26/2024 11:31 AM EST): Noticed lump on right lateral aspect of skull X 2 days ago. Denies Blurry vision Headaches Dizziness Loss of balance or coordination Memory loss Firm immoveable growth, quarter in size Painless. Will continue to monitor size over next month. Return to office in one month- if any changes will order CT scan. Assessment & Plan (02/07/2023 1:02 PM EST): Small - pea size, skin covered lesion over scalp - likely skin tag. No pain. No overlying skin changes, no change in shape,size. Monitor. Chronic, present for years. Bilateral hearing loss due to cerumen impaction 02/07/2023 Assessment & Plan (02/07/2023 1:03 PM EST): Recurrent cerumen impaction resulting in decreased hearing. Both ears cleaned today via currette. Able to hear better. Right ear was completely block and thick wax was removed. Patient advised to use debrox as needed to prevent re accumulation. Nausea in adult 02/07/2023 Assessment & Plan (02/07/2023 1:04 PM EST): Intermittent nausea as a manifestation of acute anxiety/panic attack. Asking for prn zofran. Ordered. Resolved Problems Problem Noted Date Diagnosed Date Resolved Date Calculus of gallbladder with chronic cholecystitis without obstruction 05/25/20232024 Gallbladder polyp 05/25/2023 04/23/2024 REYES (obstructive sleep apnea) 05/01/2023 05/01/2023 Assessment & Plan (05/01/2023 2:26 PM EDT): Patient is concerned about Sleep Apnea. He REYES (obstructive sleep apnea) 05/01/2023 05/01/2023 Abnormal ultrasound of liver 05/01/2023 05/01/2023 Screening for lead exposure 05/01/2023 04/23/2024 Assessment & Plan (05/01/2023 2:35 PM EDT): Person living with the patient previously was told they had lead poisoning from unclear source. Patient is asking to be checked for lead exposure Ordered. REYES (obstructive sleep apnea) 05/01/2023 04/23/2024 Assessment & Plan (05/01/2023 2:38 PM EDT): Patient reports waking up unrefreshed in the morning. He is unsure of snoring or apneic episodes but has waken up sometime feeling like he was short of breath. He is morbidly obese with thick neck and at high risk of REYES. Will order sleep study Symptomatic cholelithiasis 05/01/2023 0 04/23/2024 Assessment & Plan (05/22/2023 12:31 PM EDT): >>ASSESSMENT AND PLAN FOR RIGHT UPPER QUADRANT ABDOMINAL PAIN WRITTEN ON 05/01/2023 2:39 PM BY SHAIKH EKATERINA MD Reports intermittent discomfort in epigastric and RUQ region. Symptoms are usually worse with food intake. He could not tell me if certain kind of foods made his pain worse. Possibly GERD but could be symptomatic cholelithiasis too. Will start on omeprazole. Get RUQ US. Assessment & Plan (05/22/2023 12:32 PM EDT): Reports intermittent discomfort in epigastric and RUQ region. Symptoms are usually worse with food intake. He could not tell me if certain kind of foods made his pain worse. US shows multiple gall stones. Refer to General surgery. Encounters Date Type Department Care Team Description 09/22/2024 Telephone [facility] [address] [place] [phone] Liliane Doyle NP 09/18/2024 Refill [facility] [address] [place] [phone] Diony Horowitz MD RIAT (generalized anxiety disorder) 09/09/2024 3:40 PM EDT Office Visit [facility] [address] [facility] [place] [phone] Liliane Doyle NP RITA (generalized anxiety disorder) (Primary Dx); Gastroesophageal reflux disease, unspecified whether esophagitis present; Morbid (severe) obesity due to excess calories (CMS-HCC); Lump of scalp; Obsessive-compulsive disorder, unspecified type 09/09/2024 Bamboo flowsheet [facility] [address] [place] [phone] Liliane Doyle NP 08/11/2024 Refill [facility] [address] [place] [phone] Diony Horowitz MD Epigastric pain 08/07/2024 Refill [facility] [address] [place] [phone] Liliane Doyle NP RITA (generalized anxiety disorder) 07/28/2024 Telephone [facility] [address] [place] [phone] Aichholz, Liliane, CHEMICAL PRODUCTION TECHNICIAN from Last 3 Months Immunizations Immunization Administration Dates Next Due DTP 01/11/2022, 4,1993,09/09 DTaP, Unspecified 08/04/1994 HPV 9-Valent 06/27/2017 Hep B, Adolescent or Pediatric 01/13/1994,1993,1993 HiB, unspecified 08/04/1994, 4,1993,09/09 IPV 01/13/1994,1993,1993 Influenza, injectable, quadr ivalent, preservative free 11/12/2017,02/28/2017 Influenza, seasonal, injectable 11/08/2010 MMR 09/20/1998,08/04/1994 Novel [id number], preservative-free 12/15/2008 OPV 09/20/1998 Pneumococcal Polysaccharide PPSV23 11/08/2010 Family History Medical History Relation Name Comments Hypertension Father Cancer Maternal Grandfather Cancer Paternal Grandfather Colon cancer Paternal Grandfather Diabetes Paternal Grandfather Breast cancer Neg Hx Melanoma Neg Hx Ovarian cancer Neg Hx Relation Name Status Comments Brother Alive Father Alive Maternal Grandfather Mother Alive Other Spouse Alive Paternal Grandfather Sister Alive Social History Tobacco Use Types Packs/Day Years Used Date Smoking Tobacco: Former Cigarettes Q uit: 2013 Passive Smoke Exposure: Past Smokeless Tobacco: Never Tobacco Cessation:Counseling Given: Not Answered Alcohol Use Standard Drinks/Week Comments Never 0 (1 standard drink = 0.6 oz pur e alcohol) caffeine: soda/pop PHQ-2 Answer Date Recorded Patient Health Questionnaire-2 Score 0 05/01/2023 Sex and Gender Information Value Date Recorded Sex Assigned at Not on file Legal Sex Male 7:29 PM EDT Gender Identity Not on file Sexual Orientation Not on file Last Filed Vital Signs Vital Sign Reading Time Taken Comments Blood Pressure 130/94 09/09/2024 3:54 PM EDT Pulse 89 09/09/2024 3:54 PM EDT Temperature 37.2 C (99 F) 09/09/2024 3:54 PM EDT Respiratory Rate 18 09/09/2024 3:54 PM EDT Oxygen Saturation 98% 09/09/2024 3:54 PM EDT Inhaled Oxygen Concentration - - Weight 122 kg (268 lb) 09/09/2024 3:54 PM EDT Height 177.8 cm (5' 10 ) 02/26/2024 10:26 AM EST Body Mass Index 38.45 02/26/2024 10:26 AM EST Plan of Treatment Health Maintenance Due Date Last Done Comments Influenza Vaccine (#1) 2024 11/12/2017, 2017, 11/08/2010 Goals Goal Patient Goal Type Associated Problems Recent Progress Patient-Stated? Author Help patient manage antidepressant medication Care Plan Patient on antidepressant monitoring plan No Jamir Ronda Baseline PHQ-9 Care Plan Baseline PHQ-9 No Jamir Ronda Additional Health Concerns Active Problems Noted Date Diagnosed Date Patient on antidepressant monitoring plan 2024 Baseline PHQ-9 08/07/2024 Insurance BS [employer] Relationship Specialty Start Date End Date Diony Horwoitz MD PCP - General Family Medicine 10/10/23 Leighann Sweeney NP Nurse Practitioner Family Medicine 10/10/23
[2024-10-18 16:11] VITALS: BP 130/78; PULSE 72; TEMP 36.8; O2SAT 98; BMI 37.3
--- NOTE | 2024-10-18 17:16 | PC.NURSE ---
states that he was hit by a large cardboard tube yesterday- talked to t nurse on the phone at work and they decided he did not need to be seen for this- woke up today with headache worse then earlier and nause- came in to be evaluated.
--- NOTE | 2024-10-18 17:25 | CT_ITS ---
[address] [address] Patient Name: JENNIFER VERAS MRN: [id number] date: 1995 Sex: M Assigned Patient Location: ER Current Patient Location: ED.MAIN Accession/Order Number: [id number] Exam Date: 10/18/2024 17:35 Report Date: 10/18/2024 17:59 At the request of: GRETEL CHARLES MD Procedure: CT head/brain wo con Unenhanced head CT TECHNIQUE: Contiguous axial imaging of the head. The CT exam was performed using one or more the following dose reduction techniques: Automated exposure control, adjustment of the MA and/or Kv according to patient size, or use of the iterative reconstruction technique. COMPARISON: None HISTORY: Head injury yesterday. Blurred vision. Headache. VENTRICLES: Within normal limits ATROPHY: None BRAIN PARENCHYMA: Adequate mo-white matter differentiation identified. HEMORRHAGE: None HERNIATION: No mass effect or herniation INFARCTION: No recent vascular distribution infarction is seen. EXTRA-AXIAL FLUID COLLECTIONS None MIDBRAIN: Unremarkable NICHOLAS: Unremarkable MEDULLA: Unremarkable SINUSES: Unremarkable ORBITS: Grossly unremarkable MASTOIDS: Unremarkable BONY STRUCTURES Intact ADDITIONAL FINDINGS: CT/CT head/brain wo con IMPRESSION: No acute findings. Impression dictated by: Jean Kohler M.D. 10/18/2024 5:59 PM Dictation Location: [place] [address] Electronically authenticated by: [id number] Y Date: 10/18/2024 17:59
--- NOTE | 2024-10-18 18:03 | ED.HEATRA1 ---
HPI HPI - Head Injury General Chief complaint: Head Injury Stated complaint: BWC, HEAD INJURY Time Seen by Provider: 10/18/24 17:20 Source: patient Mode of arrival: walk-in History of Present Illness HPI Narrative: The patient is coming to the ER for work injury he sustained a head injury yesterday when he was at work, he tried grabbing something from the floor when an object that almost 20 pounds fell on his the front of his head He did not have any loss of consciousness but he had some nausea initially and headache, and the patient still complaining today of frontal headache and some nausea No blurry vision no double vision no other concerns no problems with balance or any weakness The patient also have no neck pain at any time Related Data Home Medications ?Medication ?Instructions ?Recorded ?Confirmed buspirone 30 mg tablet 30 mg PO DAILY 03/17/24 10/18/24 omeprazole 40 mg capsule,delayed 40 mg PO DAILY 03/17/24 10/18/24 release Previous Rx's ?Medication ?Instructions ?Recorded ibuprofen 600 mg tablet 600 mg PO TID PRN pain #20 tabs 10/18/24 Allergies Allergy/AdvReac Type Severity Reaction Status Date / Time No Known Drug Allergies Allergy Verified 10/18/24 16:10 Opioid HPI Opioid Management Most Recent Pain and Opioid Data: Last Pain Scale 3 Today, 18:05 Last MAR Pain Assessment Today, 18:05 Review of Systems ROS Status of ROS 10 or more systems reviewed and unremarkable except as noted in history and below [facility] Social History Little interest or pleasure in doing things: not at all Feeling down, depressed, or hopeless: not at all Exam Narrative Exam Narrative: Nurses notes and vital signs reviewed and patient is not hypoxic. General: Well-appearing and in no apparent distress. Skin: Warm, dry, no pallor noted. No rash. Head: Normocephalic, atraumatic. Neck: Supple, non-tender. Cardiovascular: Regular Rate and Rhythm without murmur, gallop or rub. Respiratory: No accessory muscle use or respiratory distress. Lungs are clear to auscultation, no wheezing, rales or rhonchi Chest Wall: no tenderness Back: No midline thoracic or lumbar vertebral tenderness. No CVA tenderness Musculoskeletal: normal ROM, no calf or popliteal tenderness, no lower extremity edema/swelling GI: Abdomen is soft, non-distended. Normal bowel sounds. No masses appreciated. No tenderness to palpation. No rebound, guarding, or rigidity noted. Neurological: A&O x4. No cranial nerve dysfunction observed. No truncal ataxia. Moves all extremities. Sensation intact. Psychiatric: Cooperative and interactive. Normal mood and affect. Constitutional Vital Signs, click to edit/add: Last Vital Signs Temp 98.2 F 10/18/24 16:11 Pulse 72 10/18/24 16:11 Resp 16 10/18/24 16:11 BP 130/78 10/18/24 16:11 Pulse Ox 98 10/18/24 16:11 O2 Del Method Room Air 10/18/24 16:11 Course Vital Signs Vital signs: Vital Signs Temperature 98.2 F 10/18/24 16:11 Pulse Rate 72 10/18/24 16:11 Respiratory Rate 16 10/18/24 16:11 Blood Pressure 130/78 10/18/24 16:11 Pulse Oximetry 98 10/18/24 16:11 Oxygen Delivery Method Room Air 10/18/24 16:11 Temperature 98.2 F 10/18/24 16:11 Pulse Rate 72 10/18/24 16:11 Respiratory Rate 16 10/18/24 16:11 Blood Pressure 130/78 10/18/24 16:11 Pulse Oximetry 98 10/18/24 16:11 Oxygen Delivery Method Room Air 10/18/24 16:11 MDM - Head Injury MDM Narrative Medical decision making narrative: The patient presented to us after 24 hours of head injury, that happened at work and the patient mentioned that he did not have loss of consciousness but because of his nausea and vomiting and the headache that is continuous today the patient will have a CT head The patient also was treated with Toradol In case of a negative CT head the patient will be discharged with supportive care and to continue work after few days of rest CT head is negative the patient was discharged with recommendation to rest for the next 2 days going back to work on October 20 Patient instructed about monitoring symptoms and concerning symptoms the patient to come back to the ER Discharge Plan Discharge Chief Complaint: Head Injury Clinical Impression: Head trauma Patient Disposition: Home, Self-Care Condition: Good Prescriptions / Home Meds: New ibuprofen 600 mg tablet 600 mg PO TID PRN (Reason: pain) Qty: 20 0RF No Action buspirone 30 mg tablet 30 mg PO DAILY omeprazole 40 mg capsule,delayed release(DR/EC) 40 mg PO DAILY Print Language: Danish Instructions: Head Injury (DC) Referrals: Liliane Doyle NP [Primary Care Provider, Family Practice] - 1 week
[2024-10-18] MEDS: KETOROLAC TROMETHAMINE 60 MG/2 ML VIAL IM (18:05)
== END 2024-10-18 18:42 | disposition home or self-care (01) ==
PROVIDERS: Emergency Provider Emergency Medicine; PCP Nurse Practitioner
DX: S09.90XA Unspecified injury of head, initial encounter (principal); W22.8XXA Striking against or struck by other objects, initial encounter
CPT/HCPCS: 70450; 96372; 99285; J1885